=== PATIENT | female | born 1990 | race Caucasian/White ===

== ENCOUNTER 2019-11-26 16:00 | Outpatient (CLI) | payer OTHER, SELFPAY | END 2019-11-26 16:01 | disposition home or self-care (01) | LOC: CHSIMG 16:02 | PROVIDERS: PCP Family Medicine; Visit Provider Nurse Practitioner Family | DX: Z53.8 Procedure and treatment not carried out for other reasons (principal) | CPT/HCPCS: 99199 ==

== ENCOUNTER 2019-12-25 23:47 | Emergency (ER) | payer OTHER, SELFPAY ==
--- NOTE | ~2019-12-25 | CT_ITS ---
EXAMINATION: CT abdomen pelvis wo con DATE: 12/26/2019 03:45 INDICATION: Left flank pain. TECHNIQUE: Computed tomography (CT) of the abdomen and pelvis was performed without intravenous contr ast. Automated exposure control and iterative reconstruction technique were employed. The dose-length product was 1617.18 mGy-cm. COMPARISON: CT abdomen and pelvis 10/28/2016 FINDINGS: The visualized portions of the lung bases demonstrate mild atelectasis. No pleural effusion . The heart size is normal. No pericardial effusion. The liver and spleen are normal. There are magana es of cholecystectomy. The pancreas, adrenal glands, and kidneys are normal. There is an intrauterine device in expected position. There is diverticulosis of the colon without evidence of diverticulitis . There are no dilated loops of bowel. The appendix is normal. There are no pathologically enlarged l ymph nodes. There is no free intraperitoneal fluid. There is moderate thoracolumbar spondylosis. IMPRESSION: 1. No etiology for the patient's symptoms. Reviewed, dictated and finalized at location A. [employer]
--- NOTE | 2019-12-25 23:53 | ED.ABDPAIN ---
HPI - Abdominal Pain General Chief Complaint: Abdominal Pain Stated Complaint: Pelvic and side pain Time Seen by Provider: 12/25/19 23:51 Source: patient and RN notes reviewed Mode of arrival: ambulatory History of Present Illness MD elicited complaint: flank pain (left) Pertinent past history: past UTI Onset (ago): day(s) (2) Pain Consistency: intermittent Location: L flank Severity: moderate Pain scale (0-10): 8 Quality: stabbing and sharp Radiation: none Migration to: no migration Exacerbating factors: movement Relieving factors: nothing Associated symptoms: nausea Related Data Home Medications Medication Instructions Recorded Confirmed duloxetine 40 mg PO DAILY 12/26/19 12/26/19 levonorgestrel [Mirena] 1 device INTRAUTERINE ONCE 12/26/19 12/26/19 Allergies Allergy/AdvReac Type Severity Reaction Status Date / Time acetaminophen Allergy Intermediate Nausea and Verified 10/28/16 14:44 Vomiting latex Allergy Intermediate Rash Verified 10/28/16 14:44 tramadol Allergy Intermediate Dizziness Verified 10/28/16 14:44 HYDROCODONE BIT Allergy Intermediate Nausea and Uncoded 10/28/16 14:44 Vomiting KETOROLAC TROMETHAMINE AdvReac Intermediate dizziness Uncoded 10/28/16 14:44 Review of Systems Constitutional: Constitutional: Reports chills and Denies fever(s) Eyes: Eyes: Reports no additional eye complaints ENT: Reports system reviewed and no additional complaints, except as documented Cardiovascular: Cardiovascular: Reports no additional cardiovascular complaints Respiratory: Respiratory: Reports no additional respiratory complaints Gastrointestinal: Gastrointestinal: Denies constipation, Denies diarrhea, Reports nausea and Denies vomiting Genitourinary: Genitourinary: Reports as per HPI, Denies nocturia, Denies dysuria and Denies vaginal discharge Musculoskeletal: Musculoskeletal: Reports no additional musculoskeletal complaints Neurologic: Reports system reviewed and no additional complaints, except as documented Hematologic/Lymphatic: Hematologic/Lymphatic: Reports no additional hematologic/lymphatic complaints [facility] Past Medical History Medical History (Updated 12/26/19 @ 01:33 by Anam Ospina MD) Anxiety Surgical History Surgical History (Updated 12/26/19 @ 00:05 by Anam Ospina MD) History of myringotomy Previous section Social History Social History (Updated 12/26/19 @ 00:03 by Anam Ospina MD) Smoking status: Current every day smoker Alcohol intake: current Alcohol use details: Occasional Substance use: never Exam Const: General: healthy appearing, no acute distress and alert Nutritional Appearance: well nourished and obese morbidly obese Orientation/consciousness: patient oriented x3 Other: female nurse in room during examination. HENMT: Head: normal to inspection Ears: external ears normal General nose exam: Normal external nose present Mouth: Yes lip normal and Yes moist mucous membranes Eyes: Conjunctivae: conjunctivae normal Pupils: Equal, round and reactive pupils present EOM: EOMs intact bilaterally Neck: Neck: normal visual inspection Resp: Effort & Inspection: normal respiratory effort Auscultation: clear to auscultation bilaterally Cardio: Rate: regular rate Rhythm: regular rhythm GI: GI Palp: Yes Soft to palpation and Yes Tenderness to palpation present (GI) (LUQ) Auscultation: normal bowel sounds : General: Yes CVA tenderness on the left Back/Spine/Pelvis: Cervical Spine: cervical ROM normal Thoracic/Lumbar Spine: thoraco-lumbar ROM normal Skin: General skin exam: normal color Rashes: no rashes Neuro: General: patient oriented x3, moves all extremities and no focal motor deficits Speech: normal speech Extrem: General: normal to inspection and no clubbing, cyanosis or edema Psych: Appearance: grossly normal and well kempt Mental Status: mental status grossly normal Affect: normal affect Attitude: fabio
[2019-12-25 23:55] VITALS: BP 132/92; PULSE 94; RESP 20; TEMP 36.9; O2SAT 96
[2019-12-26] MEDS: KETOROLAC (*BKC) 60 MG/2 ML VIAL IM (00:04)
[2019-12-26 00:25] LABS: Basophils Absolute Auto 0.06 K/mm3 (0.00-0.10); Basophils Percent Auto 0.6 % (0.0-1.0); Eosinophils Absolute Auto 0.08 K/mm3 (0.02-0.50); Eosinophils Percent Auto 0.8 % (1.0-6.0); Hematocrit 40.2 % (35.0-49.0); Hemoglobin 13.5 g/dL (12.0-15.0); Immature Granulocyte Absolute 0.03 K/mm3 (0.00-0.00); Immature Granulocyte Percent A 0.3 % (0.0-0.0); Lymphocytes Absolute Auto 2.99 K/mm3 (1.10-4.50); Lymphocytes Percent Auto 29.9 % (18.0-42.0); Mean Corpuscular HGB Conc 33.6 g/dL (32.0-36.0); Mean Corpuscular Hemoglobin 29.4 pg (27.0-31.0); Mean Corpuscular Volume 87.6 fL (78.0-102.0); Mean Platelet Volume 10.8 fl (9.2-11.8); Neutrophils Absolute Auto 6.1 K/mm3 (1.7-7.2); Neutrophils Percent Auto 60.4 % (50.0-70.0); Platelet Count Result 242 K/mm3 (150-420); Red Blood Count 4.59 M/mm3 (4.20-5.40); Red Cell Distribution Width 13.1 % (11.6-14.4)
[2019-12-26 00:25] LABS: Add Urine Microscopic? YES; Appearance Urine Clear (Clear); Bilirubin Urine 2+ (Negative); Blood Urine Negative (Negative); Color Urine Yellow (Yellow); Glucose Urine UA Negative (Negative); Ketones Urine Trace (Negative); Leukocyte Esterase Ur Negative LEU/UL (Negative); Nitrate Urine Negative (Negative); Protein Urine Negative (Negative); Specific Grav Ur >= 1.030 (1.010-1.020); Urobilinogen Urine 0.2 mg/dL (0.2-1.0); pH Urine 5.5 (5.0-8.0)
[2019-12-26 00:30] LABS: Pregnancy On Board Control Positive; Specific Gravity Ur > 1.030 (1.010-1.035); Urine Pregnancy Test Negative
[2019-12-26 00:31] LABS: Bacteria Urine 1+ /hpf; RBC Urine 0-2 /hpf (0-2); Squamous Epithelial Cell Urine Few /hpf (Few); WBC Urine 0-3 /hpf (0-3)
[2019-12-26 00:36] LABS: Alanine Aminotransferase 20 U/L (14-59); Albumin Level 3.6 g/dL (3.4-5.0); Alkaline Phosphatase 23 U/L (46-116); Anion Gap 12.7 mmol/L (7-16); Aspartate Amino Transferase 15 U/L (15-37); Bilirubin,Total 0.2 mg/dL (0.00-1.00); Blood Urea Nitrogen 17 mg/dL (7-18); Calcium 8.8 mg/dL (8.5-10.1); Carbon Dioxide 26 mmol/L (21-32); Chloride 106 mmol/L (98-108); Estimated CRCL calculation 98 ml/min; Estimated Glomerular Filt Rate > 60; Glucose 89 mg/dL (70-99); Osmolality Calculated 292 mOsm/kg (285-295); Potassium 3.7 mmol/L (3.5-5.1); Sodium 141 mmol/L (136-145); Total Protein 7.5 g/dL (6.4-8.2)
[2019-12-26 00:41] LABS: CRP < 0.2 mg/dL (0.0-0.9)
[2019-12-26 01:32] VITALS: BP 123/66; PULSE 88; RESP 20; O2SAT 98
== END 2019-12-26 01:39 | disposition home or self-care (01) ==
PROVIDERS: Emergency Provider Emergency Medicine; PCP Family Medicine
DX: N83.202 Unspecified ovarian cyst, left side (principal)
CPT/HCPCS: 36415; 74176; 80053; 81001; 81025; 85025; 86140; 96372; 99283; J1885

== ENCOUNTER 2020-07-22 23:46 | Emergency (ER) | payer OTHER, SELFPAY ==
[2020-07-22 23:50] VITALS: BP 137/82; PULSE 91; RESP 20; TEMP 36.5; O2SAT 97
[2020-07-23] VITALS: PULSE 86
[2020-07-23 00:13] VITALS: BP 123/79; PULSE 82; RESP 18; O2SAT 98
--- NOTE | 2020-07-23 00:15 | ED.CHESTPAIN ---
HPI - Chest Pain General Chief Complaint: Chest Pain Stated Complaint: Chest pain Source: patient Mode of arrival: ambulatory History of Present Illness HPI narrative: This is a 29-year-old female presents to the emergency department with some atypical chest pain, musculoskeletal in nature reproducible with some a palpation, has been having this pain off and on for the last week with a episode of nausea with no vomiting currently no shortness of breath no abdominal pain patient is a current smoker morbidly obese with no history of coronary artery disease. Has been doing some heavy lifting, with currently no nausea or vomiting no abdominal pain no diarrhea constipation. Patient also states that she has been having some burning upon urination with no hematuria no fever chills. complaint: chest discomfort Onset (ago): day(s) Timing of current episode: episodic Onset: during rest Pain radiation: none Severity: mild Quality: aching Relieving factors: nothing Exacerbating factors: nothing Treatment prior to arrival: none Risk Factors Coronary artery disease risk factors: smoking history Related Data Home Medications Medication Instructions Recorded Confirmed duloxetine 40 mg PO DAILY 12/26/19 07/23/20 ergocalciferol (vitamin D2) 1,250 mcg PO WEEKLY 07/23/20 07/23/20 Allergies Allergy/AdvReac Type Severity Reaction Status Date / Time acetaminophen Allergy Intermediate Nausea and Verified 10/28/16 14:44 Vomiting latex Allergy Intermediate Rash Verified 10/28/16 14:44 tramadol Allergy Intermediate Dizziness Verified 10/28/16 14:44 HYDROCODONE BIT Allergy Intermediate Nausea and Uncoded 10/28/16 14:44 Vomiting KETOROLAC TROMETHAMINE AdvReac Intermediate dizziness Uncoded 10/28/16 14:44 Review of Systems Review of Systems: All systems reviewed & are unremarkable except as noted in HPI and below PMFSH Past Medical History Medical History Anxiety Surgical History Surgical History History of myringotomy Previous section Social History Social History Smoking status: Current every day smoker Alcohol intake: current Substance use: never Exam Const: General: no acute distress Orientation/consciousness: patient oriented x3 HENMT: Head: normal to inspection Eyes: Conjunctivae: conjunctivae normal Pupils: Equal, round and reactive pupils present EOM: EOMs intact bilaterally Neck: Neck: normal visual inspection, no lymphadenopathy and no meningeal signs Chest: Chest palpation & inspection: normal inspection of the chest Other: Reproducible chest pain with palpation Resp: Effort & Inspection: normal respiratory effort Auscultation: clear to auscultation bilaterally Cardio: Rate: regular rate Rhythm: regular rhythm GI: Auscultation: normal bowel sounds : General: Yes no CVA tenderness Urinary Catheter: Urinary Catheter: patent and draining Back/Spine/Pelvis: Back: no CVA tenderness Skin: General skin exam: normal color Rashes: no rashes Course Course Emergency Course: patient received IM Toradol which caused her pain to improve, also patient was tested for a UTI with urinalysis. Vital Signs Vital signs: Vital Signs Temperature 36.5 C 07/22/20 23:50 Pulse Rate 91 07/22/20 23:50 Respiratory Rate 20 07/22/20 23:50 Blood Pressure 137/82 07/22/20 23:50 Pulse Oximetry 97 07/22/20 23:50 Temperature 36.5 C 07/22/20 23:50 Pulse Rate 82 07/23/20 00:13 Respiratory Rate 18 07/23/20 00:13 Blood Pressure 123/79 07/23/20 00:13 Pulse Oximetry 98 07/23/20 00:13 MDM - Chest Pain ECG Data EKG #1: Attestation: I personally reviewed and interpreted this ECG as follows: ECG completion date: 07/23/20 ECG completion time: 00:19 Prior ECG tracings: not avail
[2020-07-23] MEDS: KETOROLAC (*BKC) 60 MG/2 ML VIAL IM (00:21)
[2020-07-23 00:33] LABS: Add Urine Microscopic? YES; Appearance Urine Clear (Clear); Bilirubin Urine Negative (Negative); Blood Urine Negative (Negative); Color Urine Yellow (Yellow); Glucose Urine UA Negative (Negative); Ketones Urine Negative (Negative); Leukocyte Esterase Ur Trace (Negative); Nitrate Urine Negative (Negative); Protein Urine Negative (Negative); Specific Grav Ur >= 1.030 (1.010-1.020); Urobilinogen Urine 0.2 mg/dL (0.2-1.0); pH Urine 5.5 (5.0-8.0)
[2020-07-23 00:43] LABS: Bacteria Urine Trace /hpf; Squamous Epithelial Cell Urine Moderate /hpf (Few); Trichomonas Urine Present /hpf; WBC Urine 21-30 /hpf (0-3)
[2020-07-23] MEDS: NITROFURANTOIN MONOHYD MACROCR 100 MG CAP PO (01:02)
[2020-07-23] MEDS: metroNIDAZOLE 250 MG TABLET 500 MG PO (01:02)
[2020-07-23 01:03] VITALS: BP 138/78; PULSE 80; RESP 18; TEMP 36.4; O2SAT 98
== END 2020-07-23 01:05 | disposition home or self-care (01) ==
PROVIDERS: Emergency Provider Emergency Medicine; PCP Family Medicine
DX: M94.0 Chondrocostal junction syndrome [Tietze] (principal); N39.0 Urinary tract infection, site not specified
CPT/HCPCS: 81001; 93005; 96372; 99283; A9270; J1885

== ENCOUNTER 2020-09-28 11:46 | Outpatient (CLI) | payer OTHER, SELFPAY ==
[2020-09-29 14:22] LABS: SARS-CoV-2 RNA PCR Negative
== END 2020-09-28 11:47 | disposition home or self-care (01) ==
PROVIDERS: PCP Family Medicine; Visit Provider Family Medicine
DX: Z20.828 Contact with and (suspected) exposure to other viral communicable diseases (principal)
CPT/HCPCS: 87635; C9803; U0003

== ENCOUNTER 2020-09-30 10:29 | Outpatient (CLI) | payer OTHER, SELFPAY ==
[2020-09-30 11:13] LABS: SARS-CoV-2 Ag Negative (Negative)
== END 2020-09-30 10:30 | disposition home or self-care (01) ==
LOC: CHSLAB 10:31
PROVIDERS: PCP Family Medicine; Visit Provider Family Medicine
DX: Z20.828 Contact with and (suspected) exposure to other viral communicable diseases (principal)
CPT/HCPCS: 87426

== ENCOUNTER 2020-10-02 11:15 | Outpatient (CLI) | payer OTHER, SELFPAY ==
[2020-10-02 12:24] LABS: Influenza Control Valid (Valid)
[2020-10-04 18:34] LABS: SARS-CoV-2 RNA PCR Negative
== END 2020-10-02 11:16 | disposition home or self-care (01) ==
LOC: CHSLAB 11:18
PROVIDERS: PCP Family Medicine; Visit Provider Family Medicine
DX: R50.9 Fever, unspecified (principal); Z20.828 Contact with and (suspected) exposure to other viral communicable diseases
CPT/HCPCS: 87635; 87804; C9803; U0003

== ENCOUNTER 2020-12-19 19:04 | Emergency (ER) | payer OTHER, SELFPAY ==
--- NOTE | ~2020-12-19 | XR_ITS ---
EXAMINATION: XR ribs RT 2V DATE: 12/19/2020 19:45 INDICATION: Right rib pain. TECHNIQUE: 4 views of the right ribs were obtained. COMPARISON: Chest 2 views 03/12/2018 FINDINGS: There is no right-sided pneumonia, pleural effusion, or pneumothorax. The heart size is nor mal. Surgical clips in the right upper quadrant are likely from cholecystectomy. IMPRESSION: 1. No rib fracture. Reviewed, dictated and finalized at location A. ANICAL SPECIALIST IMPRESSION: 1. No rib fracture.
[2020-12-19 19:23] VITALS: BP 149/105; PULSE 91; RESP 18; TEMP 36.5; O2SAT 98
[2020-12-19] MEDS: ACETAMINOPHEN 500 MG TABLET 1000 MG PO (19:31)
--- NOTE | 2020-12-19 19:51 | ED.EXTPRO ---
HPI - Extremity Problem General Chief complaint: Extremity Problem,Nontraumatic Stated complaint: Pain in back Source: patient Mode of arrival: ambulatory Limitations: no limitations History of Present Illness HPI Narrative: this is a 30-year-old patient was diagnosed with COVID approximately 4 days ago, has been having a cough and over the last couple of hours has felt pain in her right mid rib area with some severe coughing. Patient was not short of breath O vital signs are stable O2 sats 98% cough is nonproductive with no fever or chills no nausea vomiting no abdominal pain no chest pain. MD Complaint: other ( Right mid medial rib pain) Onset (ago): day(s) Pain Consistency: intermittent Location: right Severity scale (1-10): 6 Quality: dull Radiation: none Relieving factors: nothing Exacerbating factors: nothing Associated symptoms: other ( cough) Related Data Home Medications Medication Instructions Recorded Confirmed duloxetine 40 mg PO DAILY 12/26/19 12/19/20 Allergies Allergy/AdvReac Type Severity Reaction Status Date / Time latex Allergy Intermediate Rash Verified 10/28/16 14:44 tramadol Allergy Intermediate Dizziness Verified 10/28/16 14:44 ketorolac Allergy Mild Rash Verified 07/24/20 17:13 hydrocodone AdvReac Mild Vomiting Verified 07/24/20 17:12 Review of Systems Review of Systems: All systems reviewed & are unremarkable except as noted in HPI and below PMFSH Past Medical History Medical History (Updated 12/19/20 @ 19:55 by Alexi Kwok MD) Anxiety Surgical History Surgical History History of myringotomy Previous section Social History Social History Smoking status: Current every day smoker Alcohol intake: current Substance use: never Exam Const: General: no acute distress Orientation/consciousness: patient oriented x3 HENMT: Head: normal to inspection Eyes: Conjunctivae: conjunctivae normal Pupils: Equal, round and reactive pupils present EOM: EOMs intact bilaterally Neck: Neck: normal visual inspection, no lymphadenopathy and no meningeal signs Chest: Chest palpation & inspection: normal inspection of the chest Other: Tenderness with palpation mid axillary mid rib area with some on the right with palpation Resp: Effort & Inspection: normal respiratory effort Auscultation: clear to auscultation bilaterally Cardio: Rate: regular rate Rhythm: regular rhythm GI: GI Palp: Yes Soft to palpation : General: Yes no CVA tenderness Back/Spine/Pelvis: Back: no CVA tenderness Skin: General skin exam: normal color Rashes: no rashes Extrem: General: normal to inspection and no pedal edema Psych: Appearance: grossly normal Mental Status: mental status grossly normal Thought content: Yes Normal thought content present Course Course Emergency Course: patient given a g of Tylenol and which has improved her discomfort, reviewed x-ray which shows no acute fractures. Vital Signs Vital signs: Vital Signs Temperature 36.5 C 12/19/20 19:23 Pulse Rate 91 12/19/20 19:23 Respiratory Rate 18 12/19/20 19:23 Blood Pressure 149/105 H 12/19/20 19:23 Pulse Oximetry 98 12/19/20 19:23 Temperature 36.5 C 12/19/20 19:23 Pulse Rate 91 12/19/20 19:23 Respiratory Rate 18 12/19/20 19:23 Blood Pressure 149/105 H 12/19/20 19:23 Pulse Oximetry 98 12/19/20 19:23 Critical Care Time Critical Care Time Critical Care Time: No Discharge Plan Discharge Clinical Impression: Cough Sprain, ribs Qualifiers: Encounter type: initial encounter Qualified Code(s): S23.41XA - Sprain of ribs, initial encounter Patient Disposition: Home, Self-Care Condition: Stable Instructions: Antibiotic Form, Sprain (ED) Additional Instructions: take medicine as prescribed, can use Tylenol extra-strength for pain and follow-up with ruthie
[2020-12-19 19:57] VITALS: BP 140/97; PULSE 85; RESP 18; TEMP 36.6; O2SAT 98
== END 2020-12-19 20:03 | disposition home or self-care (01) ==
PROVIDERS: Emergency Provider Emergency Medicine; PCP Family Medicine
DX: R05 Cough (principal); S23.41XA Sprain of ribs, initial encounter
CPT/HCPCS: 71100; 99283

== ENCOUNTER 2021-04-07 13:54 | Outpatient (CLI) | payer OTHER, SELFPAY ==
[2021-04-07 14:59] LABS: SARS-CoV-2 RNA PCR Negative (Negative)
== END 2021-04-07 13:55 | disposition home or self-care (01) ==
LOC: CHSLAB 13:57
PROVIDERS: PCP Family Medicine; Visit Provider Family Medicine
DX: J00 Acute nasopharyngitis [common cold] (principal); Z20.822 Contact with and (suspected) exposure to COVID-19
CPT/HCPCS: C9803; U0003; U0005

== ENCOUNTER 2021-05-14 23:45 | Emergency (ER) | payer OTHER, SELFPAY ==
--- NOTE | ~2021-05-14 | CT_ITS ---
EXAMINATION: CT abdomen pelvis wo con DATE: 05/15/2021 01:14 Indication: Microhematuria , bilateral flank pain. TECHNIQUE: Computed tomography (CT) of the abdomen and pelvis was performed without intravenous contr ast. Automated exposure control and iterative reconstruction technique were employed. Exam dose: 133 6.99 mGy-cm total exam DLP. COMPARISON: 12/26/[address] abdomen pelvis FINDINGS: There is minimal dependent right lower lobe atelectasis. Normal heart size. No pericardial or pleural effusion. No hepatic space-occupying mass lesion. Status post cholecystectomy. No bile duct or pancreatic duct dilatation. No pancreatic mass lesion or calcification. Normal splenic size. Normal morphology of the adrenal glands. No renal mass lesion or urinary tract calculus or hydroureteronephrosis. Normal caliber of the abdominal aorta. No intraperitoneal or retroperitoneal or pelvic mass lesion or adenopathy or ascites. There is an IUD within the uterus. Uterus and adnexal areas are otherwise unremarkable. The urinary b ladder is relatively evacuated, unremarkable. Normal appendix. There is diverticulosis of the left and right colon; no CT evidence of diverticulitis. No bowel obstr uction or intraperitoneal free air is detected. Small fat-containing umbilical hernia. Other than degenerative spurring of the thoracic and lumbar spine the included skeletal structures ar e unremarkable. IMPRESSION: No urinary tract calculus or hydroureteronephrosis Normal appendix Diverticulosis of left and right colon; no CT evidence of diverticulitis IUD within uterus Reviewed, dictated and finalized at Location [facility]. Reviewed, dictated and finalized at location A.
[2021-05-14 23:45] VITALS: BP 128/78; PULSE 78; RESP 20; TEMP 36.4; O2SAT 97
--- NOTE | 2021-05-14 23:52 | ED.ABDPAIN ---
HPI - Abdominal Pain General Chief Complaint: Abdominal Pain Stated Complaint: PAIN Time Seen by Provider: 05/14/21 23:52 Source: patient Mode of arrival: ambulatory Limitations: no limitations History of Present Illness HPI narrative: 30-year-old woman comes in today complaining of left lower abdominal pain radiating to her groin and right flank pain that has been present for a week. She states that she has had some dysuria, urgency and frequency. Patient states that she has had nausea but no vomiting. She denies constipation, diarrhea, blood in her stools, blood in her urine, Cough, cold symptoms, fever, chills. MD elicited complaint: abdominal pain Pertinent past history: none Onset (ago): week(s) (1) Location: LLQ and R flank Severity: severe Quality: sharp Radiation: none Migration to: no migration Exacerbating factors: nothing Associated symptoms: nausea Related Data Allergies Allergy/AdvReac Type Severity Reaction Status Date / Time latex Allergy Intermediate Rash Verified 10/28/16 14:44 tramadol Allergy Intermediate Dizziness Verified 10/28/16 14:44 ketorolac Allergy Mild Rash Verified 07/24/20 17:13 hydrocodone AdvReac Mild Vomiting Verified 07/24/20 17:12 Review of Systems Review of Systems: All systems reviewed & are unremarkable except as noted in HPI and below Constitutional: Constitutional: Denies chills and Denies fever(s) Eyes: Eyes: Denies change in vision and Denies photophobia ENT: Denies nasal congestion and Denies sore throat Cardiovascular: Cardiovascular: Denies chest pain and Denies radiating jaw, neck or arm pain Respiratory: Respiratory: Denies cough, Denies dyspnea and Denies wheezing Gastrointestinal: Gastrointestinal: Reports abdominal pain, Denies diarrhea, Reports nausea and Denies vomiting Genitourinary: Genitourinary: Denies hematuria, Reports nocturia and Reports dysuria Musculoskeletal: Musculoskeletal: Denies back pain, Denies arthralgias and Denies joint swelling Integumentary/Breasts: Skin/Breast: Denies pruritus, Denies erythema and Denies rash Neurologic: Denies vertigo, Denies dizziness and Denies syncope Hematologic/Lymphatic: Hematologic/Lymphatic: Denies easy bleeding and Denies easy bruising Allergic/Immunologic: Allergic/Immunologic: Denies lip swelling and Denies throat swelling [facility] Past Medical History Medical History (Updated 05/15/21 @ 01:40 by Gerald Garcia MD) Anxiety Surgical History Surgical History History of myringotomy Previous section Social History Social History Smoking status: Current every day smoker Alcohol intake: current Alcohol use details: Occasional Substance use: never Exam Const: General: healthy appearing and alert Orientation/consciousness: patient oriented x3 Limitations: no limitations Other: [id number] acute distress HENMT: Head: normal to inspection Ears: external ears normal, TM's normal bilaterally and EAC's normal General nose exam: Normal nares present Face and sinus: normal facial exam Mouth: Yes moist mucous membranes Throat: posterior oropharynx normal Eyes: Conjunctivae: conjunctivae normal Pupils: Equal, round and reactive pupils present EOM: EOMs intact bilaterally Resp: Effort & Inspection: normal respiratory effort and not labored Auscultation: clear to auscultation bilaterally, no rales, no rhonchi and no wheezes Cardio: Rate: regular rate Rhythm: regular rhythm Heart sounds: no murmurs GI: GI Palp: Yes Soft to palpation, Yes Tenderness to palpation present (GI) ( mild left lower quadrant and mild right flank tenderness), No Guarding due to palpation present (GI), No Rigid due to palpation and No Palpable mass present Auscultation: normal bowel sounds Skin: General skin exam: normal color, no jaundice and no pallor Rashes: no rashes Neuro: Gene
[2021-05-15] MEDS: SODIUM CHLORIDE 0.9% IV 1,000 ML 999 ML IV CONT (00:25)
[2021-05-15] MEDS: PANTOPRAZOLE SODIUM IV 40 MG VIAL IV PUSH (00:25)
[2021-05-15] MEDS: ONDANSETRON INJ 4 MG/2 ML VIAL IV PUSH (00:27)
[2021-05-15 00:30] LABS: Basophils Absolute Auto 0.07 K/mm3 (0.00-0.10); Basophils Percent Auto 0.8 % (0.0-1.0); Eosinophils Absolute Auto 0.12 K/mm3 (0.02-0.50); Eosinophils Percent Auto 1.3 % (1.0-6.0); Hematocrit 42.1 % (35.0-49.0); Hemoglobin 13.9 g/dL (12.0-15.0); Immature Granulocyte Absolute 0.02 K/mm3 (0.00-0.00); Immature Granulocyte Percent A 0.2 % (0.0-0.0); Lymphocytes Absolute Auto 3.07 K/mm3 (1.10-4.50); Lymphocytes Percent Auto 33.3 % (18.0-42.0); Mean Corpuscular Hemoglobin 29.1 pg (27.0-31.0); Mean Corpuscular Volume 88.1 fL (78.0-102.0); Mean Platelet Volume 10.3 fl (9.2-11.8); Monocytes Percent Auto 6.5 % (2.0-11.0); Neutrophils Absolute Auto 5.3 K/mm3 (1.7-7.2); Neutrophils Percent Auto 57.9 % (50.0-70.0); Platelet Count Result 291 K/mm3 (150-420); Red Blood Count 4.78 M/mm3 (4.20-5.40); Red Cell Distribution Width 12.6 % (11.6-14.4); White Blood Count 9.2 K/mm3 (4.8-10.8)
[2021-05-15 00:36] LABS: Add Urine Microscopic? YES; Appearance Urine Cloudy (Clear); Bilirubin Urine Negative (Negative); Blood Urine 2+ (Negative); Color Urine Light Yellow (Yellow); Glucose Urine UA Negative (Negative); Ketones Urine Negative (Negative); Leukocyte Esterase Ur Trace LEU/UL (Negative); Nitrate Urine Negative (Negative); Pregnancy On Board Control Positive; Protein Urine Negative (Negative); Specific Grav Ur >= 1.030 (1.010-1.020); Urine Pregnancy Test Negative; Urobilinogen Urine 0.2 mg/dL (0.2-1.0)
[2021-05-15 00:38] LABS: Alanine Aminotransferase 32 U/L (14-59); Albumin Level 3.9 g/dL (3.4-5.0); Alkaline Phosphatase 28 U/L (46-116); Anion Gap 12 mmol/L (8-16); Aspartate Amino Transferase 19 U/L (15-37); Bilirubin,Total 0.2 mg/dL (0.00-1.00); Blood Urea Nitrogen 20 mg/dL (7-18); Carbon Dioxide 27 mmol/L (21-32); Chloride 104 mmol/L (98-108); Estimated Glomerular Filt Rate > 60; Glucose 86 mg/dL (70-99); Lipase 123 U/L (73-393); Osmolality Calculated 297 mOsm/kg (285-295); Potassium 3.7 mmol/L (3.5-5.1); Sodium 143 mmol/L (136-145); Total Protein 7.7 g/dL (6.4-8.2)
[2021-05-15 00:43] LABS: Lactic Acid Reflex 0.8 mmol/L (0.4-2.0)
[2021-05-15 00:46] LABS: Bacteria Urine 2+ /hpf; Squamous Epithelial Cell Urine Many /hpf (Few); WBC Urine 0-3 /hpf (0-3)
[2021-05-15 02:01] VITALS: BP 112/68; PULSE 68; RESP 20; TEMP 36.2; O2SAT 98
== END 2021-05-15 02:10 | disposition home or self-care (01) ==
PROVIDERS: Emergency Provider Emergency Medicine; PCP Family Medicine
DX: R10.32 Left lower quadrant pain (principal)
CPT/HCPCS: 36415; 74176; 80053; 81001; 81025; 83605; 83690; 85025; 96361; 96374; 96375; 99283; 99284; C9113; J2405; J7030

== ENCOUNTER 2021-05-25 09:04 | Outpatient (CLI) | payer OTHER, SELFPAY ==
--- NOTE | ~2021-05-25 | US_ITS ---
EXAMINATION: US pelvic complete w TV DATE: 05/25/2021 09:41 INDICATION: Left lower quadrant pain TECHNIQUE: Multiple transabdominal and endovaginal sonographic images of the pelvis were obtained. COMPARISON: CT, 05/15/2021 FINDINGS: The uterus measures 8.3 x 4.3 x 4.9 cm. An IUD is in expected position. Nabothian cysts are noted in the cervix. The endometrial complex measures 9 mm. The right ovary measures 3.0 x 1.2 x 1.8 cm. The left ovary measures 4.0 x 2.8 x 3.2 cm and contains a 2.5 cm cyst. There is normal vascular flow in the ovaries. There is no free fluid in the pelvis. IMPRESSION: 1. No sonographic correlate for the patient's symptoms. Reviewed, dictated and finalized at location A.
== END 2021-05-25 09:05 | disposition home or self-care (01) ==
PROVIDERS: PCP Family Medicine; Visit Provider Nurse Practitioner Family
DX: R10.32 Left lower quadrant pain (principal)
CPT/HCPCS: 76830; 76856

== ENCOUNTER 2021-09-08 12:37 | Outpatient (CLI) | payer OTHER, SELFPAY ==
[2021-09-08 13:28] LABS: Influenza A QL RT-PCR Negative (Negative); Influenza B QL RT-PCR Negative (Negative); SARS-CoV-2 RNA PCR Negative (Negative)
== END 2021-09-08 12:38 | disposition home or self-care (01) ==
LOC: CHSLAB 12:40
PROVIDERS: PCP Family Medicine; Visit Provider Family Medicine
DX: J00 Acute nasopharyngitis [common cold] (principal); Z20.822 Contact with and (suspected) exposure to COVID-19
CPT/HCPCS: 87502; C9803; U0003; U0005

== ENCOUNTER 2021-09-16 09:53 | Outpatient (CLI) | payer OTHER, SELFPAY ==
--- NOTE | ~2021-09-16 | XR_ITS ---
XR sinus min 3V 09/16/2021 10:11 Indication: Sinusitis Procedure: 5 views of the sinuses Comparison: No prior studies for comparison. Findings: Sinuses are pneumatized. No significant opacification or air-fluid level demonstrated. Orbi ts intact. Rightward nasal septal deviation. Impression: 1: No significant sinus disease identified. Reviewed, dictated and finalized at location A. ING COACH Impression: 1: No significant sinus disease identified.
== END 2021-09-16 09:54 | disposition home or self-care (01) ==
LOC: CHSIMG 09:55
PROVIDERS: PCP Family Medicine; Visit Provider Nurse Practitioner Family
DX: J32.9 Chronic sinusitis, unspecified (principal); R09.3 Abnormal sputum
CPT/HCPCS: 70220

== ENCOUNTER 2021-10-20 14:10 | Outpatient (CLI) | payer OTHER, SELFPAY ==
--- NOTE | ~2021-10-20 | XR_ITS ---
EXAMINATION:XR_[id number]_CR DATE: 10/20/2021 14:49 INDICATION: Neck pain TECHNIQUE: AP, lateral, and odontoid views of the cervical spine are provided. COMPARISON: None FINDINGS: Alignment is normal. The odontoid is intact. No fracture is identified. Vertebral body heig hts and disk spaces are normal. Prevertebral soft tissues are normal. IMPRESSION: 1. No acute osseous abnormality. Reviewed, dictated and finalized at location F. [employer]UCTION [employer]LLER
== END 2021-10-20 14:11 | disposition home or self-care (01) ==
LOC: CHSLAB 14:13
PROVIDERS: PCP Family Medicine; Visit Provider Family Medicine
DX: M54.2 Cervicalgia (principal)
CPT/HCPCS: 72040

== ENCOUNTER 2022-03-22 08:18 | Outpatient (CLI) | payer OTHER, SELFPAY ==
--- NOTE | ~2022-03-22 | US_ITS ---
EXAMINATION: US soft tissue upper back DATE: 03/22/2022 08:51 INDICATION: Lipoma with chronic lumps on the back for years. TECHNIQUE: Multiple grayscale and Doppler ultrasound images of the region of concern at the back were obtained. COMPARISON: None FINDINGS: There are 3 ill-defined regions of increased echogenicity of the subcutaneous fat at the region of co ncern. The largest measures 1.3 x 1.2 x 0.9 cm at the right lower back with smaller lesions measuring 11 x 10 x 8 mm at the right lower back, 9 x 6 x 3 mm at the left lower back and 7 x 6 x 6 mm in the mid back. There appear to be multiple corresponding subtle ill-defined nodular regions with fat atten uation but slightly higher than the surrounding subcutaneous fat at the posterior lower chest and abd omen on prior CT studies dating back to 09/23/2015 suggesting a benign etiology. IMPRESSION: 1. Multiple ill-defined regions of increased echogenicity of the subcutaneous fat centered at the pal pable abnormalities of concern correspond to several fat attenuation lesions on CT dating back to 5. Differential would include sequela of chronic inflammation, hibernomas or less likely lipomas. Reviewed, dictated and finalized at location B. IMPRESSION: 1. Multiple ill-defined regions of increased echogenicity of the subcutaneous f at centered at the palpable abnormalities of concern correspond to several fat attenuation lesions on CT dating back to 2014. Differential would include seque la of chronic inflammation, hibernomas or less likely lipomas.
== END 2022-03-22 08:19 | disposition home or self-care (01) ==
LOC: CHSIMG 08:20
PROVIDERS: PCP Family Medicine; Visit Provider Nurse Practitioner Family
DX: D17.9 Benign lipomatous neoplasm, unspecified (principal)
CPT/HCPCS: 76604

== ENCOUNTER 2022-06-19 15:20 | Emergency (ER) | payer OTHER, SELFPAY ==
--- NOTE | ~2022-06-19 | XR_ITS ---
EXAM: XR ankle LT 2V, XR foot LT 2V DATE: 06/19/2022 15:55 HISTORY: lateral ankle/heel pain . COMPARISON: None available. FINDINGS: Normal mineralization. No fracture or dislocation. No lytic or blastic lesion. Osteophytos is at the tibiotalar joint large Achilles enthesophyte. Tiny plantar enthesophyte. No erosion or maru osteal change. Soft tissues within normal limits. IMPRESSION: Degenerative change at the tibiotalar joint. Large Achilles enthesophyte. Minor plantar e nthesopathy. Reviewed, dictated and finalized at location K. IMPRESSION: Degenerative change at the tibiotalar joint. Large Achilles entheso phyte. Minor plantar enthesopathy.
[2022-06-19 15:29] VITALS: BP 122/88; PULSE 82; RESP 16; TEMP 36.8; O2SAT 100
[2022-06-19] MEDS: KETOROLAC (*BKC) 60 MG/2 ML VIAL IM (15:47)
--- NOTE | 2022-06-19 16:48 | ED.LOWEXIN ---
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 There is no swelling no inflammation no fever chills no known injury. complaint: other ( Achilles tendon tenderness and the ball of her foot on the left tender) Onset (ago): day(s) Severity: moderate Severity scale (1-10): 6 Relieving factors: NSAID Exacerbating factors: weight bearing, movement and palpation Related Data Home Medications Medication Instructions Recorded Confirmed escitalopram oxalate 10 mg tablet 10 mg PO DAILY 06/19/22 06/19/22 naproxen 500 mg tablet 500 mg PO DAILY 06/19/22 06/19/22 Allergies Allergy/AdvReac Type Severity Reaction Status Date / Time latex Allergy Intermediate Rash Verified 10/28/16 14:44 tramadol Allergy Intermediate Dizziness Verified 10/28/16 14:44 hydrocodone AdvReac Mild Stopped Verified 06/19/22 15:36 Breathing Review of Systems Review of Systems: All systems reviewed & are unremarkable except as noted in HPI and below PMFSH Past Medical History Medical History (Updated 06/19/22 @ 16:51 by Alexi Kwok MD) Anxiety Surgical History Surgical History History of myringotomy Previous section Social History Social History Smoking status: Current every day smoker Alcohol intake: current Alcohol use details: Occasional Substance use: never Exam Const: General: healthy appearing and no acute distress Nutritional Appearance: well nourished HENMT: Head: normal to inspection Face and sinus: normal facial exam Mouth: Yes Normal oral and palatal mucosa present Eyes: Conjunctivae: conjunctivae normal Pupils: Equal, round and reactive pupils present EOM: EOMs intact bilaterally Neck: Neck: normal visual inspection, no lymphadenopathy and no meningeal signs Chest: Chest palpation & inspection: normal inspection of the chest Resp: Effort & Inspection: normal respiratory effort Auscultation: clear to auscultation bilaterally Cardio: Rate: regular rate Rhythm: regular rhythm GI: GI Palp: Yes Soft to palpation Auscultation: normal bowel sounds Skin: General skin exam: normal color Rashes: no rashes Neuro: General: patient oriented x3, moves all extremities, no meningeal signs and no focal motor deficits Extrem: General: normal to inspection and no clubbing, cyanosis or edema Psych: Mental Status: mental status grossly normal Course Course Emergency Course: Patient received IM Toradol and pain level has improved significantly will place an Pradeep wrap and advised patient to take ibuprofen rest and follow up primary if symptoms persist or worsen. Vital Signs Vital signs: Vital Signs Temperature 36.8 C 06/19/22 15:29 Pulse Rate 82 06/19/22 15:29 Respiratory Rate 16 06/19/22 15:29 Blood Pressure 122/88 06/19/22 15:29 Pulse Oximetry 100 06/19/22 15:29 Oxygen Delivery Room Air 06/19/22 15:29 Temperature 36.8 C 06/19/22 15:29 Pulse Rate 82 06/19/22 15:29 Respiratory Rate 16 06/19/22 15:29 Blood Pressure 122/88 06/19/22 15:29 Pulse Oximetry 100 06/19/22 15:29 Oxygen Delivery Room Air 06/19/22 15:29 Critical Care Time Critical Care Time Critical Care Time: No Discharge Plan Discharge Clinical Impression: Tendinitis of ankle Patient Disposition: Home, Self-Care Condition: Stable Instructi
[2022-06-19 17:02] VITALS: BP 143/7; PULSE 70; RESP 6; TEMP 36.8; O2SAT 98
== END 2022-06-19 17:03 | disposition home or self-care (01) ==
PROVIDERS: Emergency Provider Emergency Medicine; PCP Family Medicine
DX: M76.62 Achilles tendinitis, left leg (principal)
CPT/HCPCS: 73600; 73620; 96372; 99283; J1885

== ENCOUNTER 2022-06-24 07:26 | Outpatient (CLI) | payer OTHER, SELFPAY ==
--- NOTE | ~2022-06-24 | MR_ITS ---
EXAMINATION: MR foot LT wo con DATE: 06/24/2022 09:17 INDICATION: Left foot pain. TECHNIQUE: Magnetic resonance imaging (MRI) of the left foot was performed without intravenous contra st. COMPARISON: Left foot radiographs 06/19/2022 FINDINGS: Bone alignment is normal. No fracture. There is mild osteoarthritis of first metatarsophala ngeal joint and some of the interphalangeal joints. Lisfranc ligament is normal. The flexor and exten sor tendons are normal. The musculature is normal. IMPRESSION: 1. Mild polyarticular osteoarthritis. Reviewed, dictated and finalized at location A.
--- NOTE | ~2022-06-24 | MR_ITS ---
EXAMINATION: MR ankle LT wo con DATE: 06/24/2022 09:17 INDICATION: Left foot pain. Achilles tendinitis. TECHNIQUE: Magnetic resonance imaging (MRI) of the left ankle was performed without intravenous contr ast. Sequences included sagittal PD-weighted FS FSE, sagittal PD-weighted FSE, coronal PD-weighted FS FSE, coronal PD-weighted FSE, axial PD-weighted FS FSE, and axial PD-weighted FSE. COMPARISON: Left ankle radiographs 06/19/2022 FINDINGS: Medial ankle ligaments: There are changes of prior sprain of the deltoid ligament characterized by increased signal of the jacinto perficial component distally. The deep component of deltoid ligament is intact. Lateral ankle ligaments: There are changes of prior sprains of anterior talofibular ligament, calcaneofibular ligament, and an terior tibiofibular ligament characterized by thickening and increased signal intensity. Posterior ta lofibular ligament and posterior tibiofibular ligaments are intact. Tendons: The medial and anterior ankle tendons are normal. The peroneal tendons are normal. There is mild Achi lles tendinopathy. There is an enthesophyte at the Achilles attachment on calcaneus. Plantar fascia: Normal. Bones/other: There is an osteochondral lesion of posteromedial talar dome measuring 11 x 7 mm characterized by inc reased signal intensity of the subchondral bone. No evidence of an unstable fragment. There is mild o steoarthritis of talonavicular joint. Fluid: There is a 2.1 x 1.9 x 0.7 cm ganglion cyst dorsolateral to the talonavicular joint. There is a small ankle joint effusion. IMPRESSION: 1. Osteochondral lesion of posteromedial talar dome. 2. Changes of medial and lateral ankle sprains. 3. 2.1 x 1.9 x 0.7 cm ganglion cyst dorsolateral to the talonavicular joint. 4. Mild Achilles tendinopathy. Reviewed, dictated and finalized at location A.
== END 2022-06-24 07:27 | disposition home or self-care (01) ==
LOC: CHSIMG 07:27
PROVIDERS: PCP Family Medicine; Visit Provider Family Medicine
DX: M79.672 Pain in left foot (principal); M76.62 Achilles tendinitis, left leg
CPT/HCPCS: 73718; 73721

== ENCOUNTER 2022-07-11 15:34 | Outpatient (RCR) | payer OTHER, SELFPAY ==
--- NOTE | 2022-07-11 17:22 | PTOPEVAL1 ---
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 She turned the corner and heard a loud pop in her L ankle. She cannot recall how her foot was positioned when it popped. It also felt like it locked up as well. She felt she was unable to walk after this and had a large amount of swelling and went straight to the ER. She has had multiple sprains in the past but knew that this was different right away. She received an LALA wrap to help with swelling. She was having difficulty with sleeping but reports that this has been getting better. She reports pain now when standing on her ankle and walking. She identifies pain at achilles region (medial> lateral) and has increased pain with plantar flexion. She bought a boot to use and reports this gives a lot of relief to her ankle. Reports that pain is staying the same over time. Pt reports some N/T when foot is elevated and she feels it on the plantar surface of her toes. She went to an ortho MD yesterday who said surgery could be an option. Pt does not yet have a follow-up with a foot/ankle surgeon but plans to get scheduled soon . Wants to be able to work without pain. Reported Pain Level Pain Score 6: Self Report Assessment PT Clinical Summary Pt presents to physical therapy with L ankle pain, decreased mobility, decreased strength, and antalgic gait. 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 She was provided with an HEP focused on improving ankle/foot mobility and strength within her tolerance. She will benefit from skilled PT to facilitate symptom relief, improve the aforementioned impairments, and return to functional and recreational activities. Plan of Care Interventions Electrical Stimulation,Gait Training,Hot Pack/Cold Pack,Manual Therapy,Neuro Re-education,Patient/ Caregiver Educati,Therapeutic Activities, Therapeutic Exercise PT Services Indicated Yes Treatment Frequency and 2x week for 8 weeks Duration These treatments will address the objective and functional deficits as define
== END 2022-07-20 13:44 | disposition home or self-care (01) ==
LOC: CHSPT 15:34
PROVIDERS: PCP Family Medicine; Visit Provider Nurse Practitioner Family
DX: M93.279 Osteochondritis dissecans, unspecified ankle and joints of foot (principal)
CPT/HCPCS: 97110; 97161

== ENCOUNTER 2022-08-07 15:44 | Outpatient (CLI) | payer OTHER, SELFPAY ==
[2022-08-07 16:42] LABS: RSV Control CHS Valid (Valid)
[2022-08-07 16:43] LABS: Influenza A QL RT-PCR Negative (Negative); Influenza B QL RT-PCR Negative (Negative); SARS-CoV-2 RNA PCR Negative (Negative)
== END 2022-08-07 15:45 | disposition home or self-care (01) ==
LOC: CHSLAB 15:47
PROVIDERS: PCP Family Medicine; Visit Provider Family Medicine
DX: R05.1 Acute cough (principal); Z20.822 Contact with and (suspected) exposure to COVID-19
CPT/HCPCS: 87420; 87502; C9803; U0003; U0005

== ENCOUNTER 2022-09-22 14:54 | Emergency (ER) | payer OTHER, SELFPAY ==
--- NOTE | ~2022-09-22 | XR_ITS ---
EXAMINATION: XR foot RT min 3V DATE: 09/22/2022 15:33 INDICATION: Right foot bruising TECHNIQUE: Dorsoplantar, lateral, and 2 oblique views of the right foot were obtained. COMPARISON: 02/21/2017 FINDINGS: There is an acute, essentially nondisplaced neck fracture of the fourth proximal phalanx. T here is a possible nondisplaced neck fracture in the third proximal phalanx. There is dorsal soft tis derek swelling of the foot and fourth toe. The joint spaces are normal. IMPRESSION: 1. Acute neck fracture of the fourth proximal phalanx and possible nondisplaced neck fracture of the third proximal phalanx. Reviewed, dictated and finalized at location A. [employer]
[2022-09-22 14:56] VITALS: BP 136/76; PULSE 79; RESP 20; TEMP 36.6; O2SAT 98
[2022-09-22] MEDS: IBUPROFEN 400 MG TABLET 800 MG (16:08)
--- NOTE | 2022-09-22 16:10 | ED.LOWEXIN ---
HPI - Extremity Injury (Lower) General Chief Complaint: Extremity Injury, Lower Stated Complaint: right foot/toe injury Time Seen by Provider: 09/22/22 14:56 Source: patient and RN notes reviewed Mode of arrival: ambulatory Limitations: no limitations History of Present Illness complaint: foot injury Injury: Right: foot Type of Injury: blunt Place: home Severity: mild Severity scale (1-10): 4 Relieving factors: immobilization Exacerbating factors: weight bearing and movement Context: direct blow Associated symptoms: snap/pop sensation Other symptoms: none Related Data Home Medications Medication Instructions Recorded Confirmed escitalopram oxalate 10 mg tablet 10 mg PO DAILY 06/19/22 09/22/22 naproxen 500 mg tablet 500 mg PO DAILY 06/19/22 09/22/22 Allergies Allergy/AdvReac Type Severity Reaction Status Date / Time latex Allergy Intermediate Rash Verified 10/28/16 14:44 tramadol Allergy Intermediate Dizziness Verified 10/28/16 14:44 hydrocodone AdvReac Mild Stopped Verified 06/19/22 15:36 Breathing Review of Systems Review of Systems: All systems reviewed & are unremarkable except as noted in HPI and below Constitutional: Constitutional: Reports no additional constitutional complaints Eyes: Eyes: Reports no additional eye complaints ENT: Reports system reviewed and no additional complaints, except as documented Cardiovascular: Cardiovascular: Reports no additional cardiovascular complaints Respiratory: Respiratory: Reports no additional respiratory complaints Gastrointestinal: Gastrointestinal: Reports no additional gastrointestinal complaints Genitourinary: Genitourinary: Reports no additional female genitourinary complaints Musculoskeletal: Musculoskeletal: Reports no additional musculoskeletal complaints Integumentary/Breasts: Skin/Breast: Reports system reviewed and no additional complaints, except as docu Neurologic: Reports system reviewed and no additional complaints, except as documented Psychiatric: Psychiatric: Reports no additional psychiatric complaints Endocrine: Endocrine: Reports no additional endocrine complaints Hematologic/Lymphatic: Hematologic/Lymphatic: Reports no additional hematologic/lymphatic complaints Allergic/Immunologic: Allergic/Immunologic: Reports no additional allergic/immunologic complaints [facility] Past Medical History Medical History Anxiety Toe fracture Surgical History Surgical History History of myringotomy Previous section Social History Social History Smoking status: Current every day smoker Alcohol intake: current Alcohol use details: Occasional Substance use: never Exam Const: General: healthy appearing, no acute distress and well nourished Nutritional Appearance: well nourished Orientation/consciousness: patient oriented x3 Limitations: no limitations HENMT: Head: normal to inspection Ears: external ears normal, TM's normal bilaterally and EAC's normal Face/Nose/Sinus: Normal external nose present, Normal nares present, normal facial exam and sinuses nontender Face and sinus: normal facial exam and sinuses nontender Mouth: Yes Normal oral and palatal mucosa present and Yes moist mucous membranes Teeth and gingiva: dentition normal Throat: posterior oropharynx normal Eyes: Conjunctivae: conjunctivae normal Pupils: Equal, round and reactive pupils present EOM: EOMs intact bilaterally Neck: Neck: normal visual inspection, no lymphadenopathy and no meningeal signs Chest: Chest palpation & inspection: normal inspection of the chest Resp: Effort & Inspection: normal respiratory effort Auscultation: clear to auscultation bilaterally Cardio: Rate: regular rate Rhythm: regular rhythm GI: GI Palp: Yes Soft to palpation and No Tenderness to palpatio
[2022-09-22 16:14] VITALS: BP 136/76; PULSE 84; RESP 20; TEMP 36.6; O2SAT 97
== END 2022-09-22 16:29 | disposition home or self-care (01) ==
PROVIDERS: Emergency Provider Emergency Medicine; PCP Family Medicine
DX: S92.514A Nondisplaced fracture of proximal phalanx of right lesser toe(s), initial encounter for closed fracture (principal)
CPT/HCPCS: 73630; 99284; A9270

== ENCOUNTER 2022-12-02 09:08 | Outpatient (CLI) | payer OTHER, SELFPAY ==
[2022-12-02 09:29] LABS: Add Urine Microscopic? YES; Appearance Urine Clear (Clear); Basophils Absolute Auto 0.05 K/mm3 (0.00-0.10); Basophils Percent Auto 0.6 % (0.0-1.0); Bilirubin Urine Negative (Negative); Blood Urine 3+ (Negative); Color Urine Light Yellow (Yellow); Eosinophils Absolute Auto 0.15 K/mm3 (0.02-0.50); Eosinophils Percent Auto 1.9 % (1.0-6.0); Glucose Urine UA Negative (Negative); Hematocrit 44.1 % (35.0-49.0); Hemoglobin 14.5 g/dL (12.0-15.0); Immature Granulocyte Absolute 0.03 K/mm3 (0.00-0.00); Immature Granulocyte Percent A 0.4 % (0.0-0.0); Ketones Urine Negative (Negative); Leukocyte Esterase Ur Negative LEU/UL (Negative); Mean Corpuscular HGB Conc 32.9 g/dL (32.0-36.0); Mean Corpuscular Hemoglobin 28.4 pg (27.0-31.0); Mean Corpuscular Volume 86.3 fL (78.0-102.0); Mean Platelet Volume 10.4 fl (9.2-11.8); Monocytes Absolute Auto 0.49 K/mm3 (0.10-0.90); Monocytes Percent Auto 6.3 % (2.0-11.0); Neutrophils Absolute Auto 5.3 K/mm3 (1.7-7.2); Neutrophils Percent Auto 67.8 % (50.0-70.0); Nitrate Urine Negative (Negative); Platelet Count Result 272 K/mm3 (150-420); Protein Urine Negative (Negative); Red Blood Count 5.11 M/mm3 (4.20-5.40); Red Cell Distribution Width 12.5 % (11.6-14.4); Specific Grav Ur 1.025 (1.010-1.020); Urobilinogen Urine 0.2 mg/dL (0.2-1.0); White Blood Count 7.8 K/mm3 (4.8-10.8)
[2022-12-02 09:41] LABS: Bacteria Urine 3+ /hpf; Squamous Epithelial Cell Urine Moderate /hpf (Few); WBC Urine None seen /hpf (0-3)
[2022-12-02 09:58] LABS: Hemoglobin A1C 5.1 % (<5.7)
[2022-12-02 10:07] LABS: Alanine Aminotransferase 23 U/L (14-59); Albumin Level 3.5 g/dL (3.4-5.0); Alkaline Phosphatase 28 U/L (46-116); Anion Gap 5 mmol/L (8-16); Aspartate Amino Transferase 14 U/L (15-37); Bilirubin,Total 0.3 mg/dL (0.00-1.00); Blood Urea Nitrogen 18 mg/dL (7-18); Calcium 8.5 mg/dL (8.5-10.1); Carbon Dioxide 30 mmol/L (21-32); Chloride 105 mmol/L (98-108); Cholesterol 252 mg/dL (0-200); Estimated Glomerular Filt Rate > 60; Free T4 Free Thyroxine 0.84 ng/dL (0.76-1.46); Glucose 94 mg/dL (70-99); HDL Direct 33 mg/dL (40-60); LDL Cholesterol Calculated 181 mg/dL (<130); Osmolality Calculated 291 mOsm/kg (285-295); Potassium 4.3 mmol/L (3.5-5.1); Sodium 140 mmol/L (136-145); Total Protein 7.2 g/dL (6.4-8.2); Triglycerides 192 mg/dL (0-150)
[2022-12-07 18:19] LABS: NIL 0.04 IU/mL; Quantiferon TB Plus, 1T NEGATIVE (NEGATIVE); TB1-NIL 0.11 IU/mL
== END 2022-12-02 09:09 | disposition home or self-care (01) ==
LOC: CHSLAB 09:11
PROVIDERS: PCP Family Medicine; Visit Provider Nurse Practitioner Family
DX: Z11.1 Encounter for screening for respiratory tuberculosis (principal); F43.22 Adjustment disorder with anxiety; E66.01 Morbid (severe) obesity due to excess calories; G43.109 Migraine with aura, not intractable, without status migrainosus; R73.9 Hyperglycemia, unspecified
CPT/HCPCS: 36415; 80053; 80061; 81001; 83036; 84439; 84443; 85025; 86480

== ENCOUNTER 2023-01-10 17:27 | Outpatient (CLI) | payer OTHER, SELFPAY ==
--- NOTE | ~2023-01-10 | XR_ITS ---
EXAM: XR knee RT 3V DATE: 01/10/2023 18:14 HISTORY: RIGHT SUPEROLATERAL KNEE PAIN SEVERAL DAYS. NKI. . COMPARISON: 07/25/2007, images only. FINDINGS: Normal mineralization. No fracture or dislocation. No lytic or blastic lesion. Small volum e joint fluid. Mild tricompartmental osteophytosis. No erosion or periosteal change. Soft tissues wit hin normal limits. IMPRESSION: Mild tricompartmental right knee osteoarthritis. Small right knee joint effusion. Reviewed, dictated and finalized at location K. IMPRESSION: Mild tricompartmental right knee osteoarthritis. Small right knee j oint effusion.
== END 2023-01-10 17:28 | disposition home or self-care (01) ==
LOC: CHSIMG 17:29
PROVIDERS: PCP Family Medicine; Visit Provider Nurse Practitioner Family
DX: M25.561 Pain in right knee (principal); M17.11 Unilateral primary osteoarthritis, right knee; M25.461 Effusion, right knee
CPT/HCPCS: 73562

== ENCOUNTER 2023-01-29 08:53 | Emergency (ER) | payer OTHER, SELFPAY ==
[2023-01-29 08:58] VITALS: BP 142/89; PULSE 101; RESP 18; TEMP 36.9; O2SAT 98
[2023-01-29 09:03] VITALS: BP 142/89; PULSE 101; RESP 18; TEMP 36.9; O2SAT 98
--- NOTE | 2023-01-29 09:29 | ED.GENADULT ---
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 She has previously been on Bactrim. On Mirena, control Five days ago, the patient went to primary care provider due to swelling and pain in the pilonidal region of her lower back. She was prescribed Augmentin and metronidazole. Unfortunately, this does not use the cover MRSA. The patient's pilonidal cyst abscess has increased in size since that time and is becoming more tender. No drainage. She has tried topical remedies without success. No fevers. Did have 2 episodes of emesis yesterday. Has nausea today and yesterday and the day before. No other complaints. No abdominal pain. No previous history of pilonidal abscess. Related Data Home Medications Medication Instructions Recorded Confirmed buspirone 10 mg tablet 10 mg PO BID 01/29/23 01/29/23 escitalopram oxalate 20 mg tablet 20 mg PO DAILY 01/29/23 01/29/23 Allergies Allergy/AdvReac Type Severity Reaction Status Date / Time latex Allergy Intermediate Rash Verified 01/29/23 09:12 tramadol Allergy Intermediate Dizziness Verified 01/29/23 09:12 hydrocodone AdvReac Mild Anaphylaxis Verified 01/29/23 09:12 Review of Systems Review of Systems: All systems reviewed & are unremarkable except as noted in HPI and below Constitutional: Constitutional: Reports as per HPI, Reports no additional constitutional complaints, Denies chills, Denies excessive sweating, Denies fatigue, Denies fever(s), Denies headache(s) and Denies weakness Eyes: Eyes: Reports as per HPI, Reports no additional eye complaints, Denies change in vision and Denies photophobia ENT: Reports system reviewed and no additional complaints, except as documented, Reports as per HPI, Denies dysphagia, Denies vertigo, Denies dizziness, Denies headache(s), Denies lip swelling, Denies nasal congestion, Denies sore throat, Denies throat swelling and Denies tongue swelling Cardiovascular: Cardiovascular: Reports as per HPI, Reports no additional cardiovascular complaints, Denies chest pain, Denies syncope, Denies rapid heart rate and Denies dyspnea Respiratory: Respiratory: Reports as per HPI, Reports no additional respiratory complaints, Denies chest congestion, Denies cough, Denies dyspnea and Denies wheezing Gastrointestinal: Gastrointestinal: Reports as per HPI, Reports no additional gastrointestinal complaints, Denies abdominal pain, Denies constipation, Denies dysphagia, Denies diarrhea, Denies nausea and Denies vomiting Genitourinary: Genitourinary: Reports as per HPI, Denies hematuria, Denies urinary frequency, Denies dysuria, Denies urinary incontinence and Denies urinary urgency Musculoskeletal: Musculoskeletal: Reports no additional musculoskeletal complaints, Denies back pain, Denies myalgias, Denies arthralgias, Denies joint swelling and Denies numbness Integumentary/Breasts: Skin/Breast: Reports system reviewed and no additional complaints, except as docu, Reports swelling ( in the pilonidal region, tender to touch), Denies pruritus, Denies erythema, Denies rash and Denies skin ulcer Neurologic: Reports system reviewed and no additional complaints, except as documented, Reports as per HPI, Denies confusion, Denies vertigo, Denies dizziness, Denies syncope, Denies headache(s), Denies focal weakness, Denies numbness and Denies weakness Psychiatric: Psychiatric: Reports as per HPI, Denies anxiety, Denies confusion, Denies depression, Denies homicidal ideation and Denies suicidal ideation Endocrine: Endocrine: Reports no additional endocrine complaints, Denies excessive sweating, Denies fatigue, Denies polydipsia and Denies polyuria Hematologic/Lymphatic: Hematologic/Lymph
--- NOTE | 2023-01-29 09:35 | PC.NURSE ---
consent for I&D of pilonidal cyst signed.
[2023-01-29] MEDS: ACETAMINOPHEN 500 MG TABLET 1000 MG PO (10:18)
[2023-01-29] MEDS: IBUPROFEN 400 MG TABLET 800 MG PO (10:19)
[2023-01-29] MEDS: SULFAMETHOXAZOLE/TRIMETHOPRIM 800/160 MG DS TABLET 1 TAB PO (10:19)
[2023-01-29 10:36] VITALS: BP 136/85; PULSE 95; RESP 16; TEMP 36.8; O2SAT 99
--- NOTE | 2023-02-01 13:43 | PC.NURSE ---
final culture report reviewed from pilonidal cyst wound. no growth . no change in plan of care
== END 2023-01-29 10:36 | disposition home or self-care (01) ==
PROVIDERS: Emergency Provider Emergency Medicine; PCP Family Medicine
DX: L05.01 Pilonidal cyst with abscess (principal); F17.200 Nicotine dependence, unspecified, uncomplicated; Z86.14 Personal history of Methicillin resistant Staphylococcus aureus infection
CPT/HCPCS: 10061; 87070; 87205; 99283; A9270

== ENCOUNTER 2023-01-30 21:18 | Emergency (ER) | payer OTHER, SELFPAY ==
[2023-01-30 21:21] VITALS: BP 151/83; PULSE 98; RESP 18; TEMP 36.7; O2SAT 99
--- NOTE | 2023-01-30 21:21 | ED.GENADULT ---
HPI - General Adult General Chief complaint: Unspecified Stated complaint: Abscess Source: patient Mode of arrival: ambulatory Limitations: no limitations History of Present Illness HPI narrative: 32-year-old female with a history of anxiety, pilonidal disease status post incision and drainage yesterday presents to the ER for -- wound dressing and packing -- pain in incision site. No fever or chills. Onset (ago): day(s) Location: buttocks ( Upper gluteal cleft) Radiation: non-radiation Severity: moderate Quality: aching Pain Consistency: constant Relieving factors: none Exacerbating factors: none Associated symptoms: denies other symptoms Treatments prior to arrival: other ( Bactrim, Augmentin and Flagyl) Related Data Home Medications Medication Instructions Recorded Confirmed buspirone 10 mg tablet 10 mg PO BID 01/29/23 01/29/23 escitalopram oxalate 20 mg tablet 20 mg PO DAILY 01/29/23 01/29/23 Allergies Allergy/AdvReac Type Severity Reaction Status Date / Time latex Allergy Intermediate Rash Verified 01/29/23 09:12 Review of Systems Review of Systems: All systems reviewed & are unremarkable except as noted in HPI and below PMFSH Past Medical History Medical History Anxiety Toe fracture Surgical History Surgical History History of myringotomy Previous section Social History Social History Smoking status: Current every day smoker Alcohol intake: current Alcohol use details: Occasional Substance use: never Exam Const: General: cooperative and comfortable Nutritional Appearance: obese HENMT: Head: normal to inspection, normocephalic and atraumatic Ears: hearing grossly normal bilaterally Face/Nose/Sinus: Normal external nose present and Normal nares present Face and sinus: normal facial exam and sinuses nontender Mouth: Yes Normal oral and palatal mucosa present and Yes moist mucous membranes Eyes: General: appearance normal, both eyes and all related structures Eyelids: eyelids normal Conjunctivae: conjunctivae normal Sclera: sclerae normal Cornea: corneas normal Pupils: Equal, round and reactive pupils present Neck: Neck: normal visual inspection, full ROM, no lymphadenopathy and no meningeal signs Chest: Chest palpation & inspection: normal inspection of the chest Resp: Effort & Inspection: normal respiratory effort and able to speak in complete sentences Auscultation: clear to auscultation bilaterally Cardio: Palpation: normal PMI Rate: regular rate Rhythm: regular rhythm Heart sounds: S1 normal heart sound present and S2 normal heart sound present GI: Inspection: normal to inspection Auscultation: normal bowel sounds : General: Yes no CVA tenderness Back/Spine/Pelvis: Back: no CVA tenderness Back/spine/pelvis image: 1. 2 cm wound on the upper gluteal cleft. Skin: General skin exam: normal color and no rashes or lesions noted Neuro: General: oriented to person, oriented to place, oriented to time and patient oriented x3 Speech: normal speech Extrem: General: normal to inspection, full ROM, capillary refill normal and normal exam except as noted Psych: Appearance: grossly normal Mental Status: mental status grossly normal Course Course Emergency Course: Pilonidal disease-- wound packed with iodoform gauze. Vital Signs Vital signs: Vital Signs Temperature 36.7 C 01/30/23 21:21 Pulse Rate 98 01/30/23 21:21 Respiratory Rate 18 01/30/23 21:21 Blood Pressure 151/83 H 01/30/23 21:21 Pulse Oximetry 99 01/30/23 21:21 Oxygen Delivery Room Air 01/30/23 21:21 Temperature 36.7 C 01/30/23 21:21 Pulse Rate 98 01/30/23 21:21 Respiratory Rate 18 01/30/23 21:21 Blood Pressure 151/83 H 01/30/23 21:21 Pulse Oximetry 99 01/30/23 21:21 Oxygen D
--- NOTE | 2023-01-30 21:34 | PC.NURSE ---
Assisted with pt
[2023-01-30] MEDS: HYDROcodone/acetaminophen (*CRX) 5-325 MG TABLET 1 TAB PO (21:49)
== END 2023-01-30 21:59 | disposition home or self-care (01) ==
PROVIDERS: Emergency Provider Internal Medicine Critical Care Medicine; PCP Family Medicine
DX: L05.01 Pilonidal cyst with abscess (principal); F41.9 Anxiety disorder, unspecified; F17.200 Nicotine dependence, unspecified, uncomplicated
CPT/HCPCS: 10061; 99282; A9270

== ENCOUNTER 2023-03-24 15:18 | Emergency (ER) | payer OTHER, SELFPAY ==
--- NOTE | ~2023-03-24 | XR_ITS ---
XR foot LT 2V DATE: 03/24/2023 16:04 INDICATION: Laceration to bottom of fifth digit. Toe injury. TECHNIQUE: AP and lateral views of left foot and lateral views of the fifth digit COMPARISON: None FINDINGS: There is dorsal dislocation at the proximal interphalangeal joint of the fifth digit, with probable small fracture fragment from the base of the middle phalanx.. Tibiotalar osteoarthritic spurring. Mild osteophyte is at the first metatarsophalangeal joint. Prominent posterior calcaneal enthesopathy. IMPRESSION: Dorsal dislocation/slight fracture at the proximal interphalangeal joint of the fifth dig it Prominent posterior calcaneal enthesopathy Reviewed, dictated and finalized at location A. IMPRESSION: Dorsal dislocation/slight fracture at the proximal interphalangeal joint of the fifth digit Prominent posterior calcaneal enthesopathy
[2023-03-24 15:18] VITALS: BP 126/97; PULSE 89; RESP 16; TEMP 35.8; O2SAT 97
[2023-03-24] MEDS: TETANUS,DIPHTHERIA,AC PERTUSSIS ADULT 0.5 ML (ADACEL) IM (15:48)
[2023-03-24] MEDS: KETOROLAC (*BKC) 60 MG/2 ML VIAL IM (15:49)
[2023-03-24] MEDS: LIDOCAINE HCL 1% LOCAL INJ 10 ML VIAL INFILTRATE (16:36)
--- NOTE | 2023-03-24 17:09 | ED.WOUNDLAC ---
HPI - Wound/Laceration General Chief Complaint: Wound/Laceration Stated Complaint: left foot injury Source: patient and family Mode of arrival: ambulatory Limitations: no limitations History of Present Illness HPI narrative: this is a 32-year-old female that was outdoors in a swimming pool area and cut her foot on a plastic piece of pork equipment causing dorsal flexion of her left 5th toe, with laceration to the underside of the plantar surface and webbing of her 5th toe with dorsal flexion which appears to be a dislocation. Patient is not up-to-date with her tetanus has no numbness or tingling in her toe or foot area. Onset (ago): hour(s) Location: other Extremity Location: Left: foot ( Dislocation and laceration to the plantar surface of her left 5th toe) Place: home Context: accidental Related Data Home Medications Medication Instructions Recorded Confirmed buspirone 10 mg tablet 10 mg PO BID 01/29/23 03/24/23 escitalopram oxalate 20 mg tablet 20 mg PO DAILY 01/29/23 03/24/23 Allergies Allergy/AdvReac Type Severity Reaction Status Date / Time latex Allergy Intermediate Rash Verified 01/29/23 09:12 Review of Systems Review of Systems: All systems reviewed & are unremarkable except as noted in HPI and below PMFSH Past Medical History Medical History Anxiety Toe fracture Surgical History Surgical History History of myringotomy Previous section Social History Social History Smoking status: Current every day smoker Alcohol intake: current Alcohol use details: Occasional Substance use: never Exam Const: General: healthy appearing Nutritional Appearance: well nourished Orientation/consciousness: patient oriented x3 Limitations: no limitations HENMT: Head: normal to inspection Eyes: Conjunctivae: conjunctivae normal Neck: Neck: normal visual inspection GI: GI Palp: Yes Soft to palpation Auscultation: normal bowel sounds Skin: General skin exam: normal color Rashes: no rashes Wounds: wounds noted Other: Laceration to the plantar surface of her 5th left toe Neuro: General: patient oriented x3 Cranial nerves: Yes Nystagmus not present Extrem: General: normal to inspection Psych: Mental Status: mental status grossly normal Course Course Emergency Course: dislocation of her 5th left toe with laceration, dislocation was reduced and does have a subtle fracture on x-ray to the proximal left 5th digit laceration was repaired and patient tolerated procedure well patient was updated with her tetanus. Vital Signs Vital signs: Vital Signs Temperature 35.8 C L 03/24/23 15:18 Pulse Rate 89 03/24/23 15:18 Respiratory Rate 16 03/24/23 15:18 Blood Pressure 126/97 H 03/24/23 15:18 Pulse Oximetry 97 03/24/23 15:18 Oxygen Delivery Room Air 03/24/23 15:18 Temperature 35.8 C L 03/24/23 15:18 Pulse Rate 89 03/24/23 15:18 Respiratory Rate 16 03/24/23 15:18 Blood Pressure 126/97 H 03/24/23 15:18 Pulse Oximetry 97 03/24/23 15:18 Oxygen Delivery Room Air 03/24/23 15:18 Procedures Laceration Laceration 1: Date: 03/24/23 Time: 17:16 Site: lower extremity Side (If applicable): left Size (cm): 2 Description: linear Depth: simple, single layer Local Anesthetic: lidocaine 1% Amount of anesthesia used (mL): 5 Pre-repair: wound explored, irrigated and irrigated extensively ====== Skin Level ====== Skin layer closed with: nylon Size (cm): 4-0 Number of sutures: 4 ====== Subcutaneous Layer ====== ====== Muscle Layer ====== ====== Tendon Layer ====== Critical Care Time Critical Care Time Critical Care Time: No Discharge Plan Discharge Clinical Impression: Kiersten
[2023-03-24] MEDS: NEOMYCIN/POLYMYXIN/BACITRACIN OINTMENT PACKET 1 PACKET TOPICAL (17:10)
[2023-03-24 17:30] VITALS: BP 134/83; PULSE 76; RESP 20; O2SAT 97
== END 2023-03-24 17:40 | disposition home or self-care (01) ==
PROVIDERS: Emergency Provider Emergency Medicine; PCP Family Medicine
DX: S92.512A Displaced fracture of proximal phalanx of left lesser toe(s), initial encounter for closed fracture (principal); S91.115A Laceration without foreign body of left lesser toe(s) without damage to nail, initial encounter; F41.9 Anxiety disorder, unspecified; Z23 Encounter for immunization; F17.200 Nicotine dependence, unspecified, uncomplicated; W26.8XXA Contact with other sharp object(s), not elsewhere classified, initial encounter; Y92.34 Swimming pool (public) as the place of occurrence of the external cause
CPT/HCPCS: 12001; 73620; 90471; 90715; 96372; 99284; J1885

== ENCOUNTER 2023-08-04 10:34 | Outpatient (CLI) | payer OTHER, SELFPAY ==
--- NOTE | ~2023-08-04 | MR_ITS ---
EXAMINATION: MR brain/brain stem wo/w con DATE: 08/04/2023 11:24 INDICATION: Chronic migraine headache. TECHNIQUE: Magnetic resonance imaging (MRI) of the brain and brainstem was performed without and with 20 mL MultiHance intravenous contrast. COMPARISON: Brain MRI 03/04/15 FINDINGS: There is no intracranial hemorrhage, acute infarction, or abnormal intracranial mass lesion . The ventricles are normal in size. The adenoids are enlarged. The orbits are normal. The paranasal sinuses are clear. There is a small left mastoid effusion. IMPRESSION: 1. Normal brain. Reviewed, dictated and finalized at location A. IMPRESSION: 1. Normal brain.
== END 2023-08-04 10:35 | disposition home or self-care (01) ==
LOC: CHSIMG 10:35
PROVIDERS: PCP Family Medicine; Visit Provider Nurse Practitioner Family
DX: G43.709 Chronic migraine without aura, not intractable, without status migrainosus (principal); Z82.49 Family history of ischemic heart disease and other diseases of the circulatory system
CPT/HCPCS: 70553; A9577

== ENCOUNTER 2023-08-27 16:30 | Outpatient (CLI) | payer OTHER, SELFPAY ==
[2023-08-27 16:46] LABS: Basophils Absolute Auto 0.07 K/mm3 (0.00-0.10); Basophils Percent Auto 0.7 % (0.0-1.0); Eosinophils Absolute Auto 0.08 K/mm3 (0.02-0.50); Eosinophils Percent Auto 0.8 % (1.0-6.0); Hematocrit 42.4 % (35.0-49.0); Hemoglobin 13.9 g/dL (12.0-15.0); Immature Granulocyte Absolute 0.04 K/mm3 (0.00-0.00); Immature Granulocyte Percent A 0.4 % (0.0-0.0); Lymphocytes Absolute Auto 2.93 K/mm3 (1.10-4.50); Lymphocytes Percent Auto 29.8 % (18.0-42.0); Mean Corpuscular HGB Conc 32.8 g/dL (32.0-36.0); Mean Corpuscular Hemoglobin 28.7 pg (27.0-31.0); Mean Corpuscular Volume 87.6 fL (78.0-102.0); Mean Platelet Volume 10.6 fl (9.2-11.8); Monocytes Absolute Auto 0.52 K/mm3 (0.10-0.90); Monocytes Percent Auto 5.3 % (2.0-11.0); Neutrophils Absolute Auto 6.2 K/mm3 (1.7-7.2); Platelet Count Result 267 K/mm3 (150-420); Red Blood Count 4.84 M/mm3 (4.20-5.40); Red Cell Distribution Width 12.7 % (11.6-14.4); White Blood Count 9.8 K/mm3 (4.8-10.8)
[2023-08-27 17:22] LABS: Alanine Aminotransferase 37 U/L (14-59); Albumin Level 3.5 g/dL (3.4-5.0); Alkaline Phosphatase 25 U/L (46-116); Amylase 32 U/L (25-115); Anion Gap 8 mmol/L (8-16); Aspartate Amino Transferase 19 U/L (15-37); Bilirubin,Total 0.3 mg/dL (0.00-1.00); Blood Urea Nitrogen 18 mg/dL (7-18); Calcium 9.3 mg/dL (8.5-10.1); Carbon Dioxide 30 mmol/L (21-32); Chloride 104 mmol/L (98-108); Estimated Glomerular Filt Rate > 60; Free T4 Free Thyroxine 0.87 ng/dL (0.76-1.46); Glucose 84 mg/dL (70-99); Lipase 31 U/L (16-77); Osmolality Calculated 294 mOsm/kg (285-295); Potassium 3.7 mmol/L (3.5-5.1); Sodium 142 mmol/L (136-145); Thyroid Stimulating Hormone 1.71 uIU/mL (0.36-3.74); Total Protein 7.1 g/dL (6.4-8.2)
== END 2023-08-27 16:31 | disposition home or self-care (01) ==
LOC: CHSLAB 16:32
PROVIDERS: PCP Family Medicine; Visit Provider Nurse Practitioner Family
DX: R10.2 Pelvic and perineal pain (principal); R10.9 Unspecified abdominal pain
CPT/HCPCS: 36415; 80053; 82150; 83690; 84439; 84443; 85025

== ENCOUNTER 2023-08-31 13:13 | Outpatient (CLI) | payer OTHER, SELFPAY ==
--- NOTE | ~2023-08-31 | US_ITS ---
EXAMINATION: US pelvic complete w TV DATE: 08/31/2023 13:47 INDICATION: Pelvic pain TECHNIQUE: Multiple transabdominal and endovaginal sonographic images of the pelvis were obtained. COMPARISON: 05/25/2021 FINDINGS: The uterus measures 8.4 x 5.3 x 4.3 cm. The endometrial complex measures 7 mm. The IUD is i n expected position. There is a nabothian cyst of the cervix. The ovaries are not visualized however no adnexal abnormality is seen. There is no free fluid in the pelvis. IMPRESSION: 1. No sonographic correlate for the patient's symptoms. Reviewed, dictated and finalized at location B. O [employer]
== END 2023-08-31 13:14 | disposition home or self-care (01) ==
LOC: CHSIMG 13:14
PROVIDERS: PCP Family Medicine; Visit Provider Nurse Practitioner Family
DX: R10.9 Unspecified abdominal pain (principal); R10.2 Pelvic and perineal pain
CPT/HCPCS: 76830; 76856

== ENCOUNTER 2023-10-30 15:07 | Outpatient (CLI) | payer OTHER, SELFPAY ==
[2023-10-30 16:07] LABS: Influenza A QL RT-PCR Negative (Negative); Influenza B QL RT-PCR Negative (Negative); SARS-CoV-2 RNA PCR Negative (Negative)
== END 2023-10-30 15:08 | disposition home or self-care (01) ==
LOC: CHSLAB 15:09
PROVIDERS: PCP Family Medicine; Visit Provider Family Medicine
DX: J06.9 Acute upper respiratory infection, unspecified (principal); Z20.822 Contact with and (suspected) exposure to COVID-19
CPT/HCPCS: 87636

== ENCOUNTER 2023-12-18 14:26 | Outpatient (CLI) | payer OTHER, SELFPAY ==
[2023-12-18 15:23] LABS: Strep Group A RT-PCR NOT DETECTED (Negative)
[2023-12-18 15:26] LABS: SARS-CoV-2 RNA PCR Negative (Negative)
[2023-12-18 15:31] LABS: Influenza A QL RT-PCR Negative (Negative); Influenza B QL RT-PCR Negative (Negative)
== END 2023-12-18 14:27 | disposition home or self-care (01) ==
PROVIDERS: PCP Family Medicine; Visit Provider Family Medicine
DX: J06.9 Acute upper respiratory infection, unspecified (principal)
CPT/HCPCS: 87636; 87651

== ENCOUNTER 2024-01-22 18:16 | Outpatient (CLI) | payer OTHER, SELFPAY ==
[2024-01-25 07:13] LABS: TB Skin Test Erythema 0 mm; TB Skin Test Induration 0 mm (0-10); TB Skin Test Interpretation Negative (Negative); TB Skin Test Site Left Arm
== END 2024-01-22 18:17 | disposition home or self-care (01) ==
PROVIDERS: PCP Family Medicine; Visit Provider Family Medicine
DX: Z11.1 Encounter for screening for respiratory tuberculosis (principal)
CPT/HCPCS: 36415; 86580

== ENCOUNTER 2024-03-24 13:24 | Outpatient (CLI) | payer OTHER, SELFPAY ==
--- NOTE | ~2024-03-24 | XR_ITS ---
EXAMINATION: XR abdomen obstructive series DATE: 03/24/2024 14:24 INDICATION: Abdomen pain for several weeks TECHNIQUE: Supine and upright views of the abdomen. FINDINGS: 09/22/2015 The visualized lung parenchyma is normal.. There is a nonobstructive bowel gas pattern. Gas and stool are seen throughout the colon to the level of the rectum. There is no free air. There is an IUD in the pelvis. There are cholecystectomy clips. IMPRESSION: 1. No acute abdominal abnormality. Reviewed, dictated and finalized at location B.
[2024-03-24 14:09] LABS: Basophils Absolute Auto 0.05 K/mm3 (0.00-0.10); Basophils Percent Auto 0.5 % (0.0-1.0); Eosinophils Absolute Auto 0.05 K/mm3 (0.02-0.50); Eosinophils Percent Auto 0.5 % (1.0-6.0); Hemoglobin 13.9 g/dL (12.0-15.0); Immature Granulocyte Absolute 0.03 K/mm3 (0.00-0.00); Immature Granulocyte Percent A 0.3 % (0.0-0.0); Lymphocytes Percent Auto 19.9 % (18.0-42.0); Mean Corpuscular HGB Conc 31.6 g/dL (32-36); Mean Corpuscular Hemoglobin 27.5 pg (27.0-31.0); Mean Corpuscular Volume 87.1 fL (78.0-102.0); Mean Platelet Volume 10.9 fl (9.2-11.8); Monocytes Absolute Auto 0.48 K/mm3 (0.10-0.90); Monocytes Percent Auto 4.8 % (2.0-11.0); Neutrophils Absolute Auto 7.45 K/mm3 (1.70-7.20); Platelet Count Result 265 K/mm3 (150-420); Red Blood Count 5.05 M/mm3 (4.20-5.40); Red Cell Distribution Width 12.7 % (11.6-14.4); White Blood Count 10.1 K/mm3 (4.8-10.8)
[2024-03-24 14:27] LABS: Alanine Aminotransferase 39 U/L (14-59); Albumin Level 3.9 g/dL (3.4-5.0); Alkaline Phosphatase 19 U/L (46-116); Amylase 33 U/L (25-115); Anion Gap 7 mmol/L (4-12); Aspartate Amino Transferase 25 U/L (15-37); Bilirubin,Total 0.4 mg/dL (0.00-1.00); Blood Urea Nitrogen 13 mg/dL (7-18); Calcium 9.3 mg/dL (8.5-10.1); Carbon Dioxide 31 mmol/L (21-32); Chloride 103 mmol/L (98-108); Estimated Glomerular Filt Rate > 60; Glucose 89 mg/dL (70-99); Lipase 23 U/L (16-77); Osmolality Calculated 291 mOsm/kg (285-295); Sodium 141 mmol/L (136-145); Total Protein 7.6 g/dL (6.4-8.2)
[2024-03-24 22:19] LABS: Add Urine Microscopic? NO; Appearance Urine Clear (Clear); Bilirubin Urine Negative (Negative); Blood Urine Negative (Negative); Color Urine Yellow (Yellow); Glucose Urine UA Negative (Negative); Ketones Urine Negative (Negative); Leukocyte Esterase Ur Negative (Negative); Nitrate Urine Negative (Negative); Pregnancy On Board Control Positive; Protein Urine Negative (Negative); Urine Pregnancy Test Negative; Urobilinogen Urine 0.2 mg/dL (0.2-1.0); pH Urine 6.5 (5.0-8.0)
== END 2024-03-24 13:25 | disposition home or self-care (01) ==
LOC: CHSLAB 13:26
PROVIDERS: PCP Family Medicine; Visit Provider Family Medicine
DX: R10.9 Unspecified abdominal pain (principal)
CPT/HCPCS: 36415; 74019; 80053; 81003; 81025; 82150; 83690; 85025

== ENCOUNTER 2024-07-21 17:21 | Emergency (ER) | payer OTHER, SELFPAY ==
[2024-07-21] VITALS (16 sets, daily range): BP systolic 110–143; BP diastolic 75–98; PULSE 71–90; RESP 11–20; TEMP 36.6–36.7; O2SAT 96–100
--- NOTE | ~2024-07-21 | XR_ITS ---
EXAMINATION: XR chest 1V portable Exam Date/Time: 07/21/2024 17:45 CDT HISTORY: chest pain Comparison: 03/12/2018. RESULT: Lines, tubes, and devices: None. Lungs and pleura: Clear. Cardiomediastinal silhouette: Stable. Other: No acute osseous or upper abdominal finding. IMPRESSION: No acute cardiopulmonary process. Reviewed, dictated and finalized at location K.
--- NOTE | 2024-07-21 17:46 | ECG_ITS ---
Test Date: 2024-07-21 18:13:48 Measurements Intervals [place] Rate: 69 P: -1 OR: 174 QRS: 21 QRSD: 96 T: 17 QT: 389 QTc: 418 Interpretive Statements SINUS RHYTHM BORDERLINE ST-T WAVE ABNORMALITY- INFERIOR LEADS BASELINE ARTIFACT- I, II, III, AVR, AVL, AVF, V2 BORDERLINE ECG No previous ECG available for comparison Electronically Signed On 07-21-2024 20:00:45 CDT by Marc Thomas D.O.
--- NOTE | 2024-07-21 17:49 | ED.GENADULT ---
HPI - General Adult General Chief complaint: Chest Pain Stated complaint: CHEST PAIN Time Seen by Provider: 07/21/24 17:24 History of Present Illness HPI narrative: Jen is a 33F with a PMH of anxiety that presented to the ED with concerns of abdominal pain and chest pain. She first started having abdominal pain several days ago that radiated to her shoulder. It has not been getting any better and now she is nauseated, her ears feel clogged, she has sinus congestion and a cough. She reports that she was also exposed to COVID. Related Data Home Medications Medication Instructions Recorded Confirmed buspirone 10 mg tablet 15 mg PO BID 01/29/23 07/21/24 escitalopram oxalate 20 mg tablet 20 mg PO DAILY 01/29/23 07/21/24 albuterol sulfate 90 mcg/actuation 2 puff inhalation PRN PRN 07/21/24 07/21/24 aerosol inhaler Shortness Of Breath Or Wheezing hydroxyzine pamoate 25 mg capsule 25 mg PO PRN PRN Anxiety 07/21/24 07/21/24 ondansetron HCl 8 mg tablet 8 mg PO PRN PRN Nausea And Vomiting 07/21/24 07/21/24 Allergies Allergy/AdvReac Type Severity Reaction Status Date / Time latex Allergy Intermediate Rash Verified 07/21/24 17:33 acetaminophen [From Vicodin] Allergy Dyspnea / Verified 07/21/24 17:36 SOB hydrocodone [From Vicodin] Allergy Dyspnea / Verified 07/21/24 17:36 SOB Review of Systems Review of Systems: All systems reviewed & are unremarkable except as noted in HPI and below PMFSH Past Medical History Medical History Anxiety Toe fracture Surgical History Surgical History History of myringotomy Previous section Social History Social History Smoking status: Current every day smoker Alcohol intake: current Alcohol use details: Occasional Substance use: never Exam Const: General: cooperative, healthy appearing, comfortable, no acute distress, well developed, alert, awake and Physically active Orientation/consciousness: oriented to person, oriented to place and oriented to time HENMT: Head: normal to inspection, normocephalic and atraumatic Ears: hearing grossly normal bilaterally and external ears normal Face/Nose/Sinus: Normal external nose present Eyes: General: appearance normal, both eyes and all related structures Periorbital: periorbital findings normal Sclera: sclerae normal Pupils: Equal, round and reactive pupils present Neck: Neck: normal visual inspection Chest: Chest palpation & inspection: normal inspection of the chest Resp: Effort & Inspection: normal respiratory effort, able to speak in complete sentences and no respiratory distress Auscultation: clear to auscultation bilaterally Cardio: Jugular venous distension: no JVD Rate: regular rate Rhythm: regular rhythm GI: Inspection: normal to inspection GI Palp: Yes Soft to palpation Auscultation: normal bowel sounds Skin: General skin exam: normal color and no rashes or lesions noted Neuro: General: oriented to person, oriented to place and oriented to time Cranial nerves: Yes Equal, round and reactive pupils present Extrem: General: normal to inspection Psych: Mental Status: mental status grossly normal Affect: normal affect Attitude: cooperative Course Course Emergency Course: Orderd labs, viral testing, and EKG EKG showed sinus rhythm with a rate of 69, no ectopy, no ST elevation/depression CBC, chemistries are largely unremarkable. D-dimer was also wnl. EXAMINATION: XR chest 1V portable Exam Date/Time: 07/21/2024 17:45 CDT HISTORY: chest pain Comparison: 03/12/2018. RESULT: Lines, tubes, and devices: None. Lungs and pleura: Clear. Cardiomediastinal silhouette: Stable. Other: No acute osseous or upper abdominal finding. IMPRESSION: No acute cardiopulmonary process. Given negative troponin and D-dimer PE
[2024-07-21 18:04] LABS: Basophils Absolute Auto 0.04 K/mm3 (0.00-0.10); Basophils Percent Auto 0.4 % (0.0-1.0); Eosinophils Absolute Auto 0.11 K/mm3 (0.02-0.50); Eosinophils Percent Auto 1.2 % (1.0-6.0); Hematocrit 40.4 % (35.0-49.0); Hemoglobin 13.2 g/dL (12.0-15.0); Immature Granulocyte Absolute 0.05 K/mm3 (0.00-0.00); Immature Granulocyte Percent A 0.6 % (0.0-0.0); Lymphocytes Absolute Auto 2.77 K/mm3 (1.10-4.50); Lymphocytes Percent Auto 30.6 % (18.0-42.0); Mean Corpuscular HGB Conc 32.7 g/dL (32-36); Mean Corpuscular Volume 85.6 fL (78.0-102.0); Mean Platelet Volume 10.4 fl (9.2-11.8); Monocytes Absolute Auto 0.56 K/mm3 (0.10-0.90); Monocytes Percent Auto 6.2 % (2.0-11.0); Neutrophils Absolute Auto 5.52 K/mm3 (1.70-7.20); Platelet Count Result 232 K/mm3 (150-420); Red Blood Count 4.72 M/mm3 (4.20-5.40); Red Cell Distribution Width 13.2 % (11.6-14.4); White Blood Count 9.1 K/mm3 (4.8-10.8)
[2024-07-21 18:17] LABS: INR 0.9; Prothrombin Time 10.3 Seconds (9.50-12.1)
--- NOTE | 2024-07-21 18:23 | PC.NURSE ---
PT IS AWAITING RESULTS AT THIS TIME. SON AT BEDSIDE. NAD NOTED. PT DENIES ANY NEEDS OR COMPLAINTS. WILL CONTINUE TO MONITOR.
[2024-07-21 18:26] LABS: Alanine Aminotransferase 21 U/L (14-59); Albumin Level 3.4 g/dL (3.4-5.0); Alkaline Phosphatase 22 U/L (46-116); Anion Gap 5 mmol/L (4-12); Aspartate Amino Transferase 17 U/L (15-37); Bilirubin,Total 0.2 mg/dL (0.00-1.00); Blood Urea Nitrogen 16 mg/dL (7-18); Calcium 8.7 mg/dL (8.5-10.1); Carbon Dioxide 31 mmol/L (21-32); Chloride 103 mmol/L (98-108); Estimated Glomerular Filt Rate > 60; Glucose 89 mg/dL (70-99); Lipase 34 U/L (16-77); Magnesium 1.9 mg/dL (1.8-2.4); NT Pro B Type Natriuretic Pept 70 pg/mL (0-125); Osmolality Calculated 288 mOsm/kg (285-295); Potassium 3.6 mmol/L (3.5-5.1); Sodium 139 mmol/L (136-145); Total Protein 7.2 g/dL (6.4-8.2)
[2024-07-21 18:27] LABS: CRP < 0.5 mg/dL (0.0-0.9); Troponin I < 4.0 ng/L (0.00-60.4)
[2024-07-21 18:29] LABS: Lactic Acid Reflex 0.7 mmol/L (0.4-2.0)
--- NOTE | 2024-07-21 18:58 | PC.NURSE ---
PT IS PLAYING A GAME ON PHONE AND WATCHING TV WITH SON AT THIS TIME. PT DENIES ANY NEEDS OR COMPLAINTS. NAD NOTED. VSS PER MONITOR. WILL CONTINUE TO MONITOR. PT IS AWAITING RESULTS.
[2024-07-21 19:38] LABS: SARS-CoV-2 RNA PCR Negative (Negative)
[2024-07-21 19:45] LABS: D Dimer 0.38 mg/L (0.19-0.50)
[2024-07-21 19:46] LABS: Influenza A QL RT-PCR Negative (Negative); Influenza B QL RT-PCR Negative (Negative); RSV RNA, RT-PCR Negative (Negative)
--- NOTE | 2024-07-21 20:05 | PC.NURSE ---
Labs all back, ERP Dr Douglas in to speak w/ pt. POC discussed for d/c home. Pt reports feeling better.
== END 2024-07-21 20:07 | disposition home or self-care (01) ==
PROVIDERS: Emergency Provider Family Medicine; PCP Family Medicine
DX: R07.9 Chest pain, unspecified (principal); B34.9 Viral infection, unspecified; F17.210 Nicotine dependence, cigarettes, uncomplicated; Z79.899 Other long term (current) drug therapy; Z20.822 Contact with and (suspected) exposure to COVID-19
CPT/HCPCS: 36415; 71045; 80053; 83605; 83690; 83735; 83880; 84484; 85025; 85380; 85610; 86140; 87637; 93005; 99284

== ENCOUNTER 2024-12-23 13:03 | Emergency (ER) | payer MEDICAID, SELFPAY ==
[2024-12-23 13:05] VITALS: BP 146/89; PULSE 76; RESP 16; TEMP 36.9; O2SAT 99
--- NOTE | 2024-12-23 13:07 | ED.BACK ---
HPI - Back Pain/Injury General Chief Complaint: Back Pain/Injury Stated Complaint: back pain Time Seen by Provider: 12/23/24 13:07 Source: patient Mode of arrival: ambulatory Limitations: no limitations History of Present Illness HPI Narrative: Patient is a 34-year-old female with right lower back pain that radiates to her buttocks on the right. 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 No major trauma to the lower back. No shooting pains down the leg. She does have sharp shooting pain into the right buttocks. MD elicited complaint: back pain and back injury Pertinent past history: other ( None) Onset (ago): day(s) ( 3) Timing: constant Severity: moderate Pain scale (0-10): 5 Similar Symptoms Previously: No Quality: burning and sharp Location: lumbar spine Radiation: buttocks ( right) Exacerbating factors: movement Relieving factors: immobilization Context: while lifting, turning/twisting and bending Associated symptoms: denies other symptoms Treatments prior to arrival: NSAIDS and acetaminophen Work related injury: Yes Related Data Home Medications ?Medication ?Instructions ?Recorded ?Confirmed ?Last Taken ?Type buspirone 10 mg tablet 15 mg PO BID 01/29/23 07/21/24 Unknown History escitalopram oxalate 20 mg tablet 20 mg PO DAILY 01/29/23 07/21/24 Unknown History albuterol sulfate 90 mcg/actuation 2 puff inhalation PRN PRN 07/21/24 07/21/24 Unknown History aerosol inhaler Shortness Of Breath Or Wheezing hydroxyzine pamoate 25 mg capsule 25 mg PO PRN PRN Anxiety 07/21/24 07/21/24 Unknown History ondansetron HCl 8 mg tablet 8 mg PO PRN PRN Nausea And Vomiting 07/21/24 07/21/24 Unknown History Allergies Allergy/AdvReac Type Severity Reaction Status Date / Time latex Allergy Intermediate Rash Verified 12/23/24 13:05 acetaminophen (From Vicodin) Allergy Dyspnea / Verified 12/23/24 13:05 SOB hydrocodone (From Vicodin) Allergy Dyspnea / Verified 12/23/24 13:05 SOB Review of Systems Review of Systems: All systems reviewed & are unremarkable except as noted in HPI and below Constitutional: Constitutional: Reports no additional constitutional complaints Eyes: Eyes: Reports no additional eye complaints ENT: Reports system reviewed and no additional complaints, except as documented Cardiovascular: Cardiovascular: Reports no additional cardiovascular complaints Respiratory: Respiratory: Reports no additional respiratory complaints Gastrointestinal: Gastrointestinal: Reports no additional gastrointestinal complaints Genitourinary: Genitourinary: Reports no additional female genitourinary complaints Musculoskeletal: Musculoskeletal: Reports no additional musculoskeletal complaints Integumentary/Breasts: Skin/Breast: Reports system reviewed and no additional complaints, except as docu Neurologic: Reports system reviewed and no additional complaints, except as documented Psychiatric: Psychiatric: Reports no additional psychiatric complaints Endocrine: Endocrine: Reports no additional endocrine complaints Hematologic/Lymphatic: Hematologic/Lymphatic: Reports no additional hematologic/lymphatic complaints Allergic/Immunologic: Allergic/Immunologic: Reports no additional allergic/immunologic complaints PMFSH Past Medical History Medical History Toe fracture Anxiety Surgical History Surgical History Previous section History of myringotomy Social History Social History Smoking status: Current every day smoker Alcohol intake: current Alcohol use details: Occasional Substance use: never Exam Const: General: healthy appearing Nutritional Appearance: well nourished Orientation/consciousness: patient oriented x3 HENMT: Head: normal to inspection Ears: external ears normal Face/Nose/Sinus: Normal external nose present Eyes: Conjunctivae: conjunctivae normal Pupils: Equal, round and reactive pupils present EOM: EOMs intact bilaterally Neck: Neck: normal visual inspection Chest: Chest palpation & inspection: normal inspection of the chest Resp: Effort & Inspection: normal respiratory effort and not labored Auscultation: clear to auscultation bilaterally and no crackles Cardio: Rate: regular rate Rhythm: regular rhythm Heart sounds: no murmurs GI: Inspection: non-distended GI Palp: Yes Soft to palpation and No Tenderness to palpation present (GI) Auscultation: normal bowel sounds : General: Yes bladder normal to palpation Back/Spine/Pelvis: Back: no CVA tenderness Other: tender midline lumbar spine with radiation to the right buttocks Skin: General skin exam: normal color Rashes: no rashes Wounds: no wounds Neuro: General: patient oriented x3 Cranial nerves: Yes Nystagmus not present Speech: normal speech Extrem: General: normal to inspection Psych: Mental Status: mental status grossly normal Affect: normal affect Attitude: cooperative Course Vital Signs Vital signs: Vital Signs Temperature 36.9 C 12/23/24 13:05 Pulse Rate 76 12/23/24 13:05 Respiratory Rate 16 12/23/24 13:05 Blood Pressure 146/89 H 12/23/24 13:05 Pulse Oximetry 99 12/23/24 13:05 Oxygen Delivery Room Air 12/23/24 13:05 Temperature 36.9 C 12/23/24 13:05 Pulse Rate 76 12/23/24 13:05 Respiratory Rate 16 12/23/24 13:05 Blood Pressure 146/89 H 12/23/24 13:05 Pulse Oximetry 99 12/23/24 13:05 Oxygen Delivery Room Air 12/23/24 13:05 MDM - Back Pain/Injury MDM Narrative Medical decision making narrative: patient is a 34-year-old female with right lower back pain into the right buttocks. She did not have major trauma so we will not do an x-ray at this time. We will treat accordingly with medication. Discharge Plan Discharge Clinical Impression: Piriformis syndrome Qualifiers: Laterality: right Qualified Code(s): G57.01 - Lesion of sciatic nerve, right lower limb Lumbago Qualifiers: Chronicity: acute Back pain laterality: right Sciatica presence: with sciatica Sciatica laterality: sciatica of right side Qualified Code(s): M54.41 - Lumbago with sciatica, right side Patient Disposition: Home, Self-Care Condition: Stable Instructions: Acute Low Back Pain (ED), Piriformis Syndrome (ED) Patient Language: Hong Konger Prescriptions: New methylprednisolone [Medrol (Iker)] 4 mg tablets,dose pack See Rx Instructions .ROUTE .COMPLEX Qty: 21 0RF Rx Instructions: orally per package directions orphenadrine citrate 100 mg tablet extended release 100 mg PO BID PRN (Reason: pain) Qty: 20 0RF No Action buspirone 10 mg tablet 15 mg PO BID escitalopram oxalate 20 mg tablet 20 mg PO DAILY ondansetron HCl 8 mg tablet 8 mg PO PRN PRN (Reason: Nausea And Vomiting) albuterol sulfate 90 mcg/actuation HFA aerosol inhaler 2 puff INHALATION PRN PRN (Reason: Shortness Of Breath Or Wheezing) hydroxyzine pamoate 25 mg capsule 25 mg PO PRN PRN (Reason: Anxiety) Follow-up/Referrals: Jae Ornelas MD [Primary Care Provider] - Time of Disposition: 13:14
[2024-12-23] MEDS: predniSONE 20 MG TABLET 60 MG PO (13:19)
[2024-12-23] MEDS: ORPHENADRINE CITRATE 30 MG/ML 2 ML VIAL 60 MG IM (13:20)
[2024-12-23] MEDS: KETOROLAC (*BKC) 60 MG/2 ML VIAL IM (13:21)
== END 2024-12-23 13:36 | disposition home or self-care (01) ==
LOC: CHSED 13:19
PROVIDERS: Emergency Provider Emergency Medicine; PCP Family Medicine
DX: G57.01 Lesion of sciatic nerve, right lower limb (principal); M54.41 Lumbago with sciatica, right side; F17.200 Nicotine dependence, unspecified, uncomplicated
CPT/HCPCS: 96372; 99284; J1885; J2360; J7512

== ENCOUNTER 2025-01-08 08:20 | Outpatient (CLI) | payer MEDICAID, SELFPAY ==
--- NOTE | ~2025-01-08 | MR_ITS ---
MRA HEAD History: Migraines Technique: 3D time of flight MRA of the head is performed. Findings: The right and left distal vertebral arteries and the basilar and posterior cerebral arterie s are normal. Right and left distal internal carotid arteries and anterior and middle cerebral arteri es are normal. There is no aneurysm, stenosis, or occlusion. Impression: No occlusion, stenosis, or aneurysm. Reviewed, dictated and finalized at location . Impression: No occlusion, stenosis, or aneurysm.
--- NOTE | ~2025-01-08 | MR_ITS ---
MRI of the lumbar spine Clinical History: Back pain Technique: Axial T2-weighted images, and sagittal T1-weighted, T2-weighted, and T2 fat-sat images wer e acquired. Findings: There is no fracture or sublocation lumbar spine. Vertebral bodies maintain normal height a nd alignment. No bone marrow signal abnormality seen. At L1-L2, L2-L3, L3-L4, intervertebral discs maintain normal signal and position. No disc bulge or he rniation at these levels. There is moderate facet hypertrophy results. No spinal canal stenosis or ne ural foraminal narrowing at these levels. At L4-L5, there is minimal disc desiccation. There is moderate to advanced facet arthropathy. There i s minimal central canal stenosis. Neural foramina are preserved. At L5-S1, there is mild degenerative disc narrowing. There is broad-based right paracentral to right foraminal disc protrusion with severe right neural foraminal narrowing. There is minimal left neural foraminal narrowing. No pola central canal stenosis. Paravertebral soft tissues are unremarkable. Impression: Broad-based right paracentral to right foraminal disc protrusion at L5-S1 with severe right neural fo raminal narrowing. Additional mild degenerative changes in the remainder of the lumbar spine, as above. Reviewed, dictated and finalized at location . Impression: Broad-based right paracentral to right foraminal disc protrusion at L5-S1 with severe right neural foraminal narrowing. Additional mild degenerative changes in the remainder of the lumbar spine, as a jake.
--- OUTSIDE RECORDS SUMMARY | 2025-01-08 08:25 | XMS_ITS ---
Care Plan - [facility] Created on: January 08, 2025 REINIER STEPHENS : 1990 Sex: Female Author Organization [facility] Address [address] [place] [address] Phone Care Team Providers Care [facility] Manager Name Role Phone Unavailable Unavailable Unavailable
--- OUTSIDE RECORDS SUMMARY | 2025-01-08 08:25 | XMS_ITS | Clinical Summary ---
Author Organization 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 Ornelas - The Chief Complaint is: Mid to low back pain, down into the legs. Physical therapy- didn't help. Pain Management- never been, no injections Plan of Treatment Pending Tests Order Diagnosis Results Due Ordering Provider Therapy - Physical Therapy Physical Therapy Other intervertebral disc degeneration, lumbar region 08/01/18 KRYS JOSUE ANP- Last Documented On 8 11:51AM ; [facility] Assessments Includes: Assessments from this encounter Findings - Sacroiliitis [M46.1 - Sacroiliitis, not elsewhere classified] - Last Documented On 08/07/2018 1:34PM ; [facility] - Lumbar disc degeneration [M51.36 - Other intervertebral disc degeneration, lumbar region] - Last Documented On 08/07/2018 1:34PM ; [facility] - Myalgia [M79.10 - ] - Last Documented On 08/07/2018 1:34PM ; [facility] Medical Equipment - Implanted Devices Includes: Current Devices No Medical Equipment Recorded Medications Includes: Medications discussed during this encounter and other current Medications Current Medications (continue as prescribed) Gabapentin 300MG Oral Capsule 08/01/2018 Provider: Diagnosis: twice daily Last Documented On 8 10:09AM By NERI MULLINS ; [facility] TiZANidine HCl 2MG Oral Tablet 08/01/2018 Provider: Diagnosis: 1 tab TID Last Documented On 8 10:10AM By NERI MULLINS ; [facility] Medications Administered Includes: Administered Medications from this encounter No Administered Medications Recorded Vital Signs Includes: Vital Signs from this encounter Vital Name 08/01/2018 10:10A Blood Pressure Sitting L 118/80 BP Cuff Size Large Pulse Rate-Sitting (bpm) 74 Pulse Rhythm Regular Respiration Rate (breaths/min) 16 Height (in) 64 Weight (lb) 263 Body Mass Index (kg/m2) 45.1 Body Surface Area (m2) 2.2 Pain Level 6 Last Documented: On 08/01/2018 10:11A M ; [facility] Results Includes: Results discussed during this encounter No Results Recorded For Specified Dates History of Present Illness Includes: History of Present Illness from this encounter TOÑO STEPHENS is a 27 year old female. Patient is referred for low back pain. She describes mid and low back pain worse the last couple of months. She's using NSAIDS with mild benefit. MRI shows DDD lumbar spine. - Medication list reviewed - Prescription Drug Monitoring Program website checked. - Last dose of medication? none Social History Description Last Updated Cigarette smoking 1/2 pack daily 018 Last Documented On 8 1:34PM ; [facility] No consumption of alcohol 08/01/2018 Last Documented On 8 1:34PM ; [facility] Not using drugs 08/01/2018 Last Documented On 8 1:34PM ; 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 Single 08/01/2018 Last Documented On 8 1:34PM ; [facility] Smoking status : Current everyday smoker 08/01/2018 Last Documented On 8 1:34PM ; [facility] Procedures and Surgical History Includes: Procedures from this encounter Procedures Code Diagnosis Performing Provider Service L ocation Service Date education and instructions provided Last Documented On 8 10:55AM ; [facility] Medical History Includes: Medical History addressed during this encounter Description Last Updated Previously 1 time(s) 08/01/2018 Last Documented On 8 1:34PM ; [facility] Born by section 201208/01/2018 Last Documented On 8 1:34PM ; [facility] Surgery removal of gallbladder 8 Last Documented On 8 1:34PM ; [facility] Family History Includes: Family History addressed during this encounter Description Last Updated Family history of diabetes mellitus 07/22 Last Documented On 8 1:34PM ; [facility] Review of Systems Includes: Review of Systems from this encounter Systemic: No fever, no chills, and no recent weight change. Head: Headache chronic/recurring. Cardiovascular: No chest pain or discomfort. Cold hands or feet. Pulmonary: No dyspnea. Gastrointestinal: No nausea and no vomiting. Genitourinary: No dysuria. Hematologic: No tendency for easy bruising. Musculoskeletal: Lower back pain, muscle aches, and pain localized to one or more joints. Neurological: No dizziness, no vertigo, no motor disturbances, and no sensory disturbances. Numbness. Psychological: No anxiety, no depression, and no sleep apnea. Skin: No rash. Mental Status Includes: Mental Status from this encounter Description Oriented to time, place, and person No anxiety Functional Status Includes: Functional Status from this encounter No Functional Status Recorded Physical Exam Includes: Physical Exam from this encounter Allergies Includes: Active Allergies Substance Type Reaction Onset Date Resolved Date Statu s Vicodin Allergy respiratory distress 08/01/2018 Active Last Documented On 8 10:09AM ; [facility] Latex Allergy 08/01/2018 Active Last Documented On 8 10:09AM ; [facility] Encounters Encounter Provider Location Date Check-In Time Check-Out Time Diagnosis PAIN MANAGEMENT NEW CONSULT KRYS JOSUE ANP-[facility]- 08/01/20 18 10:15AM 11:02AM Sacroiliitis,My algia,Intervert ebral Disc Degeneration - Lumbar Clinical Notes Includes: Clinical Notes from this encounter No Clinical Notes Recorded
--- OUTSIDE RECORDS SUMMARY | 2025-01-08 08:25 | XMS_ITS ---
Author Organization [facility] Address [address] [address] Phone Care Team Providers Care Salt Cutter Name Role Phone Unavailable Unavailable Unavailable Plan of Treatment No Plan of Treatment Recorded Assessments Includes: Assessments for all patient encounters Findings Encounter Date Lumbar disc degeneration PAIN MANAGEMENT NEW CONSULT with KRYS JOSUE [facility] 08/01/2018 Last Documented On 8 1:34PM ; [facility] Myalgia PAIN MANAGEMENT NEW CONSULT with KRYS JOSUE [facility] 08/01/2018 Last Documented On 8 1:34PM ; [facility] Sacroiliitis PAIN MANAGEMENT NEW CONSULT with KRYS JOSUE [facility] 08/01/2018 Last Documented On 8 1:34PM ; [facility] Medical Equipment - Implanted Devices Includes: Current and historical Devices No Medical Equipment Recorded Medications Includes: Current and historical Medications Current Medications (continue as prescribed) Gabapentin 300MG Oral Capsule 08/01/2018 Provider: Diagnosis: twice daily Last Documented On 8 10:09AM By NERI MULLINS ; [facility] TiZANidine HCl 2MG Oral Tablet 08/01/2018 Provider: Diagnosis: 1 tab TID Last Documented On 8 10:10AM By NERI MULLINS ; [facility] Medications Administered Includes: Administered Medications in patient's chart No Administered Medications Recorded Results Includes: Results from 01/09/2024 through 01/08/2025 No Results Recorded For Specified Dates History of Present Illness History of Present Illness not supported for this document type No History of Present Illness Recorded Social History Description Last Updated Cigarette smoking 1/2 pack daily 018 Last Documented On 8 1:34PM ; [facility] No consumption of alcohol 08/01/2018 Last Documented On 8 1:34PM ; [facility] Not using drugs 08/01/2018 Last Documented On 8 1:34PM ; [facility] 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 Last Documented On 8 1:34PM ; [facility] Single 08/01/2018 Last Documented On 8 1:34PM ; [facility] Smoking status : Current everyday smoker 08/01/2018 Last Documented On 8 1:34PM ; [facility] Medical History Includes: Medical History in patient's chart Description Last Updated Previously 1 time(s) 08/01/2018 Last Documented On 8 1:34PM ; [facility] Born by section 201208/01/2018 Last Documented On 8 1:34PM ; [facility] Surgery removal of gallbladder 8 Last Documented On 8 1:34PM ; [facility] Family History Includes: Family History in patient's chart Description Last Updated Family history of diabetes mellitus 07/22 Last Documented On 8 1:34PM ; [facility] Review of Systems Review of Systems not supported for this document type No Review of Systems Recorded Mental Status Description Oriented to time, place, and person No anxiety Functional Status No Functional Status Recorded Physical Exam Physical Exam not supported for this document type No Physical Exam Recorded Allergies Includes: Active, inactive, and resolved Allergies Substance Type Reaction Onset Date Resolved Date Statu s Vicodin Allergy respiratory distress 08/01/2018 Active Last Documented On 8 10:09AM ; [facility] Latex Allergy 08/01/2018 Active Last Documented On 8 10:09AM ; [facility] Clinical Notes Includes: Signed Clinical Notes starting from 11/10/2022 No Clinical Notes Recorded
--- OUTSIDE RECORDS SUMMARY | 2025-01-08 08:25 | XMS_ITS | Encounter Summary ---
Author Organization [facility] Address [address] [place] [address] Care Team Providers Care Supervisor Carding Name Role Phone Jae Ornelas MD Primary Care Provider [phone] Nadine Aiken MD Unavailable [phone] Encounter Details Date Type Department Care Team (Late st Contact Info) Description 03/29/2019 Abstract [facility] CONVERSION [address] [place] [address] , Generic ConversionMD Social History Tobacco Use Types Packs/Day Years Used Date Smoking Tobacco: Never Assessed Comments Unknown Sex and Gender Information Value Date Recorded Sex Assigned at Not on file Legal Sex Female 6:41 PM CDT Gender Identity Female 06/30/2022 8:22 AM CDT Sexual Orientation Straight 06/30/2022 8: 22 AM CDT documented as of this encounter Plan of Treatment Not on file documented as of this encounter Visit Diagnoses Not on filedocumented in this encounter Additional Health Concerns Infection Onset Date Last Indicated Resolved Time MRSA 11/06/2018 11/06/2018 documented as of this encounter Care Teams Supervisor Carding Relationship Specialty Start Date End Date Jae Ornelas MD [address] [place] [address] PCP - General FAMILY PRACTICE 06/09/18 Nadine Aiken MD [address] [place], [place] [id number] Consulting Physician CARDIOVASCULAR DISEASE 04/18/19 documented as of this encounter
--- OUTSIDE RECORDS SUMMARY | 2025-01-08 08:25 | XMS_ITS | Encounter Summary ---
Author Organization [facility] Address [facility] [place] [address] Care Team Providers Care Kitchen Cleaner Name Role Phone Jae Ornelas MD Primary Care Provider [phone] Nadine Aiken MD Unavailable [phone] Encounter Details Date Type Department Care Team (Late st Contact Info) Description 01/05/2018 Abstract [facility] CONVERSION [address] [place] [address] , Generic ConversionMD Social History Tobacco Use [...] documented as of this encounter Care Teams Kitchen Cleaner Relationship Specialty Start Date End Date Jae Ornelas MD [address] [place] [address] PCP - General FAMILY PRACTICE 06/09/18 Nadine Aiken MD [address] [place], [place] [id number] Consulting Physician CARDIOVASCULAR DISEASE 04/18/19 documented as of this encounter
--- OUTSIDE RECORDS SUMMARY | 2025-01-08 08:25 | XMS_ITS | Clinical Summary ---
Author Organization [facility] Address [address] [place] [address] Care Team Providers Care Candy Vendor Name Role Phone Jae Ornelas MD Primary Care Provider [phone] Nadine Aiken MD Unavailable [phone] Allergies Active Allergy Reactions Criticality Noted Date Comments Hydrocodone Unknown 10/31/2016 Latex Rash,Other (see comment) Low 04/28/2019 Burning and itching Hydrocodone-Acetaminop hen Anaphylaxis High 06/09/2018 Medications busPIRone (BUSPAR) 10 MG tablet Take 1 tablet (10 mg total) by mouth 2 (two) times daily. 11/30/2022 Active escitalopram (LEXAPRO) 20 MG tablet Take 1 tablet (20 mg total) by mouth daily. DIRECTED 12/27/2022 Active meloxicam (MOBIC) 15 MG tabletIndicatio ns:Patellofemor al pain syndrome of right knee Take 1 tablet (15 mg total) by mouth daily. 30 tablet 1 01/23/2023 Active albuterol sulfate HFA 108 (90 Base) MCG/ACT inhaler Inhale 2 puffs into the lungs every 6 (six) hours as needed. 03/06/2023 Active Active Problems Problem Noted Date Diagnosed Date Open dislocation of fifth to e of left foot, subsequent encounter 04/10/2023 Laceration of fifth toe of left foot, initial en counter 03/29/2023 Patellofemoral pain syndrome of right knee 01/24 Osteochondral lesion of talar dome 07/10/2022 Achilles tendinitis of left lower extremity 06/22 Pes planus of left foot 07/10/2022 Precordial chest pain 04/22/2019 Resolved Problems Problem Noted Date Diagnosed Date Resolved Date Closed nondisplaced fracture of proximal phalanx of lesser toe of right foot with routine healing, subsequent encounter 09/28/2022 Sprain of other ligament of left ankle, sequela 07/10/2022 03/29/2023 Family History Medical History Relation Comments Diabetes Mother Relation Status Comments Brother 1 Alive Brother 2 Alive Father Alive Mother Alive Social History Tobacco Use Types Packs/Day Years Used Date Smoking Tobacco: Some Days Cigarettes 0.5 17 Smokeless Tobacco: Never Tobacco Cessation:Ready to Q uit: Not Asked; Counseling Given: Not Answered Alcohol Use Standard Drinks/Week Comments No 0 (1 standard drink = 0.6 oz pur e alcohol) AUDIT-C Answer Date Recorded Frequency of Alcohol Consumption Never 04/16/2019 Average Number of Drinks Not on file 019 Frequency of Binge Drinking Not on file 03/23 Comments No Sex and Gender Information Value Date Recorded Sex Assigned at Not on file Legal Sex Female 6:41 PM CDT Gender Identity Female 06/30/2022 8:22 AM CDT Sexual Orientation Straight 06/30/2022 8: 22 AM CDT Last Filed Vital Signs Vital Sign Reading Time Taken Comments Blood Pressure 129/83 05/23/2021 3:54 PM CDT Pulse 73 05/23/2021 3:54 PM CDT Temperature 36.6 C (97.8 F) 05/23/2021 3:54 PM CDT Respiratory Rate 18 05/23/2021 3:54 PM CDT Oxygen Saturation 99% 05/23/2021 3:54 PM CDT Inhaled Oxygen Concentration - - Weight 139.3 kg (307 lb) 04/04/2023 3:22 PM CDT Height 162.6 cm (5' 4 ) 04/04/2023 3:22 PM CDT Body Mass Index 52.7 04/04/2023 3:22 PM CDT Plan of Treatment Health Maintenance Due Date Last Done Comments Annual Physical 1991 Pneumococcal Vaccine: Pediatrics (0 to 5 Years) and At-Risk Patients (6 to 64 Years) (1 of 2 - PCV) 1994 Hepatitis C 2006 COVID-19 Vaccine ( season) 2024 10/20/2023, 09/06/2022, 12/24/2021, Additional history exists Influenza Adult (#1) 2024 10/20/2023, 09/06/2022, 06/29/2021, Additional history exists Cervical Cancer Screening Pap Smear (Age 30 to 64) Every 3 Years 08/06/2027 08/06/2024 Cervical Cancer Screening Pap with HPV Testing (Age 30 to 64) Every 5 Years 08/06/2029 08/06/2024 Cervical Cancer Screening with HPV 08/06/2029 DTaP, Tdap and Td Vaccines (8 - Td or Tdap) 03/24/2033 03/24/2023, 11/29/2022, 05/26/1994, Additional history exists Hepatitis B Vaccines Completed 08/26/1999, 03/25/1999, 02/25/1999 HPV Vaccines Aged Out No longer eligi ble based on patient's age to complete this topic Meningococcal B Vaccine Aged Out No l onger eligible based on patient's age to complete this topic Meningococcal Vaccine Aged Out No missy oralia eligible based on patient's age to complete this topic RSV Immunizations Under 20 Months Aged Out No longer eligible based on patient's age to complete this topic Procedures Procedure Name Priority Date/Time Associated Diagnosis Comments CYTOPATH CERV/VAG THIN LAYER Routine 08/06/2024 11:17 AM CDT HUMAN PAPILLOMAVIRUS, HIGH-RISK TYPES Routine 08/06/2024 8:00 AM CDT from Last 3 Months or Most Recently Relevant to Health Maintenance Results * Cytopath Cerv/Vag Thin Layer (08/06/2024 11:17 AM CDT) THIN PREP PAP [address] [address] Department of Pathology Pathology Report CERVICAL/VAGINAL PAP SMEAR REPORT Name: JEN LOUISE Age: 1 1990 (Age: 33) Location: [facility] Sex: F Collected Date: 08/06/2024 Hospital #: [id number] Date Received: 08/07/2024 Date Reported: 08/11/2024 Provider: DESTINY PHAM MD INTERPRETATION CERVICAL/ENDOCERVI DARIUS: SATISFACTORY FOR EVALUATION. ENDOCERVICAL/TRANS FORMATION ZONE COMPONENT PRESENT. NEGATIVE FOR INTRAEPITHELIAL LESION OR MALIGNANCY. TRICHOMONADS PRESENT. NEGATIVE FOR HIGH RISK HPV. The FDA approved Aptima HPV assay is an in vitro nucleic acid amplification test for the qualitative detection of E6/E7 viral messenger RNA (mRNA) from 14 high-risk types of human papillomavirus (HPV) in cervical specimens. The high-risk HPV types detected by the assay include: 16,18,31,33,35,39, 45,51,52,56,58,59, 66, and 68. Electronically Signed Out By REX Brito (ASCP) CLINICAL HISTORY (Z12.4) CERVICAL CANCER SCREENING ROUTINE PAP TEST ThinPrep Pap Test with screening HR HPV testing requested, with reflex HPV 16/18 genotyping on negative cytology, positive HR HPV Date of Last Menstrual Period: UNKNOWN Menstrual Status: Irregular Contraceptive History: IUD SPECIMEN SUBMITTED CERVICAL/ENDOCERVI DARIUS Specimen Received:1 Thin Prep Vial, Image Assisted Pap (SMD) Please note: The Pap smear is not a diagnostic test. It is a screening test. Negative results on combined screening (Pap test and HPV-DNA) have a high negative predictive value (99.1-100 percent) for cervical cancer. The pap test is not effective in detecting cervical adenocarcinoma. [facility] 08/06/2024 11:1 7 AM CDT 08/07/2024 11:17 AM CDT Comment:CERVICAL/ENDOCERVICA L us Destiny Hernandez MD PATHOLOGY/CYTOLOGY ORDER DELIO Final Result [facility] [address] [email or web address] [address], * HUMAN PAPILLOMAVIRUS, HIGH-RISK TYPES (08/06/2024 8:00 AM CDT) SPECIMEN ENDOCERVIX 08/07/2024 4:00 PM CDT [facility] HPV DNA HIGH RISK NEGATIVE NEGATIVE 08/09/2024 12:34 AM CDT [facility] Comment:SEE CYTOLOGY REPORT 08/06/2024 8:00 AM CDT us Destiny Hernandez MD PATHOLOGY/CYTOLOGY ORDER DELIO Final Result [facility] [address] [place] [address], from Last 3 Months or Most Recently Relevant to Health Maintenance Additional Health Concerns Infection Onset Date Last Indicated MRSA 11/06/2018 11/06/2018 Insurance [facility] Care Teams Candy Vendor Relationship Specialty Start Date End Date Jae Ornelas MD [address] [place] [address] PCP - General FAMILY PRACTICE 06/09/18 Nadine Aiken MD [address] [place] [address] Consulting Physician CARDIOVASCULAR DISEASE 04/18/19
== END 2025-01-08 08:21 | disposition home or self-care (01) ==
LOC: CHSIMG 08:22
PROVIDERS: PCP Family Medicine; Visit Provider Family Medicine
DX: R29.818 Other symptoms and signs involving the nervous system (principal); Z82.3 Family history of stroke; M54.50 Low back pain, unspecified
CPT/HCPCS: 70544; 72148

== ENCOUNTER 2025-02-17 09:27 | Outpatient (CLI) | payer OTHER, SELFPAY ==
--- NOTE | ~2025-02-17 | US_ITS ---
EXAMINATION: US venous doppler [facility] DATE: 02/17/2025 12:12 INDICATION: Bilateral lower limb swelling TECHNIQUE: Grayscale ultrasound images without and with compression and Doppler ultrasound images of the bilateral lower extremity veins were obtained. COMPARISON: None. FINDINGS: The visualized portions of right common femoral vein, profunda (deep) femoral vein, femoral vein, pop liteal vein, posterior tibial veins, peroneal veins, gastrocnemius vein and greater saphenous vein ou tflow are patent. The visualized portions of left common femoral vein, profunda femoral vein, femoral vein, popliteal v ein, posterior tibial veins, peroneal veins, gastrocnemius vein and greater saphenous vein outflow ar e patent. IMPRESSION: 1. No deep venous thrombosis in either lower limb. Reviewed, dictated and finalized at location B.
[2025-02-17 09:57] LABS: Basophils Absolute Auto 0.05 K/mm3 (0.00-0.10); Basophils Percent Auto 0.7 % (0.0-1.0); Eosinophils Percent Auto 1.3 % (1.0-6.0); Hematocrit 40.7 % (35.0-49.0); Hemoglobin 13.3 g/dL (12.0-15.0); Immature Granulocyte Absolute 0.04 K/mm3 (0.00-0.00); Immature Granulocyte Percent A 0.5 % (0.0-0.0); Lymphocytes Absolute Auto 2.54 K/mm3 (1.10-4.50); Lymphocytes Percent Auto 33.8 % (18.0-42.0); Mean Corpuscular HGB Conc 32.7 g/dL (32-36); Mean Corpuscular Hemoglobin 28.5 pg (27.0-31.0); Mean Corpuscular Volume 87.2 fL (78.0-102.0); Mean Platelet Volume 9.8 fl (9.2-11.8); Monocytes Absolute Auto 0.58 K/mm3 (0.10-0.90); Monocytes Percent Auto 7.7 % (2.0-11.0); Neutrophils Absolute Auto 4.21 K/mm3 (1.70-7.20); Platelet Count Result 271 K/mm3 (150-420); Red Blood Count 4.67 M/mm3 (4.20-5.40); Red Cell Distribution Width 12.9 % (11.6-14.4); White Blood Count 7.5 K/mm3 (4.8-10.8)
[2025-02-17 10:13] LABS: D Dimer 0.54 mg/L (0.19-0.50)
--- OUTSIDE RECORDS SUMMARY | 2025-02-17 10:33 | XMS_ITS | Clinical Summary ---
Author Organization [facility] Address [address] [place] [address] Care Team Providers Care Ceramics Artist Name Role Phone Jae Ornelas MD Primary Care Provider [phone] Nadine Aiken MD Unavailable [phone] Allergies Active Allergy Reactions Criticality Noted Date [...] Date Last Done Comments Annual Physical 1991 Hepatitis C 2006 Pneumococcal Vaccine: Pediatrics (0 to 5 Years) and At-Risk Patients (6 to 49 Years) (1 of 2 - PCV) 2007 COVID-19 Vaccine ( season) 2024 10/20/2023, 09/06/2022, 12/24/2021, Additional history exists Cervical Cancer Screening Pap [...] (08/06/2024 11:17 AM CDT) THIN PREP PAP [address] [address] Department of Pathology Pathology Report CERVICAL/VAGINAL PAP SMEAR REPORT Name: JEN LOUISE Age: 1 1990 (Age: 33) Location: [facility] Sex: F Collected Date: 08/06/2024 [facility] #: [id number] Date Received: 08/07/2024 Date Reported: 08/11/2024 Provider: [...] is not effective in detecting cervical adenocarcinoma. [facility] 08/06/2024 11:1 7 AM CDT 08/07/2024 11:17 AM CDT Comment:CERVICAL/ENDOCERVICA L us Destiny Hernandez MD PATHOLOGY/CYTOLOGY ORDER DELIO Final Result [facility] [address] [place] [place] [address], * HUMAN PAPILLOMAVIRUS, HIGH-RISK TYPES (08/06/2024 8:00 AM CDT) SPECIMEN ENDOCERVIX 08/07/2024 4:00 PM CDT [facility] HPV DNA HIGH RISK NEGATIVE NEGATIVE 08/09/2024 12:34 AM CDT [facility] Comment:SEE CYTOLOGY REPORT 08/06/2024 8:00 AM CDT Destiny Hernandez MD PATHOLOGY/CYTOLOGY ORDER DELIO Final Result [facility] [address] [place] [address], from Last 3 Months or Most Recently Relevant to Health Maintenance Additional Health Concerns Infection Onset Date Last Indicated MRSA 11/06/2018 11/06/2018 Insurance [facility] Care Teams Ceramics Artist Relationship Specialty Start Date End Date Jae Ornelas MD [address] [place], [place] [id number] PCP - General FAMILY PRACTICE 06/09/18 Nadine Aiken MD [address] [place], [place] [id number] Consulting Physician CARDIOVASCULAR DISEASE 04/18/19
--- OUTSIDE RECORDS SUMMARY | 2025-02-17 10:33 | XMS_ITS | Encounter Summary ---
Author Organization [facility] Address [address] [place] [address] Care Team Providers Care Faculty Neuropsychologist Name Role Phone Jae Ornelas MD Primary Care Provider [phone] Nadine Aiken MD Unavailable [phone] Encounter Details Date Type Department Care Team (Late st Contact Info) Description 03/29/2019 Abstract SFL CONVERSION [address] [place] [address] , Generic ConversionMD Social History Tobacco Use [...] documented as of this encounter Care Teams Faculty Neuropsychologist Relationship Specialty Start Date End Date Jae Ornelas MD [address] [place] [address] PCP - General FAMILY PRACTICE 06/09/18 Nadine Aiken MD [address], [place] [id number] Consulting Physician CARDIOVASCULAR DISEASE 04/18/19 documented as of this encounter
--- OUTSIDE RECORDS SUMMARY | 2025-02-17 10:33 | XMS_ITS | Encounter Summary ---
Author Organization [facility] Address [facility] [place] [address] Care Team Providers Care Supervisor Case Loading Name Role Phone Jae Ornelas MD Primary Care Provider [phone] Nadine Aiken MD Unavailable [phone] Encounter Details Date Type Department Care Team (Late st Contact Info) Description 01/05/2018 Abstract [facility] CONVERSION [address] [place] [address] , Generic ConversionMD Social History Tobacco Use [...] as of this encounter Care Teams Supervisor Case Loading Relationship Specialty Start Date End Date Jae Ornelas MD [address] [place] [address] PCP - General FAMILY PRACTICE 06/09/18 Nadine Aiken MD [address] [place], [place] [id number] Consulting Physician CARDIOVASCULAR DISEASE 04/18/19 documented as of this encounter
[2025-02-17 10:56] LABS: Alanine Aminotransferase 48 U/L (14-59); Albumin Level 3.3 g/dL (3.4-5.0); Alkaline Phosphatase 24 U/L (46-116); Anion Gap 5 mmol/L (4-12); Aspartate Amino Transferase 26 U/L (15-37); Bilirubin,Total 0.4 mg/dL (0.00-1.00); Blood Urea Nitrogen 20 mg/dL (7-18); Carbon Dioxide 31 mmol/L (21-32); Chloride 106 mmol/L (98-108); Estimated Glomerular Filt Rate > 60; Glucose 91 mg/dL (70-99); Osmolality Calculated 296 mOsm/kg (285-295); Potassium 4.1 mmol/L (3.5-5.1); Sodium 142 mmol/L (136-145); Total Protein 6.9 g/dL (6.4-8.2)
== END 2025-02-17 09:28 | disposition home or self-care (01) ==
PROVIDERS: PCP Family Medicine; Visit Provider Family Medicine
DX: R79.1 Abnormal coagulation profile (principal); M79.89 Other specified soft tissue disorders
CPT/HCPCS: 36415; 80053; 85025; 85380; 93970

== ENCOUNTER 2025-04-20 12:56 | Outpatient (CLI) | payer OTHER, SELFPAY ==
--- NOTE | ~2025-04-20 | XR_ITS ---
AP and lateral views of the bilateral hips Clinical history: Pain Findings: No acute fracture or dislocation is seen. Osseous alignment is anatomic. Bilateral hip and SI joint spaces are preserved. Possible calcific tendinitis at the gluteal tendon insertions near rig ht greater trochanter. Impression: Suspected calcific tendinitis the right gluteal tendon insertions the right greater trochanter. Reviewed, dictated and finalized at location . Impression: Suspected calcific tendinitis the right gluteal tendon insertions the right gre ater trochanter.
--- OUTSIDE RECORDS SUMMARY | 2025-04-20 13:09 | XMS_ITS ---
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 Name Role Phone HARISH BARAJAS Attending Unavailable MIRIAN CASAS Primary Unavailable Immunization Immunization Date Status Additional Notes Code Code System DTP 02/23/1989 Completed 01 CVX DTP 08/24/1989 Completed CVX DTP 04/27/1990 Completed CVX DTP 09/27/1990 Completed 01 CVX DTP 05/26/1994 Completed 01 CVX OPV 02/23/1989 Completed 02 CVX OPV 04/27/1989 Completed 02 CVX OPV 08/24/1989 Completed 02 CVX OPV 09/27/1990 Completed 02 CVX OPV 05/26/1994 Completed 02 CVX MMR 02/22/1990 Completed 03 CVX MMR 05/26/1994 Completed 03 CVX Hep B, adolescent or pediatric 02/25/1999 Completed 08 CVX Hep B, adolescent or pediatric 03/25/1999 Completed 08 CVX Hep B, adolescent or pediatric 08/26/1999 Completed 08 CVX Hib, unspecified formulation 09/27/1990 Completed 17 CVX Tdap 11/29/2022 Completed 115 CVX Tdap 03/24/2023 Completed 115 CVX Influenza, split virus, trivalent, preservative 06/28/2012 Completed 141 CVX Influenza, split virus, quadrivalent, PF 06/29/2021 Completed 150 CVX Influenza, split virus, quadrivalent, PF 09/06/2022 Completed 150 CVX Influenza, MDCK, trivalent, PF 06/26/2024 Completed 153 CVX Influenza, MDCK, quadrivalen t, PF 10/20/2023 Completed 171 CVX COVID-19, mRNA, LNP-S, PF, 3 0 mcg/0.3 mL dose 06/08/2021 Completed 208 CVX COVID-19, mRNA, LNP-S, PF, 3 0 mcg/0.3 mL dose 06/29/2021 Completed 208 CVX COVID-19, mRNA, LNP-S, PF, 3 0 mcg/0.3 mL dose, selwyn-sucrose 12/24/2021 Completed 217 CVX COVID-19, mRNA, LNP-S, bivalent, PF, 30 mcg/0.3 mL dose 09/06/2022 Completed 300 CVX COVID-19, mRNA, LNP-S, PF, selwyn-sucrose, 30 mcg/0.3 mL 10/20/2023 Completed 309 CVX COVID-19, mRNA, LNP-S, PF, selwyn-sucrose, 30 mcg/0.3 mL 06/26/2024 Completed 309 CVX Social History Type Status Start Date End Date Code Code Syst em Smoking History Current every day smoker 341467516 SNOMED CT Sex Female Vital Signs Vital Sign Value Unit Hancock Value Hancock Unit Date/Time Recent/Initial? Code Code System Body Mass Index 54.75 kg/m2 02/05/2025 09:21 Initial 97201 -5 [facility] Systolic Blood Pressure 150 mm[Hg] 02/05/2025 09:21 Initial 8480- 6 [facility] Diastolic Blood Pressure 73 mm[Hg] 02/05/2025 09:21 Initial 8462- 4 [facility] Body Surface Area 2.62 m2 02/05/2025 09:21 Initial 3140- 1 [facility] Height 165.100 0 cm 65.00 in 02/05/2025 09:21 Initial 8302- 2 [facility] O2 Saturation 99 % 2024 09:21 Initial 37357 -5 [facility] Pulse 89.0 /min 02/05/2025 09:21 Initial 8867- 4 [facility] Temperature 37.1 Tammie 98.7 F 02/06/20 25 09:21 Initial 8310- 5 [facility] Weight 149.23 kg 329.00 lbs 02/05/2025 09:21 Initial 75307 -7 [facility] Medications Medication Start Date End Date Route Frequency Dose Code Code System Medication Instructions Home Meds oxyCODONE HCl-acetaminophen 5MG-325MG Oral Tablet 05/04/2022 03/02/2025 BY MOUTH NEEDED EVERY 6 HOURS 1 TABLET 9129070 RxNorm TAKE 1 TABLET BY MOUTH NEEDED EVERY 6 HOURS Mirena 52MG Intrauterine Insert, Extended Release 05/04/2022 Unknown INTRAUT ERINE DIRECTED 52 MILLIGRA MS 562454 RxNorm 52 MILLIGR AMS INTRAUT ERINE DIRECTE D ProAir HFA 0.09MG/1Actuation Inhalation Suspension 05/04/2022 Unknown INHALAT ION NEEDED EVERY 6 HOURS 1 unit(s) 371559 RxNorm 1 EACH INHALAT ION NEEDED EVERY 6 HOURS Cyclobenzaprine HCl 5MG Oral Tablet 02/05/2025 04/09/2025 BY MOUTH NEEDED 3 TIMES A DAY 1 TABLET [id number] RxNorm TAKE 1 TABLET BY MOUTH NEEDED 3 TIMES A DAY FOR MUSCLE SPASM Gabapentin 300MG Oral Capsule 02/05/2025 04/13/2025 BY MOUTH THREE TIMES A DAY 1 CAPSULE 629478 RxNorm TAKE 1 CAPSULE BY MOUTH THREE TIMES A DAY Escitalopram 20MG Oral Tablet 02/05/2025 02/18/2025 ORAL NEEDED 20 MILLIGRA MS 856209 RxNorm TAKE 20 MILLIGR AMS ORAL NEEDED Nurtec ODT 75 MG Oral Tablet, Disintegrating 02/05/2025 Unknown ORAL NEEDED 75 MG [id number] RxNorm TAKE 75 MG ORAL NEEDED Rosuvastatin 20MG Oral Tablet 02/05/2025 Unknown ORAL ONCE A DAY 20 MILLIGRA MS 322605 RxNorm TAKE 20 MILLIGR AMS ORAL ONCE A DAY Venlafaxine HCl 75MG Oral Capsule, Extended Release 02/05/2025 Unknown ORAL ONCE A DAY 75 MILLIGRA MS 409578 RxNorm TAKE 75 MILLIGR AMS ORAL ONCE A DAY busPIRone 15MG Oral Tablet 02/05/2025 Unknown ORAL TWICE A DAY 15 MILLIGRA MS 901391 RxNorm TAKE 15 MILLIGR AMS ORAL TWICE A DAY hydrOXYzine Pamoate 25MG Oral Capsule 02/05/2025 02/18/2025 ORAL TWICE A DAY 25 MILLIGRA MS 995637 RxNorm TAKE 25 MILLIGR AMS ORAL TWICE A DAY oxyCODONE HCl-acetaminophen 5MG-325MG Oral Tablet 02/20/2025 03/23/2025 BY MOUTH NEEDED TWICE A DAY 1 TABLET [id number] RxNorm TAKE 1 TABLET BY MOUTH NEEDED TWICE A DAY FOR PAIN Cyclobenzaprine HCl 5MG Oral Tablet 02/23/2025 04/09/2025 ORAL THREE TIMES A DAY 5 MILLIGRA MS 797285 RxNorm TAKE 5 MILLIGR AMS ORAL THREE TIMES A DAY Escitalopram 20MG Oral Tablet 02/23/2025 Unknown ORAL ONCE A DAY 20 MILLIGRA MS 586523 RxNorm TAKE 20 MILLIGR AMS ORAL ONCE A DAY hydrOXYzine Pamoate 25MG Oral Capsule 02/23/2025 Unknown ORAL NEEDED TWICE A DAY 25 MILLIGRA MS 875353 RxNorm TAKE 25 MILLIGR AMS ORAL NEEDED TWICE A DAY oxyCODONE HCl-acetaminophen 5MG-325MG Oral Tablet 04/09/2025 04/09/2025 BY MOUTH NEEDED DAILY 1 TABLET [id number] RxNorm TAKE 1 TABLET BY MOUTH NEEDED DAILY FOR PAIN oxyCODONE HCl-acetaminophen 5MG-325MG Oral Tablet 04/09/2025 04/23/2025 BY MOUTH NEEDED TWICE A DAY 1 TABLET 4799135 RxNorm TAKE 1 TABLET BY MOUTH NEEDED TWICE A DAY FOR PAIN Cyclobenzaprine HCl 5MG Oral Tablet 04/09/2025 Unknown ORAL THREE TIMES A DAY 5 MILLIGRA MS 580147 RxNorm TAKE 5 MILLIGR AMS ORAL THREE TIMES A DAY Cyclobenzaprine HCl 5MG Oral Tablet 04/09/2025 04/16/2025 BY MOUTH NEEDED 3 TIMES A DAY 1 TABLET [id number] RxNorm TAKE 1 TABLET BY MOUTH 3 TIMES DAILY NEEDED FOR MUSCLE SPASM Gabapentin 300MG Oral Capsule 04/13/2025 Unknown BY MOUTH THREE TIMES A DAY 1 CAPSULE 440932 RxNorm TAKE 1 CAPSULE BY MOUTH THREE TIMES A DAY Cyclobenzaprine 10MG Oral Tablet 04/16/2025 Unknown BY MOUTH NEEDED 3 TIMES A DAY 1 TABLET 875737 RxNorm TAKE 1 TABLET BY MOUTH NEEDED 3 TIMES A DAY Assessment You had the following problems:MIGRAINE WITH AURALEFT LOWER QUADRANT PAINHEADACHELOW BACK PAINSPINAL STENOSISLUMBAR RADICULOPATHY Hospital Discharge Instructions Should you have any questions prior to discharge, please contact a member of your healthcare team. If you have left the hospital and have any questions, please contact your primary care physician. Reason For Referral No Data Found Problems Problem Start Date Resolved Date Status Code Code System MIGRAINE WITH AURA active 0695087 S NOMED-CT LEFT LOWER QUADRANT PAIN active 54234 6002 SNOMED-CT HEADACHE active 90371494 SNOMED-CT LOW BACK PAIN active 450539636 SNOMED -CT SPINAL STENOSIS active 15961478 SN ED-CT LUMBAR RADICULOPATHY active 559218424 SNOMED-CT Allergies and Adverse Reactions Allergy Substance Reaction Severity Start Date Concern Status Co de Code System HYDROCODONE Active 5489 RxNorm SUMATRIPTAN Active 52486 RxNorm LATEX Active 3931996 RxNorm Plan of Treatment Excision Mass 05/04/2022 COVID-19 Pre-op Screen 05/03/2022 Follow Up 04/30/2025 Epidural Steroid Injection Lumbar 02/23 OR Epidural 02/23/2025 Epidural Steroid Injection Lumbar 02/23 OR Epidural 02/23/2025 Plan Continue at home exercises and stretching Gabapentin 300mg TID Flexeril 5mg TID Discontinue orphenadrine L5-S1 TOBIAS Consider DMBB L4-5, L5-S1 Encounters Encounter Diagnosis Start Date Code Code Sys tem Spondylosis without myelopat hy or radiculopathy, lumbar region 02/05/2025 SNOMED-CT Personal Care Team Section Performer Name Performer Role Active Date Inactive YESSENIA Moreland PCP - Primary care physician Progress Notes [facility] 02/20/2025 12:20 Demographics Basic Patient Name Age Sex REINIER LOUISE JOANAJEWELDmitry 1990 34 years Female Date/Time: 02/16 & 02/17 Multiple Calls: yes Caller Name: Reinier Louise staff called pt. yesterday, with your reply. Appt confirmed for 02.23.2025, in [place]. 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 not only the ankles, but worse at bottom of legs. ALSO, pain in bi-lat. hips. Reports worse with getting in and out of a car, & worse with stairs. The pain wraps around into her ovaries/ front mid section/ front hips. Reports she does have numbness in her legs, from the pain in her back. weak when going down any stairs. Is agreeable to using banister or handrail when available. Patient prefers further imaging, in thoracic or middle back. PCP deferred to Pain Management Provider. Wants diuretic, as feels the swelling is water related. Is agreeable to a low sodium diet, for now. PCP did not prescribe this, pt taking OTC diuretic. re-iterated to take only as it is directed. appt 02.23.25 in [place] and follow up appt is the following Sunday03.02.2025 at 11am. ~~~~~~~~~~~~~~~~~~~~~~~~~~~~~ Demographics Basic Patient Name Age Sex REINIER LOUISE 1990 34 years Female Date/Time: 02/12/2025 LEFT VOICEMAIL Multiple Calls: YES - MULTIPLE VM Caller Name: SELF Phone Number: IN CHART PT CALLED TO REPORT HER FINGERS ARE NUMB 3 OF THEM, FOR THE LAST 24 HOURS NOW. CANNOT FEEL HER FINGERS, AT THIS TIME. PLEASE ADVISE. NEXT APPT IS TOBIAS AT L5-S1 ON 02.23.2025 Addendum [phone] - Please schedule office appointment Addendum [phone] - APPT. IS SET UP FOR SUNDAY - PROCEDURE IN O.R. PT WILL CONSIDER SEEING PCP, IN THE NEXT WEEK, THE LEGS HAVE SOME SWELLING IN THE LOWER LIMBS, THAT IS NEW. [facility] 02/05/2025 10:31 All Demographics Patient Name Age Sex Visit Number Admission Date/Time Attending Physician Date of Service Room and Bed Emergency Contact REINIER LOUISEDmitry 1990 34 years Female [id number] 02/05/2025 09:09 Hal Stallings 02/05/2025 04-OP YARED LOUISE - [id number] PAIN MANAGEMENT HISTORY & PHYSICAL Vital Signs: Most Recent Today Date/Time BP (mm/Hg) BP Position/Site Heart Rate Resp Temp (F) SPO2% O2 Device Pain Score Height (in) Weight (lbs/ozs) BMI Systolic Diastolic Pulse Site O2 L/min 02/05/2025 09:21 150/73 Sitting/Left Arm 89 98.7 Tympanic 99 % Room Air 21% 8 65 in 329.0 54.75 150 73 Pulse Ox Chief Complaint: Lumbar radiculopathy History of Present Illness: Patient here today, for pain management evaluation for Lumbar Radiculopathy. Location: The pain is located in the back, right buttocks, knee, neck, and right side. The pain does radiate from right shoulder and down into the hip and buttocks. Quality: Patient rates the pain today, as a 8/10 at this time, and at times the pain may be as severe as a 10/10. The pain may be described as sharp, stabbing, throbbing, and ache. Duration: Constant Timing: Patient reports this pain has been present since December 21, 2024. Alleviating Factors: Pain is relieved by laying down and nothing much else. Associated Symptoms: Pain is worsened by lifting, bending, and movement. Pain History: Patient reports that they have had recent falls. She fell out of a chair at work. PCP not aware. PHQ-9 Depression Screening Patient condition has declined since last screening Patient condition has improved since last screening X No previous Screening Patient Declined Screening Score has not changed significantly since last visit PHQ-9 Score Assessment: N/A: PHQ-9 not performed/Patient declined 0-4: Not an indicator of depression 7 5-9: Indicates mild depression 10-14: Indicates moderate depression 15-19: Indicates moderately severe depression 20-27: Indicates severe depression Depression Remission Indicated: Yes, previous PHQ-9 score >9 in the past 12 months with current score <5 X Previous PHQ-9 score or date is unknown Previous PHQ-9 score is 5 or higher CORIE-7 Score Assessment: N/A: CORIE-7 not performed/Patient declined 0-4: Minimal Anxiety 7 5-9: Mild Anxiety 10-14: Moderate Anxiety 15-21: Severe Anxiety Review of Systems Constitutional: denies changes in speech, night sweats or chills HEENT: denies facial swelling or nasal deformity Cardiovascular: denies chest pain or chest pressure Respiratory: denies cough, sputum or chest congestion Gastrointestinal: denies excessive belching or abdominal mass Endocrine: denies excessive thirst or fruity breath Musculoskeletal: denies muscle atrophy, spasms in low back, Neurologic: denies altered mental status or speech, burning tingling down bilateral lower extremities and feet Integumentary: denies blistering or hives Hematologic/Lymphatic: denies abnormal bleeding or lymph node tenderness Psychiatric: denies agitation or delusions Physical Exam Appearance: well groomed, healthy appearance, well nourished, NAD HEENT: PERRLA, neurological systems grossly intact Neck: supple, nontender Chest/Lungs: clear to auscultation, no dyspnea, breath sounds normal, no rales/crackles/rhonchi or wheezing Cardiovascular: regular rate and rhythm S1-S2 present, no carotid bruit, femoral/pedal pulses normal throughout Abdomen: round, soft, nontender, active bowel sounds, no tenderness with palpation Rectal: normal per patient Pelvic: normal per patient Extremities: no signs of significant edema, good pulses Problem Focused Physical Exam: Patient presents with low back pain and radicular pain down both lower extremities that became more severe in early December 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 The symptoms are described as burning, tingling and numbness all the way to her toes. Patient denies weakness in the legs but reported occasional loss of bladder function. She has been to her primary care provider and has tried and failed conservative treatment including 3 rounds of oral steroids, orphenadrine for muscle spasms, gabapentin at night, Percocet and stretching with home exercises 30 min a day 3x per week. She says the steroids were not helpful and she is seeing minimal improvement with exercises. She reports that the gabapentin was effective and allowed her to improve her sleep at night. The patient had an MRI completed that shows facet arthropathy in L4-5 and a paracentral right foraminal disc protrusion with severe right neural foraminal narrowing. This finding correlates with the exam in office. Axial Low Back/ radiculopathy Pain Assessment Patient ambulates into office with difficulty. Patient has decreased range of motion. Patient's physical exam exhibits axial low back pain with anterior column pain with forward flexion. Pain with prolonged standing as well. Patient reports radicular pain in bilateral lower extremities down to her toes. She reports the pain as burning, tingling and numbness. Patient states pain is increased with coughing/sneezing. We discussed risks and benefits of TOBIAS at L5-S1. Patient verbalizes understanding and wishes to proceed. Lumbar Facet Assessment Patient has pain with extension of the spine and rotation. Patient has referred pain to the anterior and lateral aspects of the thighs as well. The patient has pain in their low back while riding in a car and washing dishes. The patient feels they must bend forward and stretch their back to relieve pain. Patient is positive for facet joint mediated pain for a diagnosis of lumbar facet joint arthropathy. This is confirmed on lumbar MRI. We discussed treatment options for this. We will readdress this at subsequent appointments. Radiology: Imaging reviewed with patient Pain Treatment History: Conservative Measures Tried and Failed: Rest, heat, ice, stretching, home exercises Medications Trialed: Orphenadrine (muscle relaxer), oral steroids Previous Interventional Pain Procedures: None Plan Continue at home exercises and stretching Gabapentin 300mg TID Flexeril 5mg TID Discontinue orphenadrine L5-S1 TOBIAS Consider DMBB L4-5, L5-S1 Problem List Migraine with aura Left lower quadrant pain Headache Low back pain Spinal stenosis Lumbar radiculopathy Surgery List Cholecystectomy, EGD, History of tonsillectomy, C section, EXC B9 LESION MRGN XCP SK TG T/A/L >4.0 CM, 05/04/2022 Colonoscopy, History of adenoidectomy, Smoking Status: Current every day smoker, Cessation Education: Allergy List NAPROXEN, Medication HYDROCODONE, Medication SUMATRIPTAN, Medication DULOXETINE, Medication KETOROLAC TROMETHAMINE, Medication Home Meds: Dose and Freq Medication Dosage Frequency Venlafaxine HCl 75MG Oral Capsule, Extended Release 75 MILLIGRAMS ONCE A DAY Orphenadrine Citrate 100MG Oral Tablet, Extended Release 100 MILLIGRAMS TWICE A DAY Rosuvastatin 20MG Oral Tablet 20 MILLIGRAMS ONCE A DAY Escitalopram 20MG Oral Tablet 20 MILLIGRAMS NEEDED hydrOXYzine Pamoate 25MG Oral Capsule 25 MILLIGRAMS TWICE A DAY Nurtec ODT 75 MG Oral Tablet, Disintegrating 75 MG NEEDED busPIRone 15MG Oral Tablet 15 MILLIGRAMS TWICE A DAY Mirena 52MG Intrauterine Insert, Extended Release 52 MILLIGRAMS DIRECTED ProAir HFA 0.09MG/1Actuation Inhalation Suspension 1 EACH NEEDED EVERY 6 HOURS oxyCODONE HCl-acetaminophen 5MG-325MG Oral Tablet 1 TABLET NEEDED EVERY 6 HOURS Gabapentin 300MG Oral Capsule 300 MILLIGRAMS AT BEDTIME
--- OUTSIDE RECORDS SUMMARY | 2025-04-20 13:09 | XMS_ITS ---
Author Organization Unknown Address [address] [place] [address] [phone] Phone Care Team Providers Care Guest Relations Manager Name Role Phone HARISH BARAJAS Attending Unavailable [...] em Smoking History Current every day smoker [id number] SNOMED CT Sex Female Vital Signs Vital Sign Value Unit [place] Date/Time Recent/Initial? Code Code System Body Mass Index 54.75 kg/m2 03/02/2025 10:54 Initial 89607 -5 [facility] Systolic Blood Pressure 169 mm[Hg] 03/02/2025 10:54 Initial 8480- 6 [facility] Diastolic Blood Pressure 104 mm[Hg] 03/02/2025 10:54 Initial 8462- 4 [facility] Body Surface Area 2.62 m2 03/02/2025 10:54 Initial 3140- 1 [facility] Height 165.100 0 cm 65.00 in 03/02/2025 10:54 Initial 8302- 2 [facility] O2 Saturation 98 % 2024 10:54 Initial 08832 -5 [facility] Pulse 105.0 /min 03/02/2025 10:54 Initial 8867- 4 [facility] Temperature 36.6 Tammie 97.9 F 03/02/20 25 10:54 Initial 8310- 5 [facility] Weight 149.23 kg 329.00 lbs 03/02/2025 10:54 Initial 31292 -7 [facility] Medications Medication Start Date End Date Route Frequency Dose Code Code System Medication Instructions Home Meds oxyCODONE HCl-acetaminophen 5MG-325MG Oral Tablet 05/04/2022 03/02/2025 BY MOUTH NEEDED EVERY 6 HOURS 1 TABLET 7198074 RxNorm TAKE 1 TABLET BY MOUTH NEEDED EVERY 6 HOURS Mirena 52MG Intrauterine Insert, Extended Release 05/04/2022 Unknown INTRAUT ERINE DIRECTED 52 MILLIGRA MS 788870 RxNorm 52 MILLIGR AMS INTRAUT ERINE DIRECTE D ProAir HFA 0.09MG/1Actuation Inhalation Suspension 05/04/2022 Unknown INHALAT ION NEEDED EVERY 6 HOURS 1 unit(s) 473859 RxNorm 1 EACH INHALAT ION NEEDED EVERY 6 HOURS Cyclobenzaprine HCl 5MG Oral Tablet 02/05/2025 04/09/2025 BY MOUTH NEEDED 3 TIMES A DAY 1 TABLET [id number] RxNorm TAKE 1 TABLET BY MOUTH NEEDED 3 TIMES A DAY FOR MUSCLE SPASM Gabapentin 300MG Oral Capsule 02/05/2025 04/13/2025 BY MOUTH THREE TIMES A DAY 1 CAPSULE 758063 RxNorm TAKE 1 CAPSULE BY MOUTH THREE TIMES A DAY Nurtec ODT 75 MG Oral Tablet, Disintegrating 02/05/2025 Unknown ORAL NEEDED 75 MG [id number] RxNorm TAKE 75 MG ORAL NEEDED Rosuvastatin 20MG Oral Tablet 02/05/2025 Unknown ORAL ONCE A DAY 20 MILLIGRA MS 293064 RxNorm TAKE 20 MILLIGR AMS ORAL ONCE A DAY Venlafaxine HCl 75MG Oral Capsule, Extended Release 02/05/2025 Unknown ORAL ONCE A DAY 75 MILLIGRA MS 467311 RxNorm TAKE 75 MILLIGR AMS ORAL ONCE A DAY busPIRone 15MG Oral Tablet 02/05/2025 Unknown ORAL TWICE A DAY 15 MILLIGRA MS 852536 RxNorm TAKE 15 MILLIGR AMS ORAL TWICE A DAY oxyCODONE HCl-acetaminophen 5MG-325MG Oral Tablet 02/20/2025 03/23/2025 BY MOUTH NEEDED TWICE A DAY 1 TABLET [id number] RxNorm TAKE 1 TABLET BY MOUTH NEEDED TWICE A DAY FOR PAIN Cyclobenzaprine HCl 5MG Oral Tablet 02/23/2025 04/09/2025 ORAL THREE TIMES A DAY 5 MILLIGRA MS 155987 RxNorm TAKE 5 MILLIGR AMS ORAL THREE TIMES A DAY Escitalopram 20MG Oral Tablet 02/23/2025 Unknown ORAL ONCE A DAY 20 MILLIGRA MS 838803 RxNorm TAKE 20 MILLIGR AMS ORAL ONCE A DAY hydrOXYzine Pamoate 25MG Oral Capsule 02/23/2025 Unknown ORAL NEEDED TWICE A DAY 25 MILLIGRA MS 737921 RxNorm TAKE 25 MILLIGR AMS ORAL NEEDED TWICE A DAY oxyCODONE HCl-acetaminophen 5MG-325MG Oral Tablet 04/09/2025 04/09/2025 BY MOUTH NEEDED DAILY 1 TABLET [id number] RxNorm TAKE 1 TABLET BY MOUTH NEEDED DAILY FOR PAIN oxyCODONE HCl-acetaminophen 5MG-325MG Oral Tablet 04/09/2025 04/23/2025 BY MOUTH NEEDED TWICE A DAY 1 TABLET [id number] RxNorm TAKE 1 TABLET BY MOUTH NEEDED TWICE A DAY FOR PAIN Cyclobenzaprine HCl 5MG Oral Tablet 04/09/2025 Unknown ORAL THREE TIMES A DAY 5 MILLIGRA MS 830342 RxNorm TAKE 5 MILLIGR AMS ORAL THREE TIMES A DAY Cyclobenzaprine HCl 5MG Oral Tablet 04/09/2025 04/16/2025 BY MOUTH NEEDED 3 TIMES A DAY 1 TABLET [id number] RxNorm TAKE 1 TABLET BY MOUTH 3 TIMES DAILY NEEDED FOR MUSCLE SPASM Gabapentin 300MG Oral Capsule 04/13/2025 Unknown BY MOUTH THREE TIMES A DAY 1 CAPSULE 080671 RxNorm TAKE 1 CAPSULE BY MOUTH THREE TIMES A DAY Cyclobenzaprine 10MG Oral Tablet 04/16/2025 Unknown BY MOUTH NEEDED 3 TIMES A DAY 1 TABLET 914635 RxNorm TAKE 1 TABLET BY MOUTH NEEDED [...] Code Code System MIGRAINE WITH AURA active 9737292 S NOMED-CT LEFT LOWER QUADRANT PAIN active 08665 6002 SNOMED-CT HEADACHE active 97008192 SNOMED-CT LOW BACK PAIN active 478933406 SNOMED -CT SPINAL STENOSIS active 36203270 SNOM ED-CT LUMBAR RADICULOPATHY active 254648711 SNOMED-CT Allergies and Adverse Reactions Allergy Substance Reaction Severity Start Date Concern Status Co de Code System HYDROCODONE Active 5489 RxNorm SUMATRIPTAN Active 12764 RxNorm LATEX Active 0720290 RxNorm Plan of Treatment Excision Mass 05/04/2022 COVID-19 Pre-op Screen 05/03/2022 Follow Up 04/30/2025 Epidural Steroid Injection Lumbar 02/23 OR Epidural 02/23/2025 Epidural Steroid Injection Lumbar 02/23 OR Epidural 02/23/2025 Encounters Encounter Diagnosis Start Date Code Code Sys tem Spondylosis without myelopat hy or radiculopathy, lumbar region 03/02/2025 SNOMED-CT Personal Care Team Section Performer Name Performer Role Active Date Inactive YESSENIA Moreland PCP - Primary care physician Progress Notes [facility] 03/02/2025 11:20 All Demographics Patient Name Age Sex Visit Number Admission Date/Time Attending Physician Date of Service Room and Bed Emergency Contact REINIER LOUISE 1990 34 years Female [id number] 03/02/2025 10:47 Hal Stallings 03/02/2025 07-OP YARED LOUISE - [id number] Pain Management Follow Up Vital Signs: Today Date/Time BP (mm/Hg) BP Position/Site MAP (mm/Hg) Heart Rate Pulse Site Resp Temp (C) Temp (F) SPO2% O2 L/min FiO2 EtCO2 (mm/Hg) O2 Device Blood Sugar Pain Score Height (cm) Height (in) Weight (kg) Weight (lbs/ozs) Scale BMI BSA Head Cir (cm) 03/02/2025 10:54 169/104 Sitting/Left Arm 126 105 Pulse Ox 36.6 Tympanic 97.9 Tympanic 98 % Room Air 21% 5 165.1 cm 65 in 149.23 kg 329.0 Stated 54.75 2.62 Chief Complaint: Lumbar radiculopathy History of Present Illness: Patient here today, for pain management follow up for TOBIAS L5-S1. Location: The pain is located in the back, right buttocks, spine, knee, and right-side neck. The pain does radiate right shoulder, hips, and buttocks. Quality: Patient rates the pain today, as a 5/10 at this time, and at times the pain may be as severe as a 10+/10. The pain may be described as sharp, stabbing, ache, and throbbing. Duration: Constant Timing: Patient reports this pain has been present since December 21. Alleviating Factors: Pain is relieved by laying. Associated Symptoms: Pain is worsened by lifting, bending, and movement. Pain History: Patient reports that they have had no recent falls. PHQ-9 Depression Screening Patient condition has declined since last screening Patient condition has improved since last screening No previous Screening Patient Declined Screening X Score has not changed significantly since last visit PHQ-9 Score Assessment: N/A: PHQ-9 not performed/Patient declined 4 0-4: Not an indicator of depression 5-9: Indicates mild depression 10-14: Indicates moderate depression 15-19: Indicates moderately severe depression 20-27: Indicates severe depression Depression Remission Indicated: X Yes, previous PHQ-9 score >9 in the past 12 months with current score <5 Previous PHQ-9 score or date is unknown Previous PHQ-9 score is 5 or higher CORIE-7 Score Assessment: N/A: CORIE-7 not performed/Patient declined 3 0-4: Minimal Anxiety 5-9: Mild Anxiety 10-14: Moderate Anxiety 15-21: [...] We will readdress this at subsequent appointments. Patient would benefit from IFC/NMES to reduce pain, muscle atrophy and spasms, and edema in addition to a multimodal approach for treatment of their condition. This device would decrease their use and exposure to pain medications including opioid based medications. This device is medically necessary and is being prescribed in compliance with multiple medical guidelines, including Official Disability Guidelines (ODG) and [employer] guidelines (ACOEM). Date of appointment: 03/02/25 Discussion: Patient reports 85% relief following TOBIAS. 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 Patient states she has taken far less medication since TOIBAS. Patient states she is pursuing bariatric surgery for weight loss. We discussed how long epidurals usually last for pain relief. We discussed healthy lifestyle and continuing exercises and stretches. Patient has quit smoking and is working on maintaining a healthy lifestyle. Patient also complains of trigger point of right trapezius that was causing her thumb and first 2 finger to go numb. She states this is better following TOBIAS. We discussed electrical stimulation to this and her lower back in order to prevent the need for further injections. Radiology imaging reviewed at appointment: yes - MRI from 01/08/25 Radiology: Imaging reviewed with patient Pain Treatment History: Conservative Measures Tried and Failed: Rest, heat, ice, stretching, home exercises Medications Trialed: Orphenadrine (muscle relaxer), oral steroids Previous Interventional Pain Procedures: None Plan Continue at home exercises and stretching Continue as needed Gabapentin 300mg TID Continue as needed Flexeril 5mg TID F/U 8 weeks Zynex Machine Problem List Migraine with aura Left lower quadrant pain Headache Low back pain Spinal stenosis Lumbar radiculopathy Surgery List Cholecystectomy, EGD, History of tonsillectomy, C section, EXC B9 LESION MRGN XCP SK TG T/A/L >4.0 CM, 05/04/2022 Colonoscopy, History of adenoidectomy, Smoking Status: Current every day smoker, Cessation Education: Allergy List HYDROCODONE, Medication SUMATRIPTAN, Medication LATEX, Environment Home Meds: Dose and Freq Medication Dosage Frequency oxyCODONE HCl-acetaminophen 5MG-325MG Oral Tablet 1 TABLET NEEDED EVERY 6 HOURS Mirena 52MG Intrauterine Insert, Extended Release 52 MILLIGRAMS DIRECTED ProAir HFA 0.09MG/1Actuation Inhalation Suspension 1 EACH NEEDED EVERY 6 HOURS Gabapentin 300MG Oral Capsule 1 CAPSULE THREE TIMES A DAY Nurtec ODT 75 MG Oral Tablet, Disintegrating 75 MG NEEDED Rosuvastatin 20MG Oral Tablet 20 MILLIGRAMS ONCE A DAY Venlafaxine HCl 75MG Oral Capsule, Extended Release 75 MILLIGRAMS ONCE A DAY busPIRone 15MG Oral Tablet 15 MILLIGRAMS TWICE A DAY oxyCODONE HCl-acetaminophen 5MG-325MG Oral Tablet 1 TABLET NEEDED TWICE A DAY Cyclobenzaprine HCl 5MG Oral Tablet 5 MILLIGRAMS THREE TIMES A DAY Escitalopram 20MG Oral Tablet 20 MILLIGRAMS ONCE A DAY hydrOXYzine Pamoate 25MG Oral Capsule 25 MILLIGRAMS NEEDED TWICE A DAY [facility] 04/16/2025 07:27 Please order flexion extension x rays of lumbar spine to rule out instability as I do not see we have one on record. Please refer to neuro/ortho spine surgeon for consultation. I will send in small amount of pain medications as well. 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 Consider GEOLOGICAL TECHNICAL OFFICER appointment for incontinence as well. Demographics Basic Patient Name Age Sex REINIER LOUISE 1990 34 years Female Date/Time: 04.07.2025 Multiple Calls: YES. Weekly. Caller Name: Reinier Louise Pt called and is concerned about her excruciating back pain. 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 The pain was better for awhile. Pain is so bad, in lower back. The urine issue has started and some nights I go thru 4 or 5 depends. The urine incontinence is due to pain. Bilateral hips are hurting, hard to raise from a sitting position. Taking muscle relaxers (Cyclobenzaprine 5mg TID PRN) TID because feels she needs the for relief; Taking scheduled, as ordered. Has 10 muscle relaxers left, from refill in January 2025. Taking Gabapentin, as ordered. 600mg, TID. Has 10 narcotic Medications left from refill on 02.20.2025. [facility] has not yet called the patient. Last OV care plan: gabapentin, Cyclobenzaprine, Zynex, Home Exercises, and follow up in 8 weeks. 8 week appt is 04/30/2025. confirmed appt. Pt asking if she needs to see a surgeon, due to the amt of pain and the urine incontinence. Her Mom has insisted she see a surgeon. Pt asking if she could have more medications, to get through until the next appt April 30. Please reply here. UPDATE ON 04/14/2025 at 1750: REINIER ASKING FOR XRAY TO BE SENT TO THE [facility], AT THIS TIME. SHE IS ASKING BECAUSE PCP IS ORDERING BILATERAL HIP RAYS, AT THIS TIME, WHICH WILL BE PERFORMED AT [facility]. MAY WE SEND THE LUMBAR X-RAY ORDER TO [facility]? ONLY IF patient prefers - She is considering [place] or [place]. Pt has a surgeon referral in [place], [place]. REFERRAL WAS SENT TO DR BATSHEVA MCLEAN, ON 04/13/2025. Date of SURGEON appt. is: NOT YET SET. Reinier is asking for more (frequent or stronger) than 5mg of Cyclobenzaprine PRN up to TID, if possible. Please send medications to [facility] in [place]. wants communications sent to surgeon office, via fax. NEED FAX NUMBER. wants office communication note sent to PCP. NEED TO COMPLETE, STILL. PLEASE NOTIFY THIS STAFF WHEN YOU REPLY. PLEASE RESPOND VIA WRITTEN REPLY. Addendum [phone] - Please order flexion extension X rays of lumbar spine to rule out instability as I do not see that we have one on record. Please refer to neuro/ortho spine surgeon for consultation. Addendum [phone] - I sent in 10mg flexeril TID PRN
--- OUTSIDE RECORDS SUMMARY | 2025-04-20 13:09 | XMS_ITS | Clinical Summary ---
Author Organization [facility] Address [address] [place] [address] Care Team Providers Care Site Engineer Name Role Phone Jae Ornelas MD Primary Care Provider [phone] Nadine Aiken MD Unavailable [phone] Allergies Active Allergy Reactions Criticality Noted Date [...] 3:22 PM CDT Height 162.6 cm (5' 4) 04/04/2023 3:22 PM CDT Body Mass Index [...] (08/06/2024 11:17 AM CDT) THIN PREP PAP [address] [id number] Department of Pathology Pathology Report CERVICAL/VAGINAL PAP SMEAR REPORT Name: JEN LOUISE Age: 1 1990 (Age: 33) Location: [facility] Sex: F Collected Date: 08/06/2024 [facility] #: [id number] Date Received: 08/07/2024 Date Reported: 08/11/2024 Provider: [...] not effective in detecting cervical adenocarcinoma. [facility] 08/06/2024 11:1 7 AM CDT 08/07/2024 11:17 AM CDT Comment:CERVICAL/ENDOCERVICA L us Destiny Hernandez MD PATHOLOGY/CYTOLOGY ORDER DELIO Final Result [facility] 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
--- OUTSIDE RECORDS SUMMARY | 2025-04-20 13:09 | XMS_ITS | Encounter Summary ---
Author Organization [facility] Address [facility] [place] [address] Care Team Providers Care Special Procedure Technologist Name Role Phone Jae Ornelas MD Primary Care Provider [phone] Nadine Aiken MD Unavailable [phone] Encounter Details Date Type Department Care Team (Late st Contact Info) Description 01/05/2018 Abstract [facility] CONVERSION [address] [place] [address] , Generic ConversionMD Social History Tobacco Use [...] documented as of this encounter Care Teams Special Procedure Technologist Relationship Specialty Start Date End Date Jae Ornelas MD [address] [place] [address] PCP - General FAMILY PRACTICE 06/09/18 Nadine Aiken MD [address] [place], [place] [phone] Consulting Physician CARDIOVASCULAR DISEASE 04/18/19 documented as of this encounter
--- OUTSIDE RECORDS SUMMARY | 2025-04-20 13:09 | XMS_ITS | Encounter Summary ---
Author Organization [facility] Address [address] [place] [id number] Care Team Providers Care Alliance Manager Name Role Phone Jae Ornelas MD Primary Care Provider [phone] Nadine Aiken MD Unavailable [phone] Encounter Details Date Type Department Care Team (Late st Contact Info) Description 03/29/2019 Abstract [facility] CONVERSION [address] [place] [address] , Generic ConversionMD Social History Tobacco Use [...] documented as of this encounter Care Teams Alliance Manager Relationship Specialty Start Date End Date Jae Ornelas MD [address] [place] [address] PCP - General FAMILY PRACTICE 06/09/18 Nadine Aiken MD [address] [place], [place] [phone] Consulting Physician CARDIOVASCULAR DISEASE 04/18/19 documented as of this encounter
--- OUTSIDE RECORDS SUMMARY | 2025-04-20 13:10 | XMS_ITS ---
Author Organization Unknown Address [address] [place] [address] [phone] Phone Care Team Providers Care Sample Driller Name Role Phone HARISH BARAJAS Attending Unavailable [...] em Smoking History Current every day smoker 236815653 SNOMED CT Sex Female Vital Signs Vital Sign Value Unit Piru Value Piru Unit Date/Time Recent/Initial? Code Code System Body Mass Index 54.75 kg/m2 02/23/2025 14:38 Most Recent 55674 -5 LOINC Body Mass Index 58.70 kg/m2 02/18/2025 10:04 Initial 15552 -5 LOINC Systolic Blood Pressure 131 mm[Hg] 02/23/2025 14:39 Initial 8480- 6 LOINC Diastolic Blood Pressure 97 mm[Hg] 02/23/2025 14:39 Initial 8462- 4 LOINC Body Surface Area 2.62 m2 02/23/2025 14:38 Most Recent 3140- 1 LOINC Body Surface Area 2.65 m2 02/18/2025 10:04 Initial 3140- 1 LOINC Height 165.100 0 cm 65.00 in 02/23/2025 14:38 Most Recent 8302- 2 LOINC Height 162.560 0 cm 64.00 in 02/18/2025 10:04 Initial 8302- 2 LOINC O2 Saturation 99 % 2024 14:39 Initial 55808 -5 LOINC Pulse 97.0 /min 02/23/2025 14:39 Initial 8867- 4 LOINC Respiration 18 /min 02/24/20 14:39 Initial 9279- 1 LOINC Temperature 36.4 Tammie 97.5 F 02/24/20 14:39 Initial 8310- [address] [facility] Weight 149.23 kg 329.00 lbs 02/23/2025 14:38 Most Recent 33743 -[address] [facility] Weight 155.13 kg 342.00 lbs 02/18/2025 10:04 Initial 64093 -[address] [facility] Medications Medication Start Date End Date Route Frequency Dose Code Code System Medication Instructions Home Meds oxyCODONE HCl-acetaminophen 5MG-325MG Oral Tablet 05/04/2022 03/02/2025 BY MOUTH NEEDED EVERY 6 HOURS 1 TABLET 1883408 RxNorm TAKE 1 TABLET BY MOUTH NEEDED EVERY 6 HOURS Mirena 52MG Intrauterine Insert, Extended Release 05/04/2022 Unknown INTRAUT ERINE DIRECTED 52 MILLIGRA MS 299337 RxNorm 52 MILLIGR AMS INTRAUT ERINE DIRECTE D ProAir HFA 0.09MG/1Actuation Inhalation Suspension 05/04/2022 Unknown INHALAT ION NEEDED EVERY 6 HOURS 1 unit(s) 327922 RxNorm 1 EACH INHALAT ION NEEDED EVERY 6 HOURS Cyclobenzaprine HCl 5MG Oral Tablet 02/05/2025 04/09/2025 BY MOUTH NEEDED 3 TIMES A DAY 1 TABLET 092775 RxNorm TAKE 1 TABLET BY MOUTH NEEDED 3 TIMES A DAY FOR MUSCLE SPASM Gabapentin 300MG Oral Capsule 02/05/2025 04/13/2025 BY MOUTH THREE TIMES A DAY 1 CAPSULE 988640 RxNorm TAKE 1 CAPSULE BY MOUTH THREE TIMES A DAY Nurtec ODT 75 MG Oral Tablet, Disintegrating 02/05/2025 Unknown ORAL NEEDED 75 MG 5197599 RxNorm TAKE 75 MG ORAL NEEDED Rosuvastatin 20MG Oral Tablet 02/05/2025 Unknown ORAL ONCE A DAY 20 MILLIGRA MS 404945 RxNorm TAKE 20 MILLIGR AMS ORAL ONCE A DAY Venlafaxine HCl 75MG Oral Capsule, Extended Release 02/05/2025 Unknown ORAL ONCE A DAY 75 MILLIGRA MS 792204 RxNorm TAKE 75 MILLIGR AMS ORAL ONCE A DAY busPIRone 15MG Oral Tablet 02/05/2025 Unknown ORAL TWICE A DAY 15 MILLIGRA MS 604851 RxNorm TAKE 15 MILLIGR AMS ORAL TWICE A DAY oxyCODONE HCl-acetaminophen 5MG-325MG Oral Tablet 02/20/2025 03/23/2025 BY MOUTH NEEDED TWICE A DAY 1 TABLET 7466896 RxNorm TAKE 1 TABLET BY MOUTH NEEDED TWICE A DAY FOR PAIN Cyclobenzaprine HCl 5MG Oral Tablet 02/23/2025 04/09/2025 ORAL THREE TIMES A DAY 5 MILLIGRA MS 436513 RxNorm TAKE 5 MILLIGR AMS ORAL THREE TIMES A DAY Escitalopram 20MG Oral Tablet 02/23/2025 Unknown ORAL ONCE A DAY 20 MILLIGRA MS 085393 RxNorm TAKE 20 MILLIGR AMS ORAL ONCE A DAY hydrOXYzine Pamoate 25MG Oral Capsule 02/23/2025 Unknown ORAL NEEDED TWICE A DAY 25 MILLIGRA MS 812083 RxNorm TAKE 25 MILLIGR AMS ORAL NEEDED TWICE A DAY oxyCODONE HCl-acetaminophen 5MG-325MG Oral Tablet 04/09/2025 04/09/2025 BY MOUTH NEEDED DAILY 1 TABLET 0474766 RxNorm TAKE 1 TABLET BY MOUTH NEEDED DAILY FOR PAIN oxyCODONE HCl-acetaminophen 5MG-325MG Oral Tablet 04/09/2025 04/23/2025 BY MOUTH NEEDED TWICE A DAY 1 TABLET 7809884 RxNorm TAKE 1 TABLET BY MOUTH NEEDED TWICE A DAY FOR PAIN Cyclobenzaprine HCl 5MG Oral Tablet 04/09/2025 Unknown ORAL THREE TIMES A DAY 5 MILLIGRA MS 189137 RxNorm TAKE 5 MILLIGR AMS ORAL THREE TIMES A DAY Cyclobenzaprine HCl 5MG Oral Tablet 04/09/2025 04/16/2025 BY MOUTH NEEDED 3 TIMES A DAY 1 TABLET 357022 RxNorm TAKE 1 TABLET BY MOUTH 3 TIMES DAILY NEEDED FOR MUSCLE SPASM Gabapentin 300MG Oral Capsule 04/13/2025 Unknown BY MOUTH THREE TIMES A DAY 1 CAPSULE 781833 RxNorm TAKE 1 CAPSULE BY MOUTH THREE TIMES A DAY Cyclobenzaprine 10MG Oral Tablet 04/16/2025 Unknown BY MOUTH NEEDED 3 TIMES A DAY 1 TABLET 946011 RxNorm TAKE 1 TABLET BY MOUTH NEEDED [...] physician. Reason For Referral No Data Found Procedures Procedure Name Date Status Code Code Syste m NJX DX/THER SBST INTRLMNR LMBR/SAC W/IMG GDN 02/23/2025 co mpleted 79928 CPT Problems Problem Start Date Resolved Date Status Code Code System MIGRAINE WITH AURA active 9433091 S NOMED-CT LEFT LOWER QUADRANT PAIN active 29185 6002 SNOMED-CT HEADACHE active 99109978 SNOMED-CT LOW BACK PAIN active 102735032 SNOMED -CT SPINAL STENOSIS active 64072744 SNOM ED-CT LUMBAR RADICULOPATHY active 160967516 SNOMED-CT Allergies and Adverse Reactions Allergy Substance Reaction Severity Start Date Concern Status Co de Code System HYDROCODONE Active 5489 RxNorm SUMATRIPTAN Active 46455 RxNorm LATEX Active 3997321 RxNorm Plan of Treatment Excision Mass 05/04/2022 COVID-19 Pre-op Screen 05/03/2022 Follow Up 04/30/2025 Epidural Steroid Injection Lumbar 02/23 OR Epidural 02/23/2025 Epidural Steroid Injection Lumbar 02/23 OR Epidural 02/23/2025 Encounters Encounter Diagnosis Start Date Code Code Sys tem Radiculopathy, lumbar region 02/23/2025 SNOMED-CT Personal Care Team Section Performer Name Performer Role Active Date Inactive YESSENIA Moreland PCP - Primary care physician Procedures Notes [facility] 02/23/2025 14:47 All Demographics Patient Name Age Sex Visit Number Admission Date/Time Attending Physician Date of Service Room and Bed Emergency Contact REINIER STEPHENS 1990 34 years Female [id number] 02/23/2025 14:02 Hal Stallings 02/23/2025 SDS-2 YARED STEPHENS - [id number] Pain Management Procedural Note I had an extensive discussion with the patient. We once again discussed the risks, benefits and alternatives to this procedure. I discussed the operative and postoperative course in detail. I discussed potential complications that we may encounter. The patient is electing to undergo this procedure. No guarantees were given or implied. I reviewed the history and physical, examined the patient this morning, no changes. Home Meds: Dose and Freq Medication Dosage Frequency Mirena 52MG Intrauterine Insert, Extended Release 52 [...] Tablet 1 TABLET NEEDED EVERY 6 HOURS Cyclobenzaprine HCl 5MG Oral Tablet 5 MILLIGRAMS THREE TIMES A DAY Escitalopram 20MG Oral Tablet 20 MILLIGRAMS ONCE A DAY hydrOXYzine Pamoate 25MG Oral Capsule 25 MILLIGRAMS NEEDED TWICE A DAY Lumbar Epidural Steroid Injection at the L5-S1 Level with Static Fluoroscopic Guidance Provider: FABIANO Alarcon Pre-Operative Diagnosis: Low Back Pain - M54.50 Lumbar Radiculopathy - M54.16 Lumbar or Sacral Epidural Injection (Caudal) - 47577 Post-Operative Diagnosis: Same Location of Procedure: [ X] OR [ ] Clinic Complications: None Moderate Sedation: Not Applicable to this Procedure Independent Observer with no other tasks present in the OR: Not Applicable to this Procedure Description of Procedure in Detail: The patient was placed prone on the procedure table. The lumbar interspace of L5 and S1 levels were visualized fluoroscopically in A/P projection angle. Using fluoroscopy our skin entry point was determined for L5-S1. The patient was prepped and draped in the usual fashion. A 25-gauge needle was then used to inject 2ml of 2% Lidocaine at skin entry site. A 20-gauge Touhy needle was advanced to the epidural space. This was done with static fluoroscopic guidance. The C arm was moved to lateral position to direct needle to epidural space. Once in epidural space 2ml of contrast dye was injected. Needle position was confirmed in A/P and lateral fluoroscopic images. I then injected 6ml of solution containing 2ml 0.5% PF Ropivacaine with 10mg of PF Decadron and 3ml of PF 0.9% NS. There were no complications, patient tolerated procedure well, there was no blood loss. Provider Signature: FABIANO Alarcon
== END 2025-04-20 12:57 | disposition home or self-care (01) ==
LOC: CHSIMG 12:57
PROVIDERS: PCP Family Medicine; Visit Provider Family Medicine
DX: M25.559 Pain in unspecified hip (principal)
CPT/HCPCS: 73521

== ENCOUNTER 2025-05-19 16:05 | Outpatient (CLI) | payer OTHER, SELFPAY ==
--- NOTE | ~2025-05-19 | XR_ITS ---
EXAMINATION: XR chest 2V Exam Date/Time: 05/19/2025 16:35 CDT HISTORY: preop screening Comparison: 07/21/2024. RESULT: Lines, tubes, and devices: None. Lungs and pleura: Clear. Low volumes with crowding in the lateral view Cardiomediastinal silhouette: Stable. Other: No acute osseous or upper abdominal finding. IMPRESSION: No acute cardiopulmonary process. Reviewed, dictated and finalized at location K.
--- OUTSIDE RECORDS SUMMARY | 2025-05-19 16:15 | XMS_ITS | Clinical Summary ---
Author Organization [facility] Address [address] [place] [address] Care Team Providers Care Contact Center Agent Name Role Phone Jae Ornelas MD Primary Care Provider [phone] Nadine Aiken MD Unavailable [phone] Allergies Active Allergy Reactions Criticality Noted Date [...] Years) (1 of 2 - PCV) 2007 HPV Vaccines (1 - 3-dose SCDM series) 2015 COVID-19 Vaccine ( season) 2024 10/20/2023, 09/06/2022, [...] Hepatitis B Vaccines Completed 08/26/1999, 03/25/1999, 02/25/1999 Meningococcal B Vaccine Aged Out No l [...] (08/06/2024 11:17 AM CDT) THIN PREP PAP [address] [address] Department of Pathology Pathology Report CERVICAL/VAGINAL PAP SMEAR REPORT Name: JEN LOUISE Age: 1 1990 (Age: 33) Location: [facility] Sex: F Collected Date: 08/06/2024 [facility] #: [id number] Date Received: 08/07/2024 Date Reported: 08/11/2024 Provider: [...] is not effective in detecting cervical adenocarcinoma. [facility] 08/06/2024 11:1 7 AM CDT 08/07/2024 11:17 AM CDT Comment:CERVICAL/ENDOCERVICA L us Destiny Hernandez MD PATHOLOGY/CYTOLOGY ORDER DELIO Final Result [facility] [address] [place] [address], * HUMAN PAPILLOMAVIRUS, HIGH-RISK TYPES (08/06/2024 8:00 AM CDT) SPECIMEN ENDOCERVIX 08/07/2024 4:00 PM CDT [facility] HPV DNA HIGH RISK NEGATIVE NEGATIVE 08/09/2024 12:34 AM CDT [facility] Comment:SEE CYTOLOGY REPORT 08/06/2024 8:00 AM CDT Destiny Hernandez MD PATHOLOGY/CYTOLOGY ORDER DELIO Final Result [facility] [address] [place] [address], from Last 3 Months or Most Recently Relevant to Health Maintenance Additional Health Concerns Infection Onset Date Last Indicated MRSA 11/06/2018 11/06/2018 Insurance [facility] Care Teams Contact Center Agent Relationship Specialty Start Date End Date Jae Ornelas MD [address] [place] [address] PCP - General FAMILY PRACTICE 06/09/18 Nadine Aiken MD [address] [place] [address] Consulting Physician CARDIOVASCULAR DISEASE 04/18/19
--- OUTSIDE RECORDS SUMMARY | 2025-05-19 16:15 | XMS_ITS | Encounter Summary ---
Author Organization [facility] Address [facility] [place] [address] Care Team Providers Care Supervisor Type Disk Quality Control Name Role Phone Jae Ornelas MD Primary Care Provider [phone] Nadine Aiken MD Unavailable [phone] Encounter Details Date Type Department Care Team (Late st Contact Info) Description 03/29/2019 Abstract SFL CONVERSION [address] [place] [address] , Generic ConversionMD Social History Tobacco Use [...] as of this encounter Care Teams Supervisor Type Disk Quality Control Relationship Specialty Start Date End Date Jae Ornelas MD [address] [place] [address] PCP - General FAMILY PRACTICE 06/09/18 Nadine Aiken MD [address] [place] [address] Consulting Physician CARDIOVASCULAR DISEASE 04/18/19 documented as of this encounter
--- OUTSIDE RECORDS SUMMARY | 2025-05-19 16:15 | XMS_ITS | Encounter Summary ---
Author Organization [facility] Address [facility] [place] [address] Care Team Providers Care Car Washer Name Role Phone Jae Ornelas MD Primary Care Provider [phone] Nadine Aiken MD Unavailable [phone] Encounter Details Date Type Department Care Team (Late st Contact Info) Description 01/05/2018 Abstract SJS CONVERSION [address] [place] [address] , Generic MD Matt Social History Tobacco Use Types Packs/Day Years [...] documented as of this encounter Care Teams Car Washer Relationship Specialty Start Date End Date Jae Ornelas MD [address] [place] [address] PCP - General FAMILY PRACTICE 06/09/18 Nadine Aiken MD [address] [place] [address] Consulting Physician CARDIOVASCULAR DISEASE 04/18/19 documented as of this encounter
--- NOTE | 2025-05-19 16:31 | ECG_ITS ---
Test Date: 2025-05-19 16:45:01 Measurements Intervals [place] Rate: 80 P: -80 DE: 154 QRS: 188 QRSD: 98 T: 210 QT: 392 QTc: 455 Interpretive Statements SINUS RHYTHM RIGHT TO LEFT ARM LEAD TRANSPOSITION CONSIDER PREVIOUS INFERIOR INFARCTION POOR R-WAVE PROGRESSION ABNORMAL ECG Compared to ECG 07/21/2024 18:13:48 ARM LEADS ARE REVERSED Q-WAVES ARE NOW SEEN IN INFERIOR LEADS Electronically Signed On 05-20-2025 08:21:54 CDT by Alexi Isabel M.D.
[2025-05-19 16:34] LABS: Hematocrit 41.7 % (35.0-49.0); Hemoglobin 13.0 g/dL (12.0-15.0); Immature Granulocyte Percent A 0.1 % (0.0-0.0); Lymphocytes Absolute Auto 2.00 K/mm3 (1.10-4.50); Mean Corpuscular HGB Conc 31.2 g/dL (32-36); Mean Corpuscular Hemoglobin 27.5 pg (27.0-31.0); Mean Corpuscular Volume 88.2 fL (78.0-102.0); Nucleated Red Blood Cells Absolute Auto 0.00 K/mm3 (0.00-0.00); Nucleated Red Blood Cells Perc 0.0 % (0-0.0); Platelet Count Result 285 K/mm3 (150-420); Red Blood Count 4.73 M/mm3 (4.20-5.40); White Blood Count 7.6 K/mm3 (4.8-10.8)
[2025-05-19 16:48] LABS: INR 0.9; Partial Thromboplastin Time 25.9 Sec (23.9-30.70); Prothrombin Time 10.3 Seconds (9.50-12.1)
[2025-05-19 17:08] LABS: Alanine Aminotransferase 33 U/L (6-35); Albumin Level 3.9 g/dL (3.5-5.1); Alkaline Phosphatase 29 U/L (38-126); Amylase 52 U/L (30-110); Anion Gap 4 mmol/L (4-12); Aspartate Amino Transferase 30 U/L (14-36); Bilirubin,Total 0.4 mg/dL (0.2-1.3); Blood Urea Nitrogen 22 mg/dL (7-17); Calcium 8.9 mg/dL (8.4-10.2); Carbon Dioxide 28 mmol/L (22-30); Chloride 108 mmol/L (98-107); Estimated Glomerular Filt Rate > 60; Glucose 79 mg/dL (65-110); Iron 60 ug/dL (37-170); Lipase 68 U/L (23-300); Osmolality Calculated 292 mOsm/kg (285-295); Potassium 4.4 mmol/L (3.4-5.0); Sodium 140 mmol/L (137-145); Total Protein 6.8 g/dL (6.3-8.2)
[2025-05-19 17:17] LABS: Percent Iron Saturation 19 % (20-50)
[2025-05-19 18:14] LABS: Vitamin B12 726.0 pg/mL (239-931)
[2025-05-20 11:21] LABS: Ferritin 52.00 ng/mL (6.24-137)
== END 2025-05-19 16:06 | disposition home or self-care (01) ==
LOC: CHSLAB 16:13
PROVIDERS: PCP Family Medicine
DX: R06.83 Snoring (principal); K92.1 Melena; R10.84 Generalized abdominal pain; E61.1 Iron deficiency; R94.31 Abnormal electrocardiogram [ECG] [EKG]
CPT/HCPCS: 36415; 71046; 80053; 82150; 82306; 82607; 82728; 82746; 83540; 83550; 83690; 85025; 85610; 85730; 93005

== ENCOUNTER 2025-05-20 17:27 | Outpatient (CLI) | payer OTHER, SELFPAY ==
--- OUTSIDE RECORDS SUMMARY | 2025-05-20 17:33 | XMS_ITS | Encounter Summary ---
Author Organization [facility] Address [facility] [place] [address] Care Team Providers Care Storage Battery Charger Name Role Phone Jae Ornelas MD Primary Care Provider [phone] Nadine Aiken MD Unavailable [phone] Encounter Details Date Type Department Care Team (Late st Contact Info) Description 01/05/2018 Abstract SJS CONVERSION [address] [place] [address] , Generic MD Matt Social History Tobacco [...] documented as of this encounter Care Teams Storage Battery Charger Relationship Specialty Start Date End Date Jae Ornelas MD [address] [place] [address] PCP - General FAMILY PRACTICE 06/09/18 Nadine Aiken MD [address] [place] [address] Consulting Physician CARDIOVASCULAR DISEASE 04/18/19 documented as of this encounter
--- OUTSIDE RECORDS SUMMARY | 2025-05-20 17:33 | XMS_ITS | Clinical Summary ---
Author Organization [facility] Address [address] [place] [address] Care Team Providers Care Director Style Name Role Phone Jae Ornelas MD Primary Care Provider [phone] Nadine Aiken MD Unavailable [phone] Allergies Active Allergy Reactions Criticality Noted Date [...] (08/06/2024 11:17 AM CDT) THIN PREP PAP [address] [address] Department of Pathology Pathology Report CERVICAL/VAGINAL PAP SMEAR REPORT Name: JEN LOUISE Age: 1 1990 (Age: 33) Location: [facility] Sex: F Collected Date: 08/06/2024 [facility] #: [id number] Date Received: 08/07/2024 Date Reported: 08/11/2024 Provider: [...] is not effective in detecting cervical adenocarcinoma. [facility] 08/06/2024 11:1 7 AM CDT 08/07/2024 11:17 AM CDT Comment:CERVICAL/ENDOCERVICA L us Destiny Hernandez MD PATHOLOGY/CYTOLOGY ORDER DELIO Final Result [facility] [address] [facility] [place] [address], * HUMAN PAPILLOMAVIRUS, HIGH-RISK TYPES (08/06/2024 8:00 AM CDT) SPECIMEN ENDOCERVIX 08/07/2024 4:00 PM CDT [facility] HPV DNA HIGH RISK NEGATIVE NEGATIVE 08/09/2024 12:34 AM CDT [facility] Comment:SEE CYTOLOGY REPORT 08/06/2024 8:00 AM CDT Destiny Hernandez MD PATHOLOGY/CYTOLOGY ORDER DELIO Final Result [facility] [address] [place] [address], from Last 3 Months or Most Recently Relevant to Health Maintenance Additional Health Concerns Infection Onset Date Last Indicated MRSA 11/06/2018 11/06/2018 Insurance [facility] Care Teams Director Style Relationship Specialty Start Date End Date Jae Ornelas MD [address] [place] [address] PCP - General FAMILY PRACTICE 06/09/18 Nadine Aiken MD [address] [place] [address] Consulting Physician CARDIOVASCULAR DISEASE 04/18/19
--- OUTSIDE RECORDS SUMMARY | 2025-05-20 17:33 | XMS_ITS | Encounter Summary ---
Author Organization [facility] Address Count includes the [facility] [place] [address] Care Team Providers Care Jewel Bearing Driller Name Role Phone Jae Ornelas MD Primary Care Provider [phone] Nadine Aiken MD Unavailable [phone] Encounter Details Date Type Department Care Team (Late st Contact Info) Description 03/29/2019 Abstract SFL CONVERSION [address] [place] [address] , Generic ConversionMD Social History Tobacco Use [...] documented as of this encounter Care Teams Jewel Bearing Driller Relationship Specialty Start Date End Date Jae Ornelas MD [address] [place] [address] PCP - General FAMILY PRACTICE 06/09/18 Nadine Aiken MD [address] [place] [address] Consulting Physician CARDIOVASCULAR DISEASE 04/18/19 documented as of this encounter
== END 2025-05-20 17:28 | disposition home or self-care (01) ==
PROVIDERS: PCP Family Medicine; Visit Provider Family Medicine
DX: K92.1 Melena (principal); R10.84 Generalized abdominal pain
CPT/HCPCS: 87045; 87046; 87427

== ENCOUNTER 2025-05-27 15:33 | Outpatient (CLI) | payer OTHER, SELFPAY ==
--- OUTSIDE RECORDS SUMMARY | 2025-05-27 15:39 | XMS_ITS | Encounter Summary ---
Author Organization [facility] Address [facility] [place] [address] Care Team Providers Care Chief Yeoman Name Role Phone Jae Ornelas MD Primary Care Provider [phone] Nadine Aiken MD Unavailable [phone] Encounter Details Date Type Department Care Team (Late st Contact Info) Description 03/29/2019 Abstract SFL CONVERSION [address] [place] [address] , Generic ConversionMD Social History Tobacco Use [...] documented as of this encounter Care Teams Chief Yeoman Relationship Specialty Start Date End Date Jae Ornelas MD [address] [place] [address] PCP - General FAMILY PRACTICE 06/09/18 Nadine Aiken MD [address] [place] [address] Consulting Physician CARDIOVASCULAR DISEASE 04/18/19 documented as of this encounter
--- OUTSIDE RECORDS SUMMARY | 2025-05-27 15:39 | XMS_ITS | Encounter Summary ---
Author Organization [facility] Address [facility] [place] [address] Care Team Providers Care Encapsulator Name Role Phone Jae Ornelas MD Primary Care Provider [phone] Nadine Akien MD Unavailable Encounter Details Date Type Department Care Team (Late st Contact Info) Description 01/05/2018 Abstract SJS CONVERSION [address] [place] [address] , Generic MD Matt Social History Tobacco [...] documented as of this encounter Care Teams Encapsulator Relationship Specialty Start Date End Date Jae Ornelas MD [address] [place] [address] PCP - General FAMILY PRACTICE 06/09/18 Nadine Aiken MD [address] [place] [address] Consulting Physician CARDIOVASCULAR DISEASE 04/18/19 documented as of this encounter
--- OUTSIDE RECORDS SUMMARY | 2025-05-27 15:39 | XMS_ITS | Clinical Summary ---
Author Organization [facility] Address [address] [place] [address] Care Team Providers Care Seam Presser Name Role Phone Jae Ornelas MD Primary Care Provider [phone] Nadine Aiken MD Unavailable [phone] Allergies Active Allergy Reactions Criticality Noted Date [...] (08/06/2024 11:17 AM CDT) THIN PREP PAP [address] [address] Department of Pathology Pathology Report CERVICAL/VAGINAL PAP SMEAR REPORT Name: JEN LOUISE Age: 1 1990 (Age: 33) Location: [facility] Sex: F Collected Date: 08/06/2024 [facility] #: [id number] Date Received: 08/07/2024 Date Reported: 08/11/2024 Provider: [...] is not effective in detecting cervical adenocarcinoma. [facility] 08/06/2024 11:1 7 AM CDT 08/07/2024 11:17 AM CDT Comment:CERVICAL/ENDOCERVICA L us Destiny Hernandez MD PATHOLOGY/CYTOLOGY ORDER DELIO Final Result [facility] [address] [facility] [place] [address], * HUMAN PAPILLOMAVIRUS, HIGH-RISK TYPES (08/06/2024 8:00 AM CDT) SPECIMEN ENDOCERVIX 08/07/2024 4:00 PM CDT [facility] HPV DNA HIGH RISK NEGATIVE NEGATIVE 08/09/2024 12:34 AM CDT [facility] Comment:SEE CYTOLOGY REPORT 08/06/2024 8:00 AM CDT Destiny Hernandez MD PATHOLOGY/CYTOLOGY ORDER DELIO Final Result [facility] [address] [place] [address], from Last 3 Months or Most Recently Relevant to Health Maintenance Additional Health Concerns Infection Onset Date Last Indicated MRSA 11/06/2018 11/06/2018 Insurance [facility] Care Teams Seam Presser Relationship Specialty Start Date End Date Jae Ornelas MD [address] [place] [address] PCP - General FAMILY PRACTICE 06/09/18 Nadine Aiken MD [address] [place] [address] Consulting Physician CARDIOVASCULAR DISEASE 04/18/19
== END 2025-05-27 15:34 | disposition home or self-care (01) ==
PROVIDERS: PCP Family Medicine; Visit Provider Family Medicine
DX: K92.1 Melena (principal); R10.84 Generalized abdominal pain
CPT/HCPCS: 87045; 87046; 87427

== ENCOUNTER 2025-06-06 20:13 | Outpatient (CLI) | payer OTHER, SELFPAY ==
--- OUTSIDE RECORDS SUMMARY | 2025-06-06 20:17 | XMS_ITS | Encounter Summary ---
Author Organization [facility] Address [facility] [place] [address] Care Team Providers Care Legal Practice Manager Name Role Phone Jae Ornelas MD Primary Care Provider [phone] Nadine Aiken MD Unavailable [phone] Encounter Details Date Type Department Care Team (Late st Contact Info) Description 03/29/2019 Abstract SFL CONVERSION [address] [place] [address] , Generic ConversionMD Social History Tobacco Use [...] documented as of this encounter Care Teams Legal Practice Manager Relationship Specialty Start Date End Date Jae Ornelas MD [address] [place] [address] PCP - General FAMILY PRACTICE 06/09/18 Nadine Aiken MD [address] [place] [address] Consulting Physician CARDIOVASCULAR DISEASE 04/18/19 documented as of this encounter
--- OUTSIDE RECORDS SUMMARY | 2025-06-06 20:17 | XMS_ITS | Encounter Summary ---
Author Organization [facility] Address [facility] [place] [address] Care Team Providers Care Senior Qa Engineer Name Role Phone Jae Ornelas MD Primary Care Provider [phone] Nadine Aiken MD Unavailable [phone] Encounter Details Date Type Department Care Team (Late st Contact Info) Description 01/05/2018 Abstract SJS CONVERSION [address] [place] [address] , Generic MD Matt Social History Tobacco [...] documented as of this encounter Care Teams Senior Qa Engineer Relationship Specialty Start Date End Date Jae Ornelas MD [address] [place] [address] PCP - General FAMILY PRACTICE 06/09/18 Nadine Aiken MD [address] [place] [address] Consulting Physician CARDIOVASCULAR DISEASE 04/18/19 documented as of this encounter
--- OUTSIDE RECORDS SUMMARY | 2025-06-06 20:17 | XMS_ITS | Clinical Summary ---
Author Organization [facility] Address [address] [place] [address] Care Team Providers Care Leasing Consultant Name Role Phone Jae Ornelas MD Primary Care Provider [phone] Nadine Aiken MD Unavailable [phone] Allergies Active Allergy Reactions Criticality Noted Date [...] (08/06/2024 11:17 AM CDT) THIN PREP PAP [address] [address] Department of Pathology Pathology Report CERVICAL/VAGINAL PAP SMEAR REPORT Name: JEN LOUISE Age: 1 1990 (Age: 33) Location: [facility] Sex: F Collected Date: 08/06/2024 [facility] #: [id number] Date Received: 08/07/2024 Date Reported: 08/11/2024 Provider: [...] Irregular Contraceptive History: IUD SPECIMEN SUBMITTED CERVICAL/ENDOCERVI DRAIUS Specimen Received:1 Thin Prep Vial, Image Assisted Pap (SMD) Please note: The Pap smear is not a diagnostic test. It is a screening test. Negative results on combined screening (Pap test and HPV-DNA) have a high negative predictive value (99.1-100 percent) for cervical cancer. The pap test is not effective in detecting cervical adenocarcinoma. [facility] 08/06/2024 11:1 7 AM CDT 08/07/2024 11:17 AM CDT Comment:CERVICAL/ENDOCERVICA L us Destiny Hernandez MD PATHOLOGY/CYTOLOGY ORDER DELIO Final Result [facility] [address] [facility] [address], * HUMAN PAPILLOMAVIRUS, HIGH-RISK TYPES (08/06/2024 8:00 AM CDT) SPECIMEN ENDOCERVIX 08/07/2024 4:00 PM CDT [facility] HPV DNA HIGH RISK NEGATIVE NEGATIVE 08/09/2024 12:34 AM CDT [facility] Comment:SEE CYTOLOGY REPORT 08/06/2024 8:00 AM CDT Destiny Hernandez MD PATHOLOGY/CYTOLOGY ORDER DELIO Final Result [facility] [address] [place] [address], from Last 3 Months or Most Recently Relevant to Health Maintenance Additional Health Concerns Infection Onset Date Last Indicated MRSA 11/06/2018 11/06/2018 Insurance [facility] Care Teams Leasing Consultant Relationship Specialty Start Date End Date Jae Ornelas MD [address] [place] [address] PCP - General FAMILY PRACTICE 06/09/18 Nadine Aiken MD [address] [place] [address] Consulting Physician CARDIOVASCULAR DISEASE 04/18/19
--- NOTE | 2025-06-25 22:34 | P.SLEEP_ITS ---
Sleep Study Date of Study: 06/06/25 Ordering Provider: Dory Novoa Interpreting Physician: Christina Arauz MD Sleep Study Type: Polysomnogram Height: 1.68 m Weight: 159.302 kg Body Mass Index: 56.7 Neck Circumference (inches): 17 Cowgill: 17 Reason for Sleep Study Hypersomnolence, loud snoring Sleep History Jen Louise is a 34-year-old woman with excessive daytime sleepiness. She never awakens from sleep short of breath. She occasionally wakes at night with heartburn, belching or coughing.??She always snores,and this is constantly loud enough that others complain. She occasionally has trouble sleeping when she has a cold. She occasionally wakes up gasping for breath during the night. She rarely has breathing problems at night. She always sweats excessively at night. She constantly notices her heart pounding or beating irregularly during the night. She always falls asleep during the day. She never falls asleep involuntarily, never falls asleep while driving. She frequently experiences loss of muscle tone with strong emotion. She never feels paralyzed on waking or falling asleep. She rarely experiences vivid dreams upon waking or falling asleep. She never feels afraid of going to sleep. She never has nightmares. She rarely recalls her dreams. She constantly has thoughts racing through her mind. She frequently feels sad or depressed. She frequently feels anxiety. She frequently notices parts of her body jerk. She frequently kicks during the nigh t. She frequently feels crawling or aching feelings in her legs. She constantly feels leg pain at night. She never has morning jaw pain, nor does she grind her teeth at night. She frequently feels bothered by pain during the day, is occasionally awakened by pain during the night. she has significant back pain She constantly wakes up feeling stiff in the morning, frequently wakes feeling sore or achy in the morning. She constantly awakens with pain in her neck, spine, or joints. she reports having fainting episodes in the past, vasovagal response due to stress. She has migraines, depression, anxiety and bowel disturbances. She has had her gallbladder removed. Normal bedtime is Between 11:00 p.m. and 12:00 p.m., falling asleep within 30- 60 minutes, waking 2-3 times at night due to need to urinate and pain. She wakes at 6:00 a.m., reports getting between 5 and 6 hours of sleep per night. On weekends, bedtime is later, between 2 and 3:00 a.m. and she wakes between 9 and 10:00 a.m.. She takes naps in the afternoon or evening when she is not working. A short nap lasting 10-15 minutes is not refreshing. She is usually drowsy for 3 hours after waking. Habits:??Tobacco: former smoker, quit 5 months ago Caffeine: none Alcohol: none Recreational substances: none [facility] Past Medical History Medical History Arthritis Chronic headaches Toe fracture Anxiety Surgical History Surgical History Previous section History of myringotomy Social History Social History Smoking packs per day: 1.5 Smoking cigarettes per day: 30.0 Smoking status: Former smoker Smoking end date: 07/21/25 Alcohol intake: current Alcohol use details: Occasional Substance use: never Do You Feel Safe in your Home?: Yes Lack of Transportation: No Lack of Food: Never True Current Housing: I Have Housing Concerned About Future Housing: No Difficulty Paying Gas/Electric Bills: No Difficulty Paying for Meds: No Currently Unemployed: No Education: Trade/Vocational Certificate Difficulty w/ Childcare or Family Care: No Living arrangements: with family Medications Home Medications ?Medication ?Instructions ?Recorded ?Confirmed ?Type buspirone 10 mg tablet 15 mg PO BID 01/29/23 History escitalopram oxalate 20 mg tablet 20 mg PO DAILY 01/2905/28/25 History albuterol sulfate 90 mcg/actuation 2 puff inhalation P RN PRN 07/21/24 05/28/25 History aerosol inhaler Shortness Of Breath Or Wheez ing hydroxyzine pamoate 25 mg capsule 25 mg PO PRN PRN Anx iety 07/21/24 05/28/25 History ondansetron HCl 8 mg tablet 8 mg PO PRN PRN Nausea And Vomiting 07/21/24 05/28/25 History methylprednisolone 4 mg tablets in See Rx Instructions PO .COMPLEX 12/23/24 05/28/25 Rx a dose pack (Medrol (Iker)) #21 ea orphenadrine citrate 100 mg 100 mg PO BID PRN pain #20 tabs 12/23/24 05/28/25 Rx tablet,extended release Sleep Procedure A full night polysomnogram using the Geelbe multi-channel system recorded the standard physiologic parameters including EEG, EOG, submentalis EMG, anterior tibialis EMG, EKG, body position, nasal and oral airflow using nasal pressure sensor and thermistor. Respiratory parameters of chest and abdominal movements were recorded with Respiratory Inductance Plethysmography belts. Oxygen saturation was recorded by pulse oximetry. Video monitoring was a lso performed. Sleep stages, periodic limb movements, and EEG arousals were scored in 30 second epochs according to the criteria of the AASM Scoring Manual. The Apnea-Hypopnea Index was calculated using [facility] guidelines for definition of hypopnea while scoring respiratory events. She did not meet criteria for a split night study early enough in the night, so this was conducted as a full night polysomnogram. She did not take a sleep aid at the beginning of the study. She used one pillow, and had one trip to the bathroom during the night. Sleep Architecture The total recording time was 390.9 minutes. The total sleep time was 347.0 minutes. Sleep latency was 9.6 minutes. REM latency was 130.0 minutes. Sleep efficiency was 88.8%. The patient had 18 awakenings for an awakening index of 3.1. Wake after sleep onset time was 34.5 minutes. The patient spent 14.5 minutes, 4.2% of total sleep time in Stage N1. The patient spent 126.0 minutes, 36.3% in Stage N2. The patient spent 120.0 minutes, 34.6% in Stage N3. The patient spent 86.5 minutes, 24.9% in Stage REM sleep. Respiratory Analysis The patient had 16 hypopneas, no obstructive apneas, no mixed apneas, and 5 central apneas for an overall Apnea Hypopnea Index of 3.6 using a 4% desaturation criteria which is consistent with Medicare guidelines. Using a 3% criteria which is acceptable for those who are not required to use Medicare criteria, her apnea hypopnea index is 5.2 which is consistent with mild obstructive sleep apnea. Her supine index is 7.9 and her non-supine apnea hypopnea index is 4.0. The REM Apnea Hypopnea Index was 6.2. The NREM Apnea Hypopnea Index was 3.5. The patient had a Central Apnea Hypopnea Index of 0.9. There were no Respiratory Effort Related Arousals. The Respiratory Disturbance Index is 5.0 events per hour. There was no evidence of Lew-Jaimes Respirations. Arousals There were 40 total arousals for an arousal index of 6.9. There were 18 spontaneous arousals for an index of 3.1. There were 2 arousals due to respiratory events for an index of 0.3. There were no arousals due to periodic limb movements. There were 1 arousal due to isolated limb movements for an index of 0.2. Periodic Limb Movements The patient had 4 isolated limb movements with an index of 0.7. The patient had no periodic limb movements. Patient had a total of 4 limb movements with a total limb movement index of 0.7. Oximetry Data The patient had an average oxygen saturation of 93.6% in sleep with a minimum oxygen saturation of 86% and a maximum oxygen saturation of 98%. The patient had 21 oxygen desaturations that were 4% or greater resulting in an Oxygen Desaturation Index of 3.6. The patient spent 0.3 minutes, 0.1% of total sleep time with an oxygen saturation below 88%. Snoring Profile Snoring was moderate to loud. Cardiac Profile The EKG showed normal sinus rhythm, average pulse rate of 84.3 bpm with a minimum pulse of rate of 70 bpm and a maximum pulse rate of 104 bpm. No arrhythmias noted. EEG Profile Unremarkable, no evidence of seizures. Assessment and Plan Assessment and Plan (1) Obstructive sleep apnea: Code(s): G47.33 - Obstructive sleep apnea (adult) (pediatric) Status: Acute Assessment and Plan: This basic nocturnal polysomnogram on 06/06/2024 shows mild obstructive sleep apnea, the apnea-hypopnea index using a 3% criteria is 5.2, desaturation 86% and moderate to loud snoring was noted. The patient has comorbidities including anxiety and depression. She did not meet criteria early enough in the night to proceed with a split night study. She is a candidate for treatment with positive airway pressure. I recommend that this patient be prescribed Resmed AirSense 11 AutoPAP 5-15 cm H2O, CPAP mask/filters/tubing and humidifier chamber. This should be used with all episodes of sleep. Compliance should be reviewed within 31-90 days of starting therapy for usage greater than 4 hours per night greater than 70% of the nights. The patient should be asked about symptoms such as excessive daytime sleepiness, quality of sleep, decreased nocturia, increased mental functioning such as memory, mood, and concentration. Her BMI is 56.7. Weight management is advised. Clinical data suggests that weight loss of 10% can reduce the severity of respiratory events and snoring and improve AHI by as much as 25%. Elevated weight alone can cause excessive daytime sleepiness independently obstructive sleep apnea. Sleep hygiene measures are recommended. The patient does not appear to be allowing herself 7 to 8 hours of sleep at night which is what normal adult need to feel refreshed in the morning. Her normal bedtime is between 11-12 pm, and she wakes at 6:00 a.m. She says that she falls asleep within 30-60 minutes, and on this test, she said that she was awake for more than an hour before falling asleep. She fell asleep within 9 minutes, so she is overestimating how long it takes her to fall asleep. She takes naps which may be contributing to a long sleep latency at home. She had a normal sleep latency on this test. 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 Recommendations to improve sleep quality include: ? Practice a bedtime routine and keep the same sleep schedule including bedtime and wake up time, even on the weekends. Consistency makes it much easier to fall asleep and wake easily. ? If you have trouble sleeping at night, avoid naps, especially in the late afternoon. However, short naps lasting approximately 20 minutes can help alleviate daytime fatigue, sleepiness, and even provide cognitive benefit. Naps longer than 30 minutes can cause sleep inertia, a period of reduced alertness and cognitive performance after waking. ? Exercise daily. ? Maintain a sleep environment conducive to sleep. The bedroom should be comfortably cool. In population studies, nocturnal environmental light and noise significantly impact sleep quality and quantity. Use of blackout curtains, ear plugs, or sound machines may help promote an optimal sleep environment for individuals with sleep disruptions due to environmental stimuli. ? Sleep on a comfortable mattress and pillows. ? Regular bright light exposure in the mornings may help to maximize alertness and maintain a regular circadian rhythm. Studies in extreme latitudes where sunlight is minimal in the winter have found that an hour of exposure to white light in the morning helped subjects go to sleep earlier and wake earlier. Exposure to blue light in the morning may have more robust effects on the stability of the circadian rhythm and has been shown to improve daytime fatigue and sleepiness. ? Avoid cigarettes, caffeine, and heavy meals in the evening. While alcohol use does seem to reduce the time it takes to fall asleep, studies have reported that evening alcohol intake can cause more waking time or light sleep in the second half of the night and reduce self-reported sleep quality. Evening nicotine is associated with lower sleep efficiency and more awake time during the night. ? Wind down with quiet activities that may promote sleep, such as reading with a dim light. Avoid use of electronics at least 30 minutes before habitual bedtime and in the middle of the night if nocturnal awakenings occur. The blue light emitted from computer screens and hand-held devices can suppress natural melatonin production, resulting in difficulty falling asleep; however, the exact duration of use and intensity of lighting that cause this effect are variable in the literature. ? If you cannot sleep, do not look at a clock. Go into another room and do something relaxing until you feel drowsy enough to fall asleep again. Then return to bed. (2) Restless legs syndrome (RLS): Code(s): G25.81 - Restless legs syndrome Status: Acute Assessment and Plan: Her sleep questionnaire indicates that she has frequent kicking at night, frequently feels crawling or aching feelings in her legs. She constantly feels leg pain at night. On this test, she did not have excessive kicking. Her ferritin level was 52 on May 19, 2025. This is below ideal in the setting of RLS. She has criteria for restless legs syndrome. She has a low ferritin level recently. I recommend iron replacement and rechecking a ferritin level in 3-4 months. Ferritin should be 75 ng/mL or greater. If ferritin is below this, iron supplementation should be given to achieve ferritin of 75 ng/mL. There are nonpharmacologic methods to treat limb movements including daily exercise, stretching calf muscles before bed, avoiding excessive amounts of caffeine and alcohol, vitamin B supplementation, magnesium lotion massaged into legs before bed, and use of a weighted blanket. Pharmacologic therapy is very effective for restless legs syndrome and limb movements during sleep and may include [id number] voltage-gated calcium channel ligands such as gabapentin which is preferable to dopaminergic agents which can have augmentation. Data The data obtained during this sleep study is adequate for interpretation. Certification This sleep study has been reviewed by a board certified sleep medicine physician.
[2025-06-25 23:11] VITALS: BMI 56.7
== END 2025-06-07 06:47 | disposition home or self-care (01) ==
PROVIDERS: PCP Family Medicine
DX: G25.81 Restless legs syndrome (principal); G47.33 Obstructive sleep apnea (adult) (pediatric)
CPT/HCPCS: 95810

== ENCOUNTER 2025-07-10 15:41 | Outpatient (CLI) | payer OTHER, SELFPAY ==
--- OUTSIDE RECORDS SUMMARY | 2025-07-10 15:45 | XMS_ITS | Clinical Summary ---
Author Organization [facility] Address [address] [place] [address] Care Team Providers Care Flame Planer Name Role Phone Jae Ornelas MD Primary Care Provider [phone] Nadine Aiken MD Unavailable [phone] Allergies Active Allergy Reactions Criticality Noted Date [...] SCDM series) 2015 COVID-19 Vaccine ( season) 2025 10/20/2023, 09/06/2022, 12/24/2021, Additional history exists Cervical [...] (08/06/2024 11:17 AM CDT) THIN PREP PAP [address] [address] Department of Pathology Pathology Report CERVICAL/VAGINAL PAP SMEAR REPORT Name: JEN LOUISE Age: 1 1990 (Age: 33) Location: [facility] Sex: F Collected Date: 08/06/2024 [facility] #: [id number] Date Received: 08/07/2024 Date Reported: 08/11/2024 Provider: [...] Result [facility] [address] [facility] [employer] [place] [address], * HUMAN PAPILLOMAVIRUS, HIGH-RISK TYPES (08/06/2024 8:00 AM CDT) SPECIMEN ENDOCERVIX 08/07/2024 4:00 PM CDT [facility] HPV DNA HIGH RISK NEGATIVE NEGATIVE 08/09/2024 12:34 AM CDT [facility] Comment:SEE CYTOLOGY REPORT 08/06/2024 8:00 AM CDT Destiny Hernandez MD PATHOLOGY/CYTOLOGY ORDER DELIO Final Result [facility] [address] 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
--- OUTSIDE RECORDS SUMMARY | 2025-07-10 15:45 | XMS_ITS | Encounter Summary ---
Author Organization [facility] Address [facility] [place] [address] Care Team Providers Care Licensed Mass Real Estate Appraiser Name Role Phone Jae Ornelas MD Primary Care Provider [phone] Nadine Aiken MD Unavailable [phone] Encounter Details Date Type Department Care Team (Late st Contact Info) Description 03/29/2019 Abstract [facility] CONVERSION [address] [place] [address] , Generic ConversionMD Social History Tobacco Use [...] documented as of this encounter Care Teams Licensed Mass Real Estate Appraiser Relationship Specialty Start Date End Date Jae Ornelas MD [address] [place] [address] PCP - General FAMILY PRACTICE 06/09/18 Nadine Aiken MD [address] [place] [address] Consulting Physician CARDIOVASCULAR DISEASE 04/18/19 documented as of this encounter
--- OUTSIDE RECORDS SUMMARY | 2025-07-10 15:45 | XMS_ITS | Encounter Summary ---
Author Organization [facility] Address [facility] [place] [address] Care Team Providers Care Die Storage Worker Name Role Phone Jae Ornelas MD Primary Care Provider [phone] Nadine Aiken MD Unavailable [phone] Encounter Details Date Type Department Care Team (Late st Contact Info) Description 01/05/2018 Abstract [facility] CONVERSION [address] [place] [address] , Generic MD Matt Social History Tobacco [...] documented as of this encounter Care Teams Die Storage Worker Relationship Specialty Start Date End Date Jae Ornelas MD [address] [place] [address] PCP - General FAMILY PRACTICE 06/09/18 Nadine Aiken MD [address] [place] [address] Consulting Physician CARDIOVASCULAR DISEASE 04/18/19 documented as of this encounter
[2025-07-10 16:25] LABS: Strep Group A RT-PCR NOT DETECTED (Negative)
[2025-07-10 16:39] LABS: Influenza A QL RT-PCR Negative (Negative); Influenza B QL RT-PCR Negative (Negative); SARS-CoV-2 RNA PCR Negative (Negative)
== END 2025-07-10 15:42 | disposition home or self-care (01) ==
LOC: CHSLAB 15:42
PROVIDERS: PCP Family Medicine; Visit Provider Nurse Practitioner Family
DX: R09.81 Nasal congestion (principal); Z20.822 Contact with and (suspected) exposure to COVID-19
CPT/HCPCS: 87636; 87651

== ENCOUNTER 2025-08-25 01:02 | Day surgery (SDC) | payer OTHER, SELFPAY ==
[2025-08-21 10:18] VITALS: BMI 57.7
--- OUTSIDE RECORDS SUMMARY | 2025-08-25 01:05 | XMS_ITS | Clinical Summary ---
Author Organization [facility] Address [address] [place] [address] Care Team Providers Care Circular Tank Cooper Name Role Phone Jae Ornelas MD Primary Care Provider [phone] Nadine Aiken MD Unavailable [phone] Allergies Active Allergy Reactions Criticality Noted Date [...] 3-dose SCDM series) 2015 COVID-19 Vaccine ( - season) 2025 10/20/2023, 09/06/2022, 12/24/2021, Additional history exists Influenza Adult (#1) 2025 10/20/2023, 09/06/2022, 06/29/2021, Additional history exists Cervical [...] Hepatitis B Vaccines Completed 08/26/1999, 03/25/1999, 02/25/1999 Hepatitis A Vaccines Aged Out No long er eligible based on patient's age to complete [...] (08/06/2024 11:17 AM CDT) THIN PREP PAP [address] [address] Department of Pathology Pathology Report CERVICAL/VAGINAL PAP SMEAR REPORT Name: JEN LOUISE Age: 1 1990 (Age: 33) Location: [facility] Sex: F Collected Date: 08/06/2024 [facility] #: [id number] Date Received: 08/07/2024 Date Reported: 08/11/2024 Provider: [...] is not effective in detecting cervical adenocarcinoma. [facility] 08/06/2024 11:1 7 AM CDT 08/07/2024 11:17 AM CDT Comment:CERVICAL/ENDOCERVICA L us Destiny Hernandez MD PATHOLOGY/CYTOLOGY ORDER DELIO Final Result [facility] [address] [place] [address], * HUMAN PAPILLOMAVIRUS, HIGH-RISK TYPES (08/06/2024 8:00 AM CDT) SPECIMEN ENDOCERVIX 08/07/2024 4:00 PM CDT [facility] HPV DNA HIGH RISK NEGATIVE NEGATIVE 08/09/2024 12:34 AM CDT [facility] Comment:SEE CYTOLOGY REPORT 08/06/2024 8:00 AM CDT Destiny Hernandez MD PATHOLOGY/CYTOLOGY ORDER DELIO Final Result [facility] [address] [place] [address], from Last 3 Months or Most Recently Relevant to Health Maintenance Additional Health Concerns Infection Onset Date Last Indicated MRSA 11/06/2018 11/06/2018 Insurance [facility] Care Teams Circular Tank Cooper Relationship Specialty Start Date End Date Jae Ornelas MD [address] [place] [address] PCP - General FAMILY PRACTICE 06/09/18 Nadine Aiken MD [address] [place] [address] Consulting Physician CARDIOVASCULAR DISEASE 04/18/19
--- OUTSIDE RECORDS SUMMARY | 2025-08-25 01:05 | XMS_ITS | Encounter Summary ---
Author Organization [facility] Address [facility] [place] [address] Care Team Providers Care Lockstitch Sleeve Setter Name Role Phone Jae Ornelas MD Primary Care Provider [phone] Nadine Aiken MD Unavailable [phone] Encounter Details Date Type Department Care Team (Late st Contact Info) Description 01/05/2018 Abstract [facility] CONVERSION [address] [place] [address] , Generic MD Matt Social History Tobacco [...] documented as of this encounter Care Teams Lockstitch Sleeve Setter Relationship Specialty Start Date End Date Jae Ornelas MD [address] [place] [address] PCP - General FAMILY PRACTICE 06/09/18 Nadine Aiken MD [address] [place] [address] Consulting Physician CARDIOVASCULAR DISEASE 04/18/19 documented as of this encounter
--- OUTSIDE RECORDS SUMMARY | 2025-08-25 01:05 | XMS_ITS | Encounter Summary ---
Author Organization [facility] Address [facility] [place] [address] Care Team Providers Care Production Line Welder Name Role Phone Jae Ornelas MD Primary Care Provider [phone] Nadine Aiken MD Unavailable [phone] Encounter Details Date Type Department Care Team (Late st Contact Info) Description 03/29/2019 Abstract SFL CONVERSION [address] [place] [address] , Generic ConversionMD Social History Tobacco Use [...] documented as of this encounter Care Teams Production Line Welder Relationship Specialty Start Date End Date Jae Ornelas MD [address] [place] [address] PCP - General FAMILY PRACTICE 06/09/18 Nadine Aiken MD [address] [place] [address] Consulting Physician CARDIOVASCULAR DISEASE 04/18/19 documented as of this encounter
[2025-08-25 13:12] VITALS: BP 153/99; PULSE 100; RESP 18; TEMP 36.6; O2SAT 98
[2025-08-25 13:18] LABS: BEDSIDEPREGUCG Negative (Negative)
[2025-08-25] MEDS: LACTATED RINGERS 1,000 ML 150 ML IV CONT (13:19)
--- NOTE | 2025-08-25 13:19 | PM.HPGS ---
History of Present Illness History of Present Illness Consent: Risks, benefits, and alternatives have been discussed and questions answered. Patient agrees to proceed with procedure. Chief complaint: Dysphagia, unspecified Narrative: Jen Louise is a 34 year old female here for egd and colonscopy, last one 2013. She has dysphagia and blood in stools. Review of Systems Review of Systems: All systems reviewed & are unremarkable except as noted in HPI and below PMFSH Past Medical History Medical History Arthritis Chronic headaches Toe fracture Anxiety Surgical History Surgical History Previous section History of myringotomy Social History Social History Smoking packs per day: 1.5 Smoking cigarettes per day: 30.0 Smoking status: Former smoker Tobacco type: cigarettes and e-cigarettes/vaping Alcohol intake: current Alcohol use details: Occasional Substance use: never Do You Feel Safe in your Home?: Yes Lack of Transportation: No Lack of Food: Never True Current Housing: I Have Housing Concerned About Future Housing: No Difficulty Paying Gas/Electric Bills: No Difficulty Paying for Meds: No Currently Unemployed: No Education: Trade/Vocational Certificate Difficulty w/ Childcare or Family Care: No Living arrangements: with family Meds Home Medications and Allergies Home Medications ?Medication ?Instructions ?Recorded ?Confirmed ?Type albuterol sulfate 90 mcg/actuation 2 puff inhalation PRN PRN 07/21/24 08/21/25 History aerosol inhaler Shortness Of Breath Or Wheezing hydroxyzine pamoate 25 mg capsule 25 mg PO PRN PRN Anxiety 07/21/24 08/21/25 History cyclobenzaprine 10 mg tablet 10 mg PO BID 07/07/25 08/25/25 History gabapentin 600 mg tablet 600 mg PO TID 07/07/25 08/25/25 History oxycodone-acetaminophen 5 mg-325 1 tablet PO Q6H PRN pain 07/07/25 08/21/25 History mg tablet venlafaxine 150 mg 150 mg PO DAILY 07/07/25 08/25/25 History capsule,extended release 24 hr dicyclomine 10 mg capsule 10 mg PO .every 6 hours PRN 07/29/25 08/21/25 Rx abdominal pain #360 caps ergocalciferol (vitamin D2) 1,250 50,000 unit PO WEEKLY 08/21/25 08/25/25 History mcg (50,000 unit) capsule hydroxyzine HCl 50 mg tablet 50 mg PO BID PRN severe anxiety 08/21/25 08/21/25 History ondansetron HCl 4 mg tablet 4 mg PO Q6H PRN nausea and 08/21/25 Rx vomiting #4 tabs rimegepant 75 mg disintegrating 75 mg PO DAILY PRN migraine 08/21/25 08/21/25 History tablet (Nurtec ODT) headache rosuvastatin 20 mg tablet 20 mg PO DAILY 08/21/25 08/25/25 History Allergies Allergy/AdvReac Type Severity Reaction Status Date / Time latex Allergy Intermediate Rash Verified 08/25/25 13:10 hydrocodone (From Vicodin) Allergy Dyspnea / Verified 08/25/25 13:10 SOB Vital Signs Vital Signs - 24 hr 08/25/25 13:12 Temperature 97.9 F Pulse Rate 100 Respiratory Rate 18 Blood Pressure 153/99 H Pulse Oximetry 98 Oxygen Delivery Room Air Exam Const: General: comfortable, no acute distress and obese HENMT: Face/Nose/Sinus: Normal nares present Eyes: General: appearance normal, both eyes and all related structures Neck: Neck: no JVD Resp: Auscultation: clear to auscultation bilaterally Cardio: Rate: regular rate Rhythm: regular rhythm GI: Inspection: non-distended GI Palp: Yes Soft to palpation Skin: General skin exam: normal color Extrem: General: normal to inspection Psych: Mental Status: mental status grossly normal Assessment and Plan Assessment and plan (1) Hematochezia: Code(s): K92.1 - Melena Status: Acute Assessment and Plan: colonoscopy (2) Dysphagia: Code(s): R13.10 - Dysphagia, unspecified Status: Acute Assessment and Plan: egd
--- NOTE | 2025-08-25 13:25 | P.PNAN_ITS ---
Anes - Initial Pre Proc Eval Procedure: Operation Date: 08/25/25 14:30 Proposed Procedures p EGD & Diagnostic Colonoscopy - Palmer Fortune MD Date/Time: 08/25/25 13:25 Surgeon: Palmer Fortune MD Pre Op Diagnosis: Dysphagia, unspecified Patient Data Age: 34 Gender: F Height: 1.68 m Weight: 166.4 kg Last Vital Signs Temp 97.9 F 08/25/25 13:12 Pulse 100 08/25/25 13:12 Resp 18 08/25/25 13:12 BP 153/99 H 08/25/25 13:12 Pulse Ox 98 08/25/25 13:12 O2 Del Method Room Air 08/25/25 13:12 Allergies Allergy/AdvReac Type Severity Reaction Status Date / Time latex Allergy Intermediate Rash Verified 08/25/25 13:10 hydrocodone (From Vicodin) Allergy Dyspnea / Verified 08/25/25 13:10 SOB Home Medications ?Medication ?Instructions ?Recorded ?Confirmed ?Type albuterol sulfate 90 mcg/actuation 2 puff inhalation P RN PRN 07/21/24 08/21/25 History aerosol inhaler Shortness Of Breath Or Wheez ing hydroxyzine pamoate 25 mg capsule 25 mg PO PRN PRN Anx iety 07/21/24 08/21/25 History cyclobenzaprine 10 mg tablet 10 mg PO BID 07/07/2502/13 History gabapentin 600 mg tablet 600 mg PO TID 07/07/2508/25 History oxycodone-acetaminophen 5 mg-325 1 tablet PO Q6H PRN p ain 07/07/25 08/21/25 History mg tablet venlafaxine 150 mg 150 mg PO DAILY 07/07/2502/13 History capsule,extended release 24 hr dicyclomine 10 mg capsule 10 mg PO .every 6 hours PRN 07/29/25 08/21/25 Rx abdominal pain #360 caps ergocalciferol (vitamin D2) 1,250 50,000 unit PO WEEKL Y 08/21/25 08/25/25 History mcg (50,000 unit) capsule hydroxyzine HCl 50 mg tablet 50 mg PO BID PRN severe a nxiety 08/21/25 08/21/25 History ondansetron HCl 4 mg tablet 4 mg PO Q6H PRN nausea and 08/21/25 Rx vomiting #4 tabs rimegepant 75 mg disintegrating 75 mg PO DAILY PRN yan rosas 08/21/25 08/21/25 History tablet (Nurtec ODT) headache rosuvastatin 20 mg tablet 20 mg PO DAILY 08/21/25 110 02/13 History Laboratory Tests 08/25/25 13:12 POC Urine HCG, Qual Negative (Negative) Patient hx anesthesia problems: none Family hx anesthesia problems: none Results Review: All pre-operative results and documents have been reviewed as part of the pre- operative evaluation. [facility] Past Medical History Medical History Arthritis Chronic headaches Toe fracture Anxiety Surgical History Surgical History Previous section History of myringotomy Social History Social History Smoking packs per day: 1.5 Smoking cigarettes per day: 30.0 Smoking status: Former smoker Tobacco type: cigarettes and e-cigarettes/vaping Alcohol intake: current Alcohol use details: Occasional Substance use: never Do You Feel Safe in your Home?: Yes Lack of Transportation: No Lack of Food: Never True Current Housing: I Have Housing Concerned About Future Housing: No Difficulty Paying Gas/Electric Bills: No Difficulty Paying for Meds: No Currently Unemployed: No Education: Trade/Vocational Certificate Difficulty w/ Childcare or Family Care: No Living arrangements: with family Anes - Evga Final PreProcedure Day of Procedure 08/25/25 13:25 Patient weight: super morbidly obese Lungs: normal air movement Airway: Mallampati scale class II Neurological: alert and oriented Last oral intake: >/= 8 hours ASA classification: IV Emergent: no Anesthetic plan: proceed Anesthesia type and monitoring: general GIVS and standard monitoring Results Review: All pre-operative results and documents have been reviewed as part of the pre- operative evaluation. BMI 59, VENKAT on CPAP, ex smoker quit 12/2024, after 24 years, anxiety, pt now w dysphagia and blood in stool. Reports that she can walk 1-2 fos, no cp or sob. Informed Consent: The patient's anesthetic plan and its attendant risks and benefits were discussed with the patient/family/POA. Questions were solicited and answers provided to the satisfaction of the patient/family/POA.
[2025-08-25] MEDS: BENZOCAINE (*SP) 60 ML SPRAY CAN (HURRICAINE) 1 SPRAY MUCOUS MEM (13:31)
--- NOTE | 2025-08-25 13:51 | S_PTH ---
PATIENT: Jen Louise LOC: SARAH Ramon#:[id number] AGE/SX: 34/F ROOM: RE08/25/[address]: Palmer Fortune MD : 1990 BED: DIS: 08/25/2025 SPEC #: [id number] RECD: 08/25/25 13:53 STATUS: EVELINA REAutumn #: [id number] DIANA: 08/25/25 13:[address]: Palmer Fortune DEPT: [facility] Surgical RECD BY: Karli Paulson ENTERED: 08/25/25 13:54 SP TYPE: Surgical OTHR DR: Jae Ornelas MD Tissues: A - Esophageal Biopsy B - Gastric Biopsy C - Colon Polypectomy D - Colon Polypectomy Procedures: Hematoxylin and Eosin Stain Gross and Microscopic Level 4
[2025-08-25 13:53] VITALS: BP 125/74; PULSE 91; RESP 23; O2SAT 99
--- NOTE | 2025-08-25 13:55 | SUR.OPER ---
EGD ended at 1338, Colon began at 1341
[2025-08-25 14:03] VITALS: BP 125/69; PULSE 86; RESP 25; O2SAT 99
[2025-08-25 14:13] VITALS: BP 125/78; PULSE 83; RESP 24; O2SAT 99
== END 2025-08-25 14:23 | disposition home or self-care (01) ==
PROVIDERS: Anesthesiology; PCP Family Medicine; Referring Provider Nurse Practitioner; Visit Provider Internal Medicine Gastroenterology
PROC: 0DJ08ZZ Inspection of Upper Intestinal Tract, Via Natural or Artificial Opening Endoscopic (ICD-10-PCS; CPT 45378; principal; 2025-08-25 14:30)
DX: K21.00 Gastro-esophageal reflux disease with esophagitis, without bleeding (principal); K31.89 Other diseases of stomach and duodenum; D12.3 Benign neoplasm of transverse colon; D12.5 Benign neoplasm of sigmoid colon; K64.8 Other hemorrhoids; K57.30 Diverticulosis of large intestine without perforation or abscess without bleeding; R51.9 Headache, unspecified; F41.9 Anxiety disorder, unspecified; M19.90 Unspecified osteoarthritis, unspecified site; G47.33 Obstructive sleep apnea (adult) (pediatric); E66.01 Morbid (severe) obesity due to excess calories; Z68.43 Body mass index [BMI] 50.0-59.9, adult; Z79.51 Long term (current) use of inhaled steroids; Z79.891 Long term (current) use of opiate analgesic; Z99.89 Dependence on other enabling machines and devices; Z98.890 Other specified postprocedural states; Z87.891 Personal history of nicotine dependence
CPT/HCPCS: 43239; 43450; 45385; 88305; J2003; J2704; J7120

== ENCOUNTER 2025-10-06 16:30 | Outpatient (CLI) | payer OTHER, SELFPAY ==
--- NOTE | ~2025-10-06 | XR_ITS ---
EXAMINATION: XR hip RT min 2V, 10/06/2025 17:00 LIBRARY CUSTOMER SERVICE CLERK HISTORY: PAIN AFTER MULTIPLE FALLS COMPARISON: No comparisons available. Findings: No acute fracture or malalignment. No significant degenerative changes. Soft tissues unremarkable. Impression: No acute fracture or malalignment. Reviewed, dictated and finalized at location P. [facility] CUSTOMER SERVICE CLERK Impression: No acute fracture or malalignment.
--- NOTE | 2025-10-06 16:58 | ECG_ITS ---
Test Date: 2025-10-06 17:05:22 Measurements Intervals [place] Rate: 79 P: 0 DC: 140 QRS: 42 QRSD: 105 T: 46 QT: 388 QTc: 446 Interpretive Statements SINUS RHYTHM NORMAL ECG Compared to ECG 05/19/2025 16:45:01 NO SIGNIFICANT CHANGE Electronically Signed On 10-06-2025 20:46:03 CONSTRUCTION PROJECT COORDINATOR by Marc Thomas D.O.
--- OUTSIDE RECORDS SUMMARY | 2025-10-06 18:11 | XMS_ITS | Clinical Summary ---
Author Organization [facility] Address [address] [place] [address] Care Team Providers Care Metal Treater Name Role Phone Unavailable Primary Care Provider Unavailabl e Social History Tobacco Use Types Packs/Day Years Used Date Smoking Tobacco: Never Assessed Comments Unknown Sex and Gender Information Value Date Recorded Sex Assigned at Not on file Legal Sex Female 2:04 PM EST Gender Identity Not on file Sexual Orientation Not on file Plan of Treatment Not on file Medical Devices Not on file Insurance [facility]
--- OUTSIDE RECORDS SUMMARY | 2025-10-06 18:11 | XMS_ITS | Clinical Summary ---
Author Organization [facility] Address [address] [place] [address] Care Team Providers Care Candy Spreader Name Role Phone Jae Ornelas MD Primary Care Provider [phone] Nadine Aiken MD Unavailable [phone] Allergies Active Allergy Reactions Criticality Noted Date [...] ligament of left ankle, sequela 07/10/2022 03/29/2023 Encounters Date Type Department Care Team Description 10/03/2025 Patient Self-Triage [facility] Provider from Last 3 Months Family History Medical History Relation Comments Diabetes [...] Hepatitis B Vaccines Completed 08/26/1999, 03/25/1999, 02/25/1999 Influenza Adult Completed 09/11/2025, 09/23, 09/06/2022, Additional history exists Hepatitis A Vaccines Aged Out No long [...] (08/06/2024 11:17 AM CDT) THIN PREP PAP [facility] [address] [address] Department of Pathology Pathology Report CERVICAL/VAGINAL PAP SMEAR REPORT Name: JEN LOUISE Age: 1 1990 (Age: 33) Location: [facility] Sex: F Collected Date: 08/06/2024 Hospital #: [id number] Date Received: 08/07/2024 Date Reported: 08/11/2024 Provider: [...] is not effective in detecting cervical adenocarcinoma. [facility] 08/06/2024 11:1 7 AM CDT 08/07/2024 11:17 AM CDT Comment:CERVICAL/ENDOCERVICA L us Destiny Hernandez MD PATHOLOGY/CYTOLOGY ORDER DELIO Final Result [facility] [address] [place] [address], * HUMAN PAPILLOMAVIRUS, HIGH-RISK TYPES (08/06/2024 8:00 AM CDT) SPECIMEN ENDOCERVIX 08/07/2024 4:00 PM CDT [facility] HPV DNA HIGH RISK NEGATIVE NEGATIVE 08/09/2024 12:34 AM CDT [facility] Comment:SEE CYTOLOGY REPORT 08/06/2024 8:00 AM CDT Destiny Hernandez MD PATHOLOGY/CYTOLOGY ORDER DELIO Final Result Performing Organization Address [facility] Co de Phone Number [facility] [address] [place] [address], from Last 3 Months or Most Recently Relevant to Health Maintenance Additional Health Concerns Infection Onset Date 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
--- OUTSIDE RECORDS SUMMARY | 2025-10-06 18:11 | XMS_ITS | Encounter Summary ---
Author Organization [facility] Address [facility] [place] [address] Care Team Providers Care Comb Setter Name Role Phone Jae Ornelas MD Primary Care Provider [phone] Nadine Aiken MD Unavailable [phone] Encounter Details Date Type Department Care Team (Late st Contact Info) Description 03/29/2019 Abstract SFL CONVERSION [address] [place] [address] , Generic ConversionMD Social History Tobacco Use [...] documented as of this encounter Care Teams Comb Setter Relationship Specialty Start Date End Date Jae Ornelas MD [address] [place] [address] PCP - General FAMILY PRACTICE 06/09/18 Nadine Aiken MD [address] [place] [address] Consulting Physician CARDIOVASCULAR DISEASE 04/18/19 documented as of this encounter
--- OUTSIDE RECORDS SUMMARY | 2025-10-06 18:11 | XMS_ITS | Encounter Summary ---
Author Organization [facility] Address [facility] [place] [address] Care Team Providers Care Pellet Machine Operator Name Role Phone Jae Ornelas MD Primary Care Provider [phone] Nadine Aiken MD Unavailable [phone] Encounter Details Date Type Department Care Team (Late st Contact Info) Description 01/05/2018 Abstract SJS CONVERSION [address] [place] [address] , Generic MD Matt Social History Tobacco [...] documented as of this encounter Care Teams Pellet Machine Operator Relationship Specialty Start Date End Date Jae Ornelas MD [address] [place] [address] PCP - General FAMILY PRACTICE 06/09/18 Nadine Aiken MD [address] [place] [address] Consulting Physician CARDIOVASCULAR DISEASE 04/18/19 documented as of this encounter
== END 2025-10-06 16:31 | disposition home or self-care (01) ==
LOC: CHSIMG 16:39
PROVIDERS: PCP Family Medicine; Visit Provider Nurse Practitioner Family
DX: M25.551 Pain in right hip (principal); M70.61 Trochanteric bursitis, right hip; W19.XXXA Unspecified fall, initial encounter; Z98.84 Bariatric surgery status; G47.30 Sleep apnea, unspecified
CPT/HCPCS: 73502; 93005